=== PATIENT | male | born 1945 | race Caucasian/White ===

== ENCOUNTER 2017-03-03 12:13 | Inpatient (IN) ==
--- NOTE | 2017-03-03 10:12 | Magnetic Resonance Report ---
CLINICAL INFORMATION:Reason for Exam:Back pain COMPARISON: Abdomen CT of 02/21/17 TECHNIQUE: Sagittal T1 FLAIR, STIR, fast spin echo T2, axial T2 weighted images were acquired. FINDINGS: L5-S1 disc has a small midline posterior bulge. There is moderate arthritis in both facets. This is causing mild to moderate stenosis of the left-sided neural foramen. The central canal right-sided foramen are normal. At L4-5 disc is normal in height. There is a Schmorl's node along the inferior endplate of L4. Small posterior bulge is present. Moderate arthritis is present in the facets and there is hypertrophy of the ligamentum flavum, causing mild to moderate spinal canal stenosis. There is moderate stenosis of the right mild stenosis left side foramina. At L3-4 disc is mildly narrowed. Small midline bulge. There is severe arthritis in the facets and hypertrophy of ligamentum flavum causing moderately severe spinal canal stenosis. There is mild stenosis of both neural foramina. There is infiltration of bone marrow in the upper two thirds of the body of L3. There is no collapse of the vertebra or disruption of the overlying cortex. Slightly to left of midline, posteriorly, the superior endplate of L3 there is a Schmorl's node. Adjacent to this there is a small to intermediate sized broad-based posterior bulge. There is increased signal within the nucleus pulposus on the T2-weighted views. Mild arthritis is present in the facets. There is mild central canal stenosis at L to three. The neural foramina are normal in caliber. There is no paraspinal mass or abnormal fluid collection around the L3 vertebra. There are large anterior osteophytes at L2-3. L1-2 disc is moderately narrowed. There is a small broad-based posterior bulge and mild arthritis in the facets. This is not causing significant stenosis. There are large anterior osteophytes. T12-L1 disc space is normal. There is a Schmorl's node along the inferior endplate of T12 there medium-size anterior osteophytes. The spinal cord is normal and the conus is at the mid L1 level. IMPRESSION: Edema or inflammation in the bone marrow at L3 with altered signal in the nucleus pulposus at L2-3. The signal changes in the bone marrow could be Modic type I reactive changes secondary to disc degeneration. However, discitis and osteomyelitis is also the differential. Moderately severe spinal canal stenosis at L3-4 due to bulging discs and arthritis in the facets Mild to moderate spinal canal stenosis at L4-5 Interpreted and Authenticated by: Mitch Peraza 03/03/17
[2017-03-03] MEDS ORDERED: LIDOCAINE 1% 20 ML VIAL SQ ONE (12:14)
[2017-03-03] MEDS ORDERED: VANCOMYCIN 1,500 MG in 0.9 % SODIUM CHLORIDE 500 ML IV ONE (12:22)
--- NOTE | 2017-03-03 12:29 | Emergency Department Note ---
Back Pain HPI - General Chief Complaint: Back Pain/Injury Stated Complaint: osteomylitis Time Seen by Provider: 03/03/17 12:22 Source: patient Limitations: no limitations - History of Present Illness HPI Narrative: This patient has had localized low back pain since . He has been seen several times in the ER and primary and finally had an MRI today which showed concern for discitis and osteomyelitis at L2-3. He has had fever chills and does have a low-grade temp today. At one ER visit someone thought he might have pneumonia and to treating him with some antibiotics but have made no difference in his pain. Also hydrocodone has not helped his back pain. History of disc disease back surgery. - Related Data Home Medications Medication Instructions Recorded Confirmed Ascorbate Calcium [Vitamin C] 500 mg PO QDAY 04/23/15 03/01/17 Aspirin [Ecotrin] 81 mg PO QDAY 04/23/15 03/01/17 Fenofibrate,Micronized 134 mg PO QDAY 04/23/15 03/01/17 [Fenofibrate] Losartan/Hydrochlorothiazide 1 each PO QDAY 04/23/15 03/01/17 [Losartan-Hctz 100-25 mg Tab] Minocycline [Minocin] 100 mg PO DAILY 04/23/15 03/01/17 Potassium 99 mg PO QDAY 04/23/15 03/01/17 Rosuvastatin Calcium [Crestor] 5 mg PO HS 04/23/15 03/01/17 Vitamin E 100 unit PO QDAY 04/23/15 03/01/17 amitriptyline 10 mg tablet 20 mg PO HS tab 02/08/17 03/01/17 amlodipine 10 mg tablet 10 mg PO QDAY 02/08/17 03/03/17 ipratropium-albuterol 18 mcg-103 spray INHALATION 02/08/17 03/01/17 mcg/actuation aerosol inhaler predniSONE [Prednisone] 0 mg PO .COMPLEX 03/03/17 03/03/17 Previous Rx's Medication Instructions Recorded Aspirin [Ecotrin] 325 mg PO BID #28 tab.ec 04/27/15 Etodolac [Lodine] 400 mg PO BIDP PRN #20 tab 02/21/17 Methocarbamol [Robaxin-750] 750 mg PO TID PRN #30 tab 02/21/17 hydrocodone 10 mg-acetaminophen 1 tab PO Q6H PRN #60 tab 03/03/17 325 mg tablet Allergies Allergy/AdvReac Type Severity Reaction Status Date / Time No Known Drug Allergies Allergy Verified 03/03/17 07:20 Review of Systems Constitutional: Reports: fever, chills Musculoskeletal: Reports: back pain Past Medical History - Past Medical History COUNTS INCLUDE 234 BEDS AT THE [facility] Narrative: Medical History (Last Reviewed 03/01/17 @ 11:59 by Annabelle Lee DO) Strain of lumbar region (Acute) Thoracic back pain (Acute) Back pain (Acute) Rosacea (Chronic) COPD (chronic obstructive pulmonary disease) (Chronic) Wellness examination (Chronic) History of tobacco abuse (Chronic) Joint pain (Chronic) Hyperlipidemia (Chronic) Hypertension, essential (Chronic) Irregular heart beat (Chronic ~2006) Lung disorder (Chronic) Effusion, right knee (Acute) Rosacea (Chronic) Past Surgical History (Last Reviewed 03/01/17 @ 11:59 by Annabelle Lee DO) H/O rotator cuff surgery (Chronic) History of total left knee replacement (Chronic) Hx of appendectomy (Chronic) S/P herniorrhaphy (Chronic) Status post right partial knee replacement (Chronic) Family History (Last Reviewed 03/01/17 @ 11:59 by Annabelle Lee DO) Father Arthritis Diabetes Sister Breast cancer Medical history: Reports: COPD, hyperlipidemia, hypertension Surgical history ED: Reports: appendectomy, herniorrhaphy, knee replacement, orthopedic, other (Rotator cuff) - Social History smoking status: Former smoker Alcohol use: Reports: Occasionally Drug use: Reports: none Physical Exam Limitations: no limitations General appearance: alert Head: atraumatic Eye: Present: normal appearance ENT: normal exam Neck: Present: normal inspection Chest: Present: normal inspection Respiratory: Present: normal lung sounds bilaterally Cardiovascular: Present: regular rate, normal rhythm, normal heart sounds Abdominal: Present: soft. Absent: distention, tenderness Back: Present: normal inspection, tenderness, paraspinal tenderness, vertebral tenderness Neurological: Present: alert Psychiatric: Present: normal affect, normal mood Skin: Present: warm, dry, intact Course Vital Signs Temperature 97.9 F 03/03/17 12:14 Pulse Rate 85 03/03/17 12:14 Respiratory Rate 16 03/03/17 12:14 Blood Pressure 153/89 03/03/17 12:14 Pulse Oximetry (%) 95 03/03/17 12:14 Temperature 97.9 F 03/03/17 12:14 Pulse Rate 74 03/03/17 14:47 Respiratory Rate 16 03/03/17 12:14 Blood Pressure 158/86 03/03/17 14:47 Pulse Oximetry (%) 94 03/03/17 14:47 Back Pain/Injury - MDM Narrative Medical decision making narrative: Have discussed this case with Dr. Sol who requests an aspiration of the disc space by the radiologist. Dr. Peraza is agreeable to doing this. Patient was given vancomycin here in the emergency room. He will be admitted to the hospital by Dr. Gonzalez with Dr. Sol consulting. - Lab Data Lab results reviewed: Yes I reviewed the patient's lab results. Result diagrams: 03/03/17 12:32 03/03/17 13:27 Lab Results 03/03/17 03/03/17 03/03/17 Range/Units 12:32 12:32 13:27 WBC 18.2 H (4.5-11.0) K/mcL RBC 4.60 (4.50-5.90) M/mcL Hgb 14.5 (13.5-16.5) g/dL Hct 42.8 (41.0-55.0) % MCV 93.0 (80.0-100.0) fL MCH 31.6 (26.0-34.0) pg MCHC 34.0 (31.0-36.0) g/dL RDW 12.9 (11.5-14.5) % Plt Count 426 (140-440) K/mcL MPV 9.3 (7.4-10.4) fL Gran % 91.2 H (38.0-78.0) % Lymph % (Auto) 5.0 L (15.5-49.0) % [place] % (Auto) 2.9 (1.0-12.0) % Eos % (Auto) 0.3 (0.0-7.0) % Baso % (Auto) 0.6 (0.0-2.0) % Gran # 16.6 H (1.8-8.0) K/mcL Lymph # (Auto) 0.9 L (1.5-4.8) K/mcL [place] # (Auto) 0.5 (0.1-0.9) K/mcL Eos # (Auto) 0.1 (0.0-0.7) K/mcL Baso # (Auto) 0.1 (0.0-0.3) K/mcL ESR 57 H (0-15) mm/hr Sodium TNP 133 Potassium TNP 4.7 Chloride TNP 94 L Carbon Dioxide TNP 27 Anion Gap TNP 12.0 BUN TNP 17 Creatinine TNP 0.8 GFR Calculation Not Reportable 90 Glucose TNP 126 H Calcium TNP 9.5 Total Bilirubin TNP 0.6 AST TNP 13 ALT TNP 17 Alkaline Phosphatase TNP 79 C-React Prot High Sens TNP 38.6 H Total Protein TNP 6.9 Albumin TNP 4.0 Globulin TNP 2.9 Albumin/Globulin Ratio TNP 1.4 Disposition Pt seen by [employer]/PA only: No Clinical Impression: Discitis of lumbar region Disposition: Xfer As Inpt ([facility]) Condition: Good Referrals: Annabelle Lee DO [Primary Care Provider] - Time of Disposition: 15:23
[2017-03-03] MEDS: 0.9 % SODIUM CHLORIDE 1,000 ML IV SCH ×2 (12:45→22:38)
[2017-03-03] MEDS: HYDROmorphone 2 MG/ML SYRINGE IV PRN ×5 (12:58→23:34)
[2017-03-03 13:05] LABS: Basophils # (Auto) 0.1 K/mcL (0.0-0.3); Basophils % (Auto) 0.6 % (0.0-2.0); Eosinophils # (Auto) 0.1 K/mcL (0.0-0.7); Eosinophils % (Auto) 0.3 % (0.0-7.0); Granulocytes % (Auto) 91.2 % (38.0-78.0); Lymphocytes # (Auto) 0.9 K/mcL (1.5-4.8); Mean Corpuscular Hemoglobin 31.6 pg (26.0-34.0); Monocytes # (Auto) 0.5 K/mcL (0.1-0.9); Monocytes % (Auto) 2.9 % (1.0-12.0); Platelet Count 426 K/mcL (140-440); Red Cell Distribution Width 12.9 % (11.5-14.5)
[2017-03-03 14:24] LABS: Erythrocyte Sedimentation Rate 57 mm/hr (0-15)
[2017-03-03 14:31] LABS: ALT/SGPT 17 U/l (0-40); Albumin/Globulin Ratio 1.4 (1.0-2.3); Alkaline Phosphatase 79 U/L (39-117); Blood Urea Nitrogen 17 mg/dl (8-23)
[2017-03-03 14:42] LABS: CRP,High Sensitivity 38.6 mg/L (1.0-3.0)
--- NOTE | 2017-03-03 15:37 | Internal Med History&Physical ---
Medical - H&P: HPI Patient information: Note initiated : 03/03/17 at 3:34 pm Service Date, if different from initiated Date: [] Patient: Cesar Nassar a 71 y/o M admitted on for osteomylitis. Chief Complaint: [] History of present illness: Mr. Nassar is a 71 year old man with a history of COPD and hypertension, who has been struggling with low back pain for about 3 weeks. He has had increasing problems getting his pain control. Has been to see either his primary care provider or the emergency room 5 times now, with uncontrolled pain. He was finally sent back into the emergency room today, and underwent an MRI, which is suggestive of possible discitis. He and his report that he has had a fever as high as 101 for about 4 days now. He describes the pain in his low back is a feeling that everything is just tensing up and he just cannot get comfortable or relax. He cannot lay down in bed, so he has been sleeping in a recliner. He rates his pain currently as a 10 out of 10. During 1 of his recent ER visits he was diagnosed with possible pneumonia and treated with antibiotics. However subsequent reading of that chest film did not show pneumonia. The patient said he did have a slight cough at the time, but that is resolved. Otherwise, he denies headaches or dizziness new eye or ear symptoms sinus or teeth pain, sore throat, chest pain or palpitations. He does have chronic dyspnea on exertion due to COPD, which is unchanged. He denies abdominal pain, nausea or vomiting, diarrhea. He does note chronic constipation for which he takes a stool softener. He denies dysuria other than fairly frequent urination , which is chronic. He denies recent back trauma and he has had no known bacteremia or surgeries. I believe his last surgery was a right knee replacement in April of 2015. He was treated with a steroid taper on February 22, but he had had symptoms for quite some time at that point. Medical History Rosacea (Chronic) COPD (chronic obstructive pulmonary disease) (Chronic) History of tobacco abuse-resolved. Joint pain (Chronic) Hyperlipidemia (Chronic) Hypertension, essential (Chronic) Irregular heart beat (Chronic ~2006) Effusion, right knee (Acute) Surgical History H/O rotator cuff surgery (Chronic) 2006 x2 History of total left knee replacement (Chronic) 2011 Hx of appendectomy (Chronic) 2004 S/P herniorrhaphy (Chronic) 1970's Status post right partial knee replacement (Chronic) 2015 Medication List amitriptyline 20 mg PO HS amlodipine (Norvasc) 10 mg PO QDAY ascorbate calcium 500 mg PO QDAY aspirin 81 mg PO QDAY Not started yet: Etodolac 400 mg PO BIDP PRN fenofibrate micronized 134 mg PO QDAY hydrocodone-acetaminophen 7.5-325 mg 1 tab PO 3-4XD ipratropium-albuterol 18-103 mcg/actuation sprays 4 times daily as needed. losartan-hydrochlorothiazide 100-25 mg 1 ea PO QDAY methocarbamol 750 mg PO TID PRN minocycline 100 mg PO DAILY potassium 99 mg PO QDAY 02/22: prednisone take 4 tabs x 3 days then 3 tabs x 3 days, then 2 tabs x three days, then 1 tab x 3 days, then stop PO ; administer with food or milk rosuvastatin 5 mg PO HS vitamin E 100 units PO QDAY Allergies/Adverse Reactions No Known Drug Allergies Allergy Family History Father Arthritis Diabetes Sister Breast cancer Mother of "old age" Social History The patient is and lives with his . He does have family in town. He smoked from the age of 15 until approximately age 53, and then quit. He drinks 1-2 alcoholic drinks per day, usually bourbon. He does not use drugs. Medical - H&P: Meds Home Medications Medication Instructions Recorded Confirmed Type Ascorbate Calcium [Vitamin C] 500 mg PO QDAY 04/23/15 03/01/17 History Aspirin [Ecotrin] 81 mg PO QDAY 04/23/15 03/01/17 History Fenofibrate,Micronized 134 mg PO QDAY 04/23/15 03/01/17 History [Fenofibrate] Losartan/Hydrochlorothiazide 1 each PO QDAY 04/23/15 03/01/17 History [Losartan-Hctz 100-25 mg Tab] Minocycline [Minocin] 100 mg PO DAILY 04/23/15 03/01/17 History Potassium 99 mg PO QDAY 04/23/15 03/01/17 History Rosuvastatin Calcium [Crestor] 5 mg PO HS 04/23/15 03/01/17 History Vitamin E 100 unit PO QDAY 04/23/15 03/01/17 History Aspirin [Ecotrin] 325 mg PO BID #28 tab.ec 04/27/15 03/01/17 Rx amitriptyline 10 mg tablet 20 mg PO HS tab 02/08/17 03/01/17 History amlodipine 10 mg tablet 10 mg PO QDAY 02/08/17 03/03/17 History ipratropium-albuterol 18 mcg-103 spray INHALATION 02/08/17 03/01/17 History mcg/actuation aerosol inhaler Etodolac [Lodine] 400 mg PO BIDP PRN #20 tab 02/21/17 03/03/17 Rx Methocarbamol [Robaxin-750] 750 mg PO TID PRN #30 tab 02/21/17 03/03/17 Rx hydrocodone 10 mg-acetaminophen 1 tab PO Q6H PRN #60 tab 03/03/17 Rx 325 mg tablet predniSONE [Prednisone] 0 mg PO .COMPLEX 03/03/17 03/03/17 History Allergies Allergy/AdvReac Type Severity Reaction Status Date / Time No Known Drug Allergies Allergy Verified 03/03/17 07:20 Medical - H&P: Exam - Constitutional Vitals: Temp Pulse Resp BP Pulse Ox 97.9 F 74 16 158/86 94 03/03/17 12:14 03/03/17 14:47 03/03/17 12:14 03/03/17 14:47 03/03/17 14:47 O2 sats ranged from 89-100%. This is a well-developed well-nourished elderly man, who appears quite uncomfortable. He is constantly shifting in bed trying to relieve his back pain. Head: Normocephalic, atraumatic. Rosacea is present. Ears: TMs and canals are clear. Eyes: PERRLA, EOMI, anicteric. Pharynx: Pharynx is normal in appearance mucosa is normal in appearance. Teeth are in good condition. Neck: Is supple without obvious lymphadenopathy, JVD, thyromegaly, bruits. Cardiac exam: Shows regular rate and rhythm with normal S1 and S2 without murmurs rubs or gallops. Lungs: Have slightly decreased breath sounds, but otherwise are clear to auscultation, without rales, rhonchi, wheezes. Abdomen: Is soft and nontender, but a difficult exam, as the patient insists on sitting upright. Bowel sounds appear active. Back: There is a small Band-Aid to the right of his mid lumbar spine where he had his recent aspiration done. He does not seem to have any particular tenderness over the spine itself. Extremities: Show no cyanosis, clubbing, edema. There is a well-healed scar over the left knee. Neurologic: The patient is alert and oriented, calm but appears uncomfortable. Cranial nerves are grossly intact. Motor strength appears intact throughout, but the patient resists exam of his lower extremities because he is so uncomfortable. Any movement of his legs exacerbates his back pain, which is in the lumbar area and just to the right of the lumbar spine. Medical - H&P: Reslt - Labs CBC & Chem 7: 03/03/17 12:32 03/03/17 13:27 Labs: Short CBC 03/03/17 Range/Units 12:32 WBC 18.2 H (4.5-11.0) K/mcL Hgb 14.5 (13.5-16.5) g/dL Hct 42.8 (41.0-55.0) % Plt Count 426 (140-440) K/mcL BMP 03/03/17 03/03/17 12:32 13:27 Sodium TNP 133 Potassium TNP 4.7 Chloride TNP 94 L Carbon Dioxide TNP 27 BUN TNP 17 Creatinine TNP 0.8 Glucose TNP 126 H Calcium TNP 9.5 Liver Function 03/03/17 03/03/17 Range/Units 12:32 13:27 Total Bilirubin TNP 0.6 AST TNP 13 ALT TNP 17 Alkaline Phosphatase TNP 79 Albumin TNP 4.0 March 03: Spine MRI: IMPRESSION: Edema or inflammation in the bone marrow at L3 with altered signal in the nucleus pulposus at L2-3. The signal changes in the bone marrow could be Modic type I reactive changes secondary to disc degeneration. However, discitis and osteomyelitis is also the differential. Moderately severe spinal canal stenosis at L3-4 due to bulging discs and arthritis in the facets. Mild to moderate spinal canal stenosis at L4-5. CBC: White blood cell count is 18,000, hemoglobin 14, hematocrit 42, platelets 426,000. Differential shows 16,600 granulocytes, 900 lymphocytes Sed rate is high at 57 CRP is elevated at 38 Lactic acid: Pro-calcitonin: Chemistry panel: Show sodium 133, potassium 4.7, chloride 94, bicarb 27, BUN 17 , creatinine 0.8 February 22: CT abdomen and pelvis: IMPRESSION: 1. No evidence of obstructing stone or hydronephrosis. No cause identified for bilateral flank pain 2. 1 mm nonobstructing stone inferior calyx the left kidney 3. Mild prostate enlargement 4. Degenerative central canal, lateral recess and IV foraminal stenosis at L2-3, L3-4 and L4-5. Could the patient's pain be radicular in origin? 5. Moderate emphysema - both lung bases 6. Mild pancreatic atrophy Chest x-ray: Shows mild bibasilar atelectasis. Urinalysis: Shows 4.0 urobilinogen, otherwise normal. February 21: Lumbar spine x-ray: IMPRESSION: 1. Mild chronic wedging of the T10-L1 vertebral bodies due to minimal compression fractures or chronic Scheuermann's disease 2. Degenerative change February 08, 2017: TSH is normal at 2.48 Hepatitis C antibody: Is nonreactive Medical - H&P: A/P (1) Septic discitis of lumbar region Current visit: Yes Status: Acute (2) COPD (chronic obstructive pulmonary disease) Current visit: No Status: Chronic (3) Hypertension, essential Current visit: No Status: Chronic - Narrative A/P Narrative: #1. Infectious disease. Patient presents with severe back pain, significant leukocytosis, and spine MRI suggestive of discitis. -He will be admitted for closer observation and IV antibiotics, empiric coverage with cefepime and vancomycin.. -Frequent neuro checks. -Orthopedic consult with Dr. Sol. If patient develops any neuro deficits, he will need to be transferred out. -Dr. Sol has asked radiology to aspirate this area. Aspirate will be sent for culture.. #2. Cardiac. History of hypertension and questionable arrhythmia. -Monitor. -Continue Norvasc, losartan, HCTZ, cholesterol meds. 3. Pulmonary. History of COPD. Duo nebs plus as needed albuterol. 4. CODE STATUS: Full code. 5. DVT prophylaxis: Subcu heparin ordered, and patient also takes aspirin. I will check with radiology to see if they want us to hold either of these after his aspiration. Aminata's visit took approximately 60 minutes, to review his case with the ER MD twice, review his records and test results, interview and examine him, review plan of care with the patient and his , and write orders.
[2017-03-03] MEDS ORDERED: ACETAMINOPHEN 325 MG TABLET PO PRN (18:01)
[2017-03-03] MEDS ORDERED: NALOXONE HCL 0.4 MG/ML VIAL IV PRN (18:01)
[2017-03-03] MEDS ORDERED: VANCOMYCIN PER PHARMACY IV ONE (18:01)
[2017-03-03] MEDS ORDERED: CALCIUM CARBONATE 500 MG TAB.CHEW CHEWED PRN (18:01)
[2017-03-03] MEDS ORDERED: ALBUTEROL SULFATE 2.5 MG/3 ML NEBULIZER NEB PRN (18:01)
[2017-03-03] MEDS ORDERED: ONDANSETRON 4 MG/2 ML VIAL IV PRN (18:01)
[2017-03-03] MEDS ORDERED: IBUPROFEN 600 MG TABLET PO PRN (19:45)
[2017-03-03] MEDS ORDERED: IPRATROPIUM/ALBUTEROL 3 ML AMPUL.NEB NEB PRN (19:46)
[2017-03-03] MEDS: HYDROcodone/APAP 5/325MG TABLET PO PRN (20:16)
[2017-03-03] MEDS ORDERED: IPRATROPIUM/ALBUTEROL 3 ML AMPUL.NEB NEB SCH (21:00)
[2017-03-03] MEDS ORDERED: HEPARIN 5,000 UNIT/ML VIAL SQ SCH (21:00)
[2017-03-03] MEDS ORDERED: HYDROmorphone 2 MG/ML SYRINGE ONE (21:44)
[2017-03-03] MEDS: CEFEPIME 2 GM VIAL IV SCH (21:46)
[2017-03-03] MEDS: AMITRIPTYLINE 10 MG TABLET PO SCH (23:32)
[2017-03-03] MEDS: 0.9 % SODIUM CHLORIDE 10 ML SYRINGE IV SCH (23:32)
[2017-03-04] MEDS: HYDROmorphone 2 MG/ML SYRINGE IV PRN ×13 (04:04→23:41)
[2017-03-04] MEDS: 0.9 % SODIUM CHLORIDE 10 ML SYRINGE IV SCH ×3 (04:07→21:19)
[2017-03-04 06:33] LABS: Basophils # (Auto) 0 K/mcL (0.0-0.3); Basophils % (Auto) 0.4 % (0.0-2.0); Eosinophils # (Auto) 0.2 K/mcL (0.0-0.7); Eosinophils % (Auto) 1.9 % (0.0-7.0); Lymphocytes # (Auto) 1.6 K/mcL (1.5-4.8); Lymphocytes % (Auto) 16.3 % (15.5-49.0); Mean Cell Volume 93.3 fL (80.0-100.0); Mean Corpuscular HGB Conc 34.7 g/dL (31.0-36.0); Mean Corpuscular Hemoglobin 32.3 pg (26.0-34.0); Monocytes # (Auto) 0.7 K/mcL (0.1-0.9); Monocytes % (Auto) 7.4 % (1.0-12.0); Platelet Count 355 K/mcL (140-440); RBC 3.84 M/mcL (4.50-5.90); Red Cell Distribution Width 12.8 % (11.5-14.5)
[2017-03-04] MEDS: HYDROcodone/APAP 5/325MG TABLET PO PRN ×4 (07:12→21:49)
[2017-03-04] MEDS ORDERED: VANCOMYCIN PER PHARMACY IV SCH (07:15)
[2017-03-04 07:21] LABS: ALT/SGPT 12 U/l (0-40); Albumin 3.4 gm/dL (3.2-5.2); Albumin/Globulin Ratio 1.2 (1.0-2.3); Alkaline Phosphatase 69 U/L (39-117); Bilirubin,Direct < 0.2 mg/dL (0.0-0.3); Blood Urea Nitrogen 16 mg/dl (8-23); C-Reactive Protein 7.2 mg/dl (0.0-0.8); Gamma Glutamyl Transpeptidase 48 U/L (8-61); Uric Acid 3.2 mg/dL (2.5-8.0)
[2017-03-04] MEDS: METHOCARBAMOL 750 MG TABLET PO PRN ×2 (08:11→16:57)
[2017-03-04] MEDS ORDERED: KETOROLAC 15 MG/ML VIAL IV ONE (08:46)
[2017-03-04] MEDS ORDERED: ACETAMINOPHEN 1,000 MG/100 ML BOTTLE IV PRN (08:50)
--- NOTE | 2017-03-04 08:51 | Orthopedic History & Physical ---
History of Present Illness Patient information: Note initiated : 03/04/17 at 8:48 am Service Date, if different from initiated Date: [] Patient: Cesar Nassar a 71 y/o M admitted on 03/03/17 for osteomylitis. Chief Complaint: [Low back pain] HPI: Mr. Nassar is a 71 year old male who was admitted yesterday for intractable low back pain that came on suddenly w/o injury. He denies any lower extremity paresthesias, weakness, saddle paresthesias, or bowel/bladder incontinence. Recent labs show an elevated WBC, CRP, and ESR as well as an MRI which shows increase signal change of the L2-3 disc space and L3 vertebral elise. Review of Systems All systems PM: reviewed and no additional remarkable complaints except as stated Past History Past medical history: Non-contributory Past surgical history: Non-contributory Past family history: Non-contributory Past social history: Non-contributory Medications and Allergies Home Medications Medication Instructions Recorded Confirmed Type Ascorbate Calcium [Vitamin C] 500 mg PO QDAY 04/23/15 03/03/17 History Aspirin [Ecotrin] 81 mg PO QDAY 04/23/15 03/03/17 History Fenofibrate,Micronized 134 mg PO QDAY 04/23/15 03/03/17 History [Fenofibrate] Losartan/Hydrochlorothiazide 1 each PO QDAY 04/23/15 03/03/17 History [Losartan-Hctz 100-25 mg Tab] Minocycline [Minocin] 100 mg PO DAILY 04/23/15 03/03/17 History Potassium 99 mg PO QDAY 04/23/15 03/03/17 History Rosuvastatin Calcium [Crestor] 5 mg PO HS 04/23/15 03/03/17 History Vitamin E 100 unit PO QDAY 04/23/15 03/03/17 History Aspirin [Ecotrin] 325 mg PO BID #28 tab.ec 04/27/15 03/01/17 Rx amitriptyline 10 mg tablet 20 mg PO HS tab 02/08/17 03/03/17 History amlodipine 10 mg tablet 10 mg PO QDAY 02/08/17 03/03/17 History ipratropium-albuterol 18 mcg-103 spray INHALATION 02/08/17 03/01/17 History mcg/actuation aerosol inhaler Etodolac [Lodine] 400 mg PO BIDP PRN #20 tab 02/21/17 03/03/17 Rx Methocarbamol [Robaxin-750] 750 mg PO TID PRN #30 tab 02/21/17 03/03/17 Rx hydrocodone 10 mg-acetaminophen 1 tab PO Q6H PRN #60 tab 03/03/17 03/03/17 Rx 325 mg tablet predniSONE [Prednisone] 0 mg PO .COMPLEX 03/03/17 03/03/17 History Allergies Allergy/AdvReac Type Severity Reaction Status Date / Time No Known Drug Allergies Allergy Verified 03/03/17 07:20 Physical Examination - Lumbar Spine Back pain: sudden onset Pain modifiers: with flexion, with extension Other nerve symptoms: other (No sensorimotor deficits. Bilateral lower extremities are NVI.) Tenderness with palpation: lumbar spine Appearance: normal Results - Labs Result Diagrams: 03/04/17 04:37 03/04/17 04:37 Labs: Abnormal lab results 03/03/17 03/03/17 03/04/17 Range/Units 12:32 13:27 04:37 WBC 18.2 H (4.5-11.0) K/mcL RBC 3.84 L (4.50-5.90) M/mcL Hgb 12.4 L (13.5-16.5) g/dL Hct 35.8 L (41.0-55.0) % Gran % 91.2 H (38.0-78.0) % Lymph % (Auto) 5.0 L (15.5-49.0) % Gran # 16.6 H (1.8-8.0) K/mcL Lymph # (Auto) 0.9 L (1.5-4.8) K/mcL ESR 57 H (0-15) mm/hr Chloride 94 L (96-108) mmol/L Glucose 126 H (70-105) mg/dL C-Reactive Protein (0.0-0.8) mg/dl C-React Prot High Sens 38.6 H (1.0-3.0) mg/L 03/04/17 Range/Units 04:37 WBC (4.5-11.0) K/mcL RBC (4.50-5.90) M/mcL Hgb (13.5-16.5) g/dL Hct (41.0-55.0) % Gran % (38.0-78.0) % Lymph % (Auto) (15.5-49.0) % Gran # (1.8-8.0) K/mcL Lymph # (Auto) (1.5-4.8) K/mcL ESR (0-15) mm/hr Chloride 94 L (96-108) mmol/L Glucose (70-105) mg/dL C-Reactive Protein 7.2 H (0.0-0.8) mg/dl C-React Prot High Sens (1.0-3.0) mg/L H & H 03/03/17 03/04/17 Range/Units 12:32 04:37 Hgb 14.5 12.4 L (13.5-16.5) g/dL Hct 42.8 35.8 L (41.0-55.0) % All other labs normal. - Diagnostic results Lumbar MRI with/without contrast: report reviewed (MRI of the lumbar spine shows increased signal change in the L2-3 disc space as well as in the L3 vertebral body. There is no sign of abcess or mass affect.) Assessment and Plan (1) Discitis of lumbar region Mr. Nassar presents with sudden onset low back pain. Due to the elevated WBC, CRP, and ESR coupled with the MRI showing increased signal changes of both the L2-3 disc space and L3 vertebral body, I believe it is likely discitis causing his symptoms. On physical exam, he does not have any neurological deficits. We will continue IV antibiotics for both gram positive and gram negative coverage until culture results are back. The gram stain is essentially negative. If his symptoms worsen or he develops neurological deficits despite IV abx, he will likely need to be transferred for surgical intervention as Dr. Sol is not available to operate at this time. We will continue to manage his pain as well throughout his stay. Patient agrees with this plan and his questions were addressed. Dr. Sol also consulted the patient. Status: Acute
[2017-03-04] MEDS: FENOFIBRATE 43 MG CAPSULE PO SCH (10:02)
[2017-03-04] MEDS: ASPIRIN 81 MG TAB.CHEW PO SCH (10:02)
[2017-03-04] MEDS: amLODIPine 10 MG TABLET PO SCH (10:03)
[2017-03-04] MEDS: HEPARIN 5,000 UNIT/ML VIAL SQ SCH ×2 (10:03→21:18)
[2017-03-04] MEDS: LOSARTAN 50 MG TABLET PO SCH (10:03)
[2017-03-04] MEDS: CEFEPIME 2 GM VIAL IV SCH ×2 (10:03→21:18)
[2017-03-04] MEDS: HYDROCHLOROTHIAZIDE 25 MG TABLET PO SCH (10:04)
[2017-03-04] MEDS: VANCOMYCIN 1,500 MG in 0.9 % SODIUM CHLORIDE 500 ML IV SCH (10:04)
[2017-03-04] MEDS: ASCORBIC ACID 500 MG TABLET PO SCH (10:04)
--- NOTE | 2017-03-04 12:08 | Internal Med Progress Note ---
Medical - PN: Subj Patient information: Note initiated : 03/04/17 at 12:08 pm Service Date, if different from initiated Date: [] Patient: Cesar Nassar 71 y/o M admitted on 03/03/17 for osteomylitis. Chief Complaint: [] Interval history: March 03, 2017: History of present illness: Mr. Nassar is a 71 year old man with a history of COPD and hypertension, who has been struggling with low back pain for about 3 weeks. He has had increasing problems getting his pain control. Has been to see either his primary care provider or the emergency room 5 times now, with uncontrolled pain. He was finally sent back into the emergency room today, and underwent an MRI, which is suggestive of possible discitis. He and his report that he has had a fever as high as 101 for about 4 days now. He describes the pain in his low back is a feeling that everything is just tensing up and he just cannot get comfortable or relax. He cannot lay down in bed, so he has been sleeping in a recliner. He rates his pain currently as a 10 out of 10. During 1 of his recent ER visits he was diagnosed with possible pneumonia and treated with antibiotics. However subsequent reading of that chest film did not show pneumonia. The patient said he did have a slight cough at the time, but that is resolved. Otherwise, he denies headaches or dizziness new eye or ear symptoms sinus or teeth pain, sore throat, chest pain or palpitations. He does have chronic dyspnea on exertion due to COPD, which is unchanged. He denies abdominal pain, nausea or vomiting, diarrhea. He does note chronic constipation for which he takes a stool softener. He denies dysuria other than fairly frequent urination , which is chronic. He denies recent back trauma and he has had no known bacteremia or surgeries. I believe his last surgery was a right knee replacement in April of 2015. He was treated with a steroid taper on February 22, but he had had symptoms for quite some time at that point. March 04: Today, the patient continues to have occasional severe low back pain that is just to the right of his lower lumbar spine. In between these episodes he is quite comfortable. He says he definitely woke up feeling better this morning than he did yesterday. He otherwise denies fever or chills, headaches or dizziness, chest pain or shortness of breath, GI or symptoms. He is not really experiencing any lower extremity weakness or sensory changes. He does have occasional spasms of the right leg when his right low back is hurting. - Constitutional Vitals: Vital Signs Temp Pulse Resp BP Pulse Ox 97.9 F 73 16 134/72 92 03/04/17 11:33 03/04/17 04:00 03/04/17 11:33 03/04/17 11:33 03/04/17 11:33 Period Temp Pulse Resp BP Sys/Octe Pulse Ox Last 24 Hr 97.4 F-98.7 F 39-115 16-18 121-158/72-97 89-100 Intake and Output 03/03/17 03/04/17 03/04/17 21:59 05:59 13:59 Intake Total 2120 / 2120 600 / 600 200 / 200 Output Total 175 / 175 375 / 375 Balance 1945 / 1945 225 / 225 200 / 200 Weight 197 lb 8 oz 197 lb 8 oz Patient Weight 03/05/17 05:59 Weight 197 lb 8 oz Intake & Output: Intake & Output 03/03/17 03/04/17 03/04/17 21:59 05:59 13:59 Intake Total 2120 / 2120 600 / 600 200 / 200 Output Total 175 / 175 375 / 375 Balance 1945 / 1945 225 / 225 200 / 200 Weight 197 lb 8 oz 197 lb 8 oz Intake: IV 2000 / 2000 Sodium Chloride 0.9% 1,000 ml @ 1000 / 1000 250 mls/hr IV .Q4H LUC Rx#: [id number] Vancomycin 1,500 mg In Sodium 1000 / 1000 Chloride 0.9% 500 ml @ 333.3 mls/hr IV ONCE ONE Rx#: [id number] Oral 120 / 120 600 / 600 200 / 200 Output: Void Amount 175 / 175 375 / 375 Other: Meal Dinner Breakfast Percent of Meal Consumed 50% 100% Feeding Ability Assist with Tray Set Up # Voids 1 1 On exam, he is sitting up in a chair, and is not currently in any acute distress. Neck is supple without lymphadenopathy or JVD. Cardiac exam shows regular rate and rhythm. Lungs are clear to auscultation. Abdomen is soft and nontender. Examination of his back does not show any tenderness over his lumbar spine, but he continues to point the right lower paraspinal area as the site of tenderness and muscle spasm. Lower legs showed no cyanosis, clubbing, edema. Neurologic exam is otherwise grossly nonfocal. Medical - PN: Obj Da - Labs CBC & Chem 7: 03/04/17 04:37 03/04/17 04:37 Labs: Abnormal Lab Results 03/04/17 03/04/17 03/03/17 04:37 04:37 13:27 WBC RBC 3.84 L Hgb 12.4 L Hct 35.8 L Gran % Lymph % (Auto) Gran # Lymph # (Auto) ESR Chloride 94 L 94 L Glucose 126 H C-Reactive Protein 7.2 H C-React Prot High Sens 38.6 H 03/03/17 12:32 WBC 18.2 H RBC Hgb Hct Gran % 91.2 H Lymph % (Auto) 5.0 L Gran # 16.6 H Lymph # (Auto) 0.9 L ESR 57 H Chloride Glucose C-Reactive Protein C-React Prot High Sens March 04: CBC: White blood cell count is down to 9000, hemoglobin 12, hematocrit 35.8. CRP is 7.2 Blood cultures from March 03: Are growing gram-positive cocci. L1 aspirate: Gram stain shows rare polys, few red blood cells, no organisms. March 03: Spine MRI: IMPRESSION: Edema or inflammation in the bone marrow at L3 with altered signal in the nucleus pulposus at L2-3. The signal changes in the bone marrow could be Modic type I reactive changes secondary to disc degeneration. However, discitis and osteomyelitis is also the differential. Moderately severe spinal canal stenosis at L3-4 due to bulging discs and arthritis in the facets. Mild to moderate spinal canal stenosis at L4-5. CBC: White blood cell count is 18,000, hemoglobin 14, hematocrit 42, platelets 426,000. Differential shows 16,600 granulocytes, 900 lymphocytes Sed rate is high at 57 High-sensitivity CRP is elevated at 38 Lactic acid: Normal at 0.9 Pro-calcitonin: Normal at less than 0.05 Chemistry panel: Show sodium 133, potassium 4.7, chloride 94, bicarb 27, BUN 17 , creatinine 0.8 February 22: CT abdomen and pelvis: IMPRESSION: 1. No evidence of obstructing stone or hydronephrosis. No cause identified for bilateral flank pain 2. 1 mm nonobstructing stone inferior calyx the left kidney 3. Mild prostate enlargement 4. Degenerative central canal, lateral recess and IV foraminal stenosis at L2-3, L3-4 and L4-5. Could the patient's pain be radicular in origin? 5. Moderate emphysema - both lung bases 6. Mild pancreatic atrophy Chest x-ray: Shows mild bibasilar atelectasis. Urinalysis: Shows 4.0 urobilinogen, otherwise normal. February 21: Lumbar spine x-ray: IMPRESSION: 1. Mild chronic wedging of the T10-L1 vertebral bodies due to minimal compression fractures or chronic Scheuermann's disease 2. Degenerative change February 08, 2017: TSH is normal at 2.48 Hepatitis C antibody: Is nonreactive Meds: Medications Acetaminophen (Tylenol) 650 mg PO Q6HP PRN PRN Reason: PAIN/FEVER > 101 Last Admin: 03/03/17 21:45 Dose: 650 mg Hydrocodone Bitart/Acetaminophen ([place] 5/325mg) 1 tab PO Q4HP PRN PRN Reason: PAIN LEVEL 3-6 Last Admin: 03/04/17 07:12 Dose: 1 tab Albuterol Sulfate (Ventolin) 2.5 mg NEB Q2HP PRN PRN Reason: Shortness Of Breath Albuterol/Ipratropium (Duoneb) 3 ml NEB TID PRN PRN Reason: Shortness Of Breath Or Wheezing Amitriptyline HCl (Elavil) 20 mg PO HS [facility] Last Admin: 03/03/17 23:32 Dose: 20 mg Amlodipine Besylate (Norvasc) 10 mg PO QDAY [facility] Last Admin: 03/04/17 10:03 Dose: 10 mg Ascorbic Acid (Vitamin C) 500 mg PO DAILY [facility] Last Admin: 03/04/17 10:04 Dose: 500 mg Aspirin (Aspirin) 81 mg PO DAILY [facility] Last Admin: 03/04/17 10:02 Dose: 81 mg Atorvastatin Calcium (Lipitor) 20 mg PO HS [facility] Calcium Carbonate/Glycine (Tums) 1,000 mg CHEWED Q4HP PRN PRN Reason: Dyspepsia Cefepime HCl (Maxipime) 2 gm IV Q12H [facility] Last Admin: 03/04/17 10:03 Dose: 2 gm Docusate Sodium (Colace) 100 mg PO BID PRN PRN Reason: Constipation Fenofibrate (Antara) 129 mg PO DAILY [facility] Last Admin: 03/04/17 10:02 Dose: 129 mg Heparin Sodium (Porcine) (Heparin) 5,000 unit SQ Q12 [facility] Last Admin: 03/04/17 10:03 Dose: 5,000 unit Hydrochlorothiazide (Oretic) 25 mg PO DAILY [facility] Last Admin: 03/04/17 10:04 Dose: 25 mg Hydromorphone HCl (Dilaudid) 1 mg IV Q1HP PRN PRN Reason: PAIN LEVEL > 6 Last Admin: 03/04/17 10:20 Dose: 1 mg Vancomycin HCl 1,500 mg/ (Sodium Chloride) 500 mls @ 333.3 mls/hr IV Q24H [facility] Last Admin: 03/04/17 10:04 Dose: 333.3 mls/hr Acetaminophen (Ofirmev) 1,000 mg in 100 mls @ 200 mls/hr IV Q8H PRN PRN Reason: PAIN/FEVER > 101 Stop: 03/05/17 08:49 Last Admin: 03/04/17 11:32 Dose: 200 mls/hr Ibuprofen (Motrin) 600 mg PO TIDP PRN PRN Reason: PAIN/FEVER > 101 Last Admin: 03/03/17 21:44 Dose: 600 mg Losartan Potassium (Cozaar) 100 mg PO DAILY [facility] Last Admin: 03/04/17 10:03 Dose: 100 mg Magnesium Hydroxide (Milk Of Magnesia) 30 ml PO DAILYP PRN PRN Reason: Constipation Methocarbamol (Robaxin) 750 mg PO TIDP PRN PRN Reason: Muscle Spasm Last Admin: 03/04/17 08:11 Dose: 750 mg Morphine Sulfate (Morphine) 2 mg IV Q1HP PRN PRN Reason: PAIN LEVEL > 6 Last Admin: 03/03/17 20:16 Dose: 2 mg Naloxone HCl (Narcan) 0.1 mg IV Q2MIN PRN PRN Reason: Opiate Reversal Ondansetron HCl (Zofran) 4 mg IV Q6HP PRN PRN Reason: Nausea And Vomiting Sodium Chloride (Saline Flush) 10 ml IV Q8 [facility] Last Admin: 03/04/17 04:07 Dose: 10 ml Vancomycin HCl (Vancomycin Per Pharmacy) 1 order IV [facility] Medical - PN: A/P - Time Spent With Patient Total time spent is greater than 50% in coordination of care (as documented) at patient's floor/unit and/or counseling patient: 25 - 35 minutes (1) Septic discitis of lumbar region Status: Acute Current Visit: Yes (2) COPD (chronic obstructive pulmonary disease) Status: Chronic Current Visit: No (3) Hypertension, essential Status: Chronic Current Visit: No - Narrative A/P Narrative: #1. Infectious disease. Patient presents with severe back pain, significant leukocytosis, and spine MRI suggestive of discitis. -He was admitted for closer observation and IV antibiotics, empiric coverage with cefepime and vancomycin.. 1 bottle of blood cultures is growing gram- positive cocci, ID is pending. -Frequent neuro checks. -Orthopedic consult with Dr. Sol. If patient develops any neuro deficits, he will need to be transferred out. Cultures are pending. Leukocytosis is much improved today, and the patient appears more comfortable, so I think current treatment is effective. -Continue to follow CRP, clinical exam. -I added Robaxin today to help control his muscle spasms. Scheduled Tylenol and ibuprofen were ordered to help with pain and inflammation. He continues to use IV Dilaudid as needed. I will not add Toradol to this regimen, as he should not take 2 NSAIDs. #2. Cardiac. History of hypertension and questionable arrhythmia. -Monitor. -Continue Norvasc, losartan, HCTZ, cholesterol meds. 3. Pulmonary. History of COPD. Duo nebs plus as needed albuterol. 4. CODE STATUS: Full code. 5. DVT prophylaxis: Subcu heparin ordered, and patient also takes aspirin. Heparin was held last night, regarding his lumbar procedure, but resumed this morning. This was discussed with Dr. Peraza of radiology. Medical - PN: Qual - VTE Deep Vein Thrombosis/Pulmonary Embolism Present on Admission: No
[2017-03-04] MEDS ORDERED: METHOCARBAMOL 500 MG TABLET PO PRN (12:12)
[2017-03-04] MEDS ORDERED: ACETAMINOPHEN 325 MG TABLET PO SCH (12:15)
[2017-03-04] MEDS ORDERED: IBUPROFEN 600 MG TABLET PO SCH (12:15)
[2017-03-04] MEDS: LIDOCAINE PATCH TOPICAL SCH ×2 (12:35→21:34)
[2017-03-04] MEDS: AMITRIPTYLINE 10 MG TABLET PO SCH (21:18)
[2017-03-04] MEDS: DOCUSATE SODIUM 100 MG CAPSULE PO PRN (21:18)
[2017-03-04] MEDS: ATORVASTATIN 20 MG TABLET PO SCH (21:18)
[2017-03-05] MEDS: METHOCARBAMOL 750 MG TABLET PO PRN ×3 (00:26→20:05)
[2017-03-05] MEDS: HYDROmorphone 2 MG/ML SYRINGE IV PRN ×9 (00:37→22:53)
[2017-03-05] MEDS: HYDROcodone/APAP 5/325MG TABLET PO PRN ×3 (02:34→11:57)
[2017-03-05] MEDS: 0.9 % SODIUM CHLORIDE 10 ML SYRINGE IV SCH ×3 (04:46→21:21)
[2017-03-05 06:06] LABS: Basophils # (Auto) 0 K/mcL (0.0-0.3); Basophils % (Auto) 0.3 % (0.0-2.0); Eosinophils # (Auto) 0.3 K/mcL (0.0-0.7); Eosinophils % (Auto) 2.3 % (0.0-7.0); Granulocytes % (Auto) 77.7 % (38.0-78.0); Lymphocytes # (Auto) 1.4 K/mcL (1.5-4.8); Lymphocytes % (Auto) 10.9 % (15.5-49.0); Mean Cell Volume 92.5 fL (80.0-100.0); Mean Corpuscular HGB Conc 34.5 g/dL (31.0-36.0); Mean Corpuscular Hemoglobin 31.9 pg (26.0-34.0); Monocytes # (Auto) 1.1 K/mcL (0.1-0.9); Monocytes % (Auto) 8.8 % (1.0-12.0); Platelet Count 343 K/mcL (140-440); RBC 3.73 M/mcL (4.50-5.90); Red Cell Distribution Width 12.5 % (11.5-14.5)
[2017-03-05 06:20] LABS: ALT/SGPT 13 U/l (0-40); Albumin 3.4 gm/dL (3.2-5.2); Albumin/Globulin Ratio 1.1 (1.0-2.3); Alkaline Phosphatase 74 U/L (39-117); Bilirubin,Direct < 0.2 mg/dL (0.0-0.3); Blood Urea Nitrogen 17 mg/dl (8-23); C-Reactive Protein 17.1 mg/dl (0.0-0.8); Gamma Glutamyl Transpeptidase 55 U/L (8-61); Uric Acid 3.1 mg/dL (2.5-8.0)
--- NOTE | 2017-03-05 08:25 | Orthopedic Progress Note ---
Subjective Patient information: Note initiated : 03/05/17 at 8:23 am Service Date, if different from initiated Date: [] Patient: Cesar Nassar 71 y/o M admitted on 03/03/17 for discitis. Chief Complaint: [Low back pain] Patient's low back pain is better today compared to the last couple of days. Ice helps a fair amount in addition to the pain medications. He denies any neurologic symptoms including lower extremity paresthesias or weakness. Objective Vital signs: Vital Signs Temp Pulse Resp BP BP Pulse Ox 03/05/17 07:32 97.6 F 20 132/76 94 03/05/17 04:00 98.0 F 76 18 134/62 92 03/05/17 00:05 92 03/05/17 00:00 99.1 F H 89 18 128/76 89 L 03/04/17 20:00 99.1 F H 99 H 18 141/86 92 03/04/17 15:31 98.1 F 18 140/76 93 03/04/17 11:33 97.9 F 16 134/72 92 Intake and Output 03/04/17 03/05/17 03/05/17 21:59 05:59 13:59 Intake Total 800 / 800 500 / 500 Output Total 250 / 250 Balance 800 / 800 250 / 250 Intake: Oral 800 / 800 500 / 500 Output: Void Amount 250 / 250 Other: Meal Dinner Percent of Meal Consumed 70 Feeding Ability Assist with Tray Set Up # Voids 1 Weight 195 lb Intake & Output: Intake & Output 03/04/17 03/05/17 03/05/17 21:59 05:59 13:59 Intake Total 800 / 800 500 / 500 Output Total 250 / 250 Balance 800 / 800 250 / 250 Weight 195 lb Intake: Oral 800 / 800 500 / 500 Output: Void Amount 250 / 250 Other: Meal Dinner Percent of Meal Consumed 70 Feeding Ability Assist with Tray Set Up # Voids 1 Weight bearing status: as tolerated Range of motion: Flexion and extension is limited due to tenderness. Neurological exam IM: Yes alert, Yes oriented X3, Yes motor sensory intact, Yes neurovascular intact Extremities exam IM: Yes full ROM, Yes Foot pink and warm - Labs CBC & BMP: 03/05/17 04:12 03/05/17 04:12 Labs: 03/05/17 03/04/17 03/03/17 04:12 04:37 12:32 Hgb 11.9 L 12.4 L 14.5 Hct 34.5 L 35.8 L 42.8 Assessment and Plan (1) Discitis of lumbar region Continue broad-spectrum abx until culture results are back as they are still pending. Continue to manage pain with ice, [place], and Dilaudid. His pain is improved compared to yesterday. He will be set up for outpatient abx once he is discharged. Status: Acute
[2017-03-05] MEDS: CEFEPIME 2 GM VIAL IV SCH ×2 (08:50→21:20)
[2017-03-05] MEDS: HEPARIN 5,000 UNIT/ML VIAL SQ SCH ×2 (08:51→21:20)
[2017-03-05] MEDS: LOSARTAN 50 MG TABLET PO SCH (08:56)
[2017-03-05] MEDS: ASCORBIC ACID 500 MG TABLET PO SCH (08:56)
[2017-03-05] MEDS: FENOFIBRATE 43 MG CAPSULE PO SCH (08:56)
[2017-03-05] MEDS: HYDROCHLOROTHIAZIDE 25 MG TABLET PO SCH (08:56)
[2017-03-05] MEDS: amLODIPine 10 MG TABLET PO SCH (08:56)
[2017-03-05] MEDS: ASPIRIN 81 MG TAB.CHEW PO SCH (08:56)
[2017-03-05] MEDS: LIDOCAINE PATCH TOPICAL SCH ×2 (10:16→21:23)
[2017-03-05] MEDS: VANCOMYCIN 1,500 MG in 0.9 % SODIUM CHLORIDE 500 ML IV SCH (10:16)
[2017-03-05] MEDS: ACETAMINOPHEN 325 MG TABLET PO SCH ×2 (13:10→21:21)
--- NOTE | 2017-03-05 13:40 | Internal Med Progress Note ---
Medical - PN: Subj Patient information: Note initiated : 03/05/17 at 1:40 pm Service Date, if different from initiated Date: [] Patient: Cesar Nassar 71 y/o M admitted on 03/03/17 for osteomylitis. Chief Complaint: [] Interval history: March 03, 2017: History of present illness: Mr. Nassar is a 71 year old man with a history of COPD and hypertension, who has been struggling with low back pain for about 3 weeks. He has had increasing problems getting his pain control. Has been to see either his primary care provider or the emergency room 5 times now, with uncontrolled pain. He was finally sent back into the emergency room today, and underwent an MRI, which is suggestive of possible discitis. He and his report that he has had a fever as high as 101 for about 4 days now. He describes the pain in his low back is a feeling that everything is just tensing up and he just cannot get comfortable or relax. He cannot lay down in bed, so he has been sleeping in a recliner. He rates his pain currently as a 10 out of 10. During 1 of his recent ER visits he was diagnosed with possible pneumonia and treated with antibiotics. However subsequent reading of that chest film did not show pneumonia. The patient said he did have a slight cough at the time, but that is resolved. Otherwise, he denies headaches or dizziness new eye or ear symptoms sinus or teeth pain, sore throat, chest pain or palpitations. He does have chronic dyspnea on exertion due to COPD, which is unchanged. He denies abdominal pain, nausea or vomiting, diarrhea. He does note chronic constipation for which he takes a stool softener. He denies dysuria other than fairly frequent urination , which is chronic. He denies recent back trauma and he has had no known bacteremia or surgeries. I believe his last surgery was a right knee replacement in April of 2015. He was treated with a steroid taper on February 22, but he had had symptoms for quite some time at that point. March 04: Today, the patient continues to have occasional severe low back pain that is just to the right of his lower lumbar spine. In between these episodes he is quite comfortable. He says he definitely woke up feeling better this morning than he did yesterday. He otherwise denies fever or chills, headaches or dizziness, chest pain or shortness of breath, GI or symptoms. He is not really experiencing any lower extremity weakness or sensory changes. He does have occasional spasms of the right leg when his right low back is hurting. March 05: Today, the patient continues to have intermittent severe spasms and pain in the right lower back area. His nurse notes that he seems to not get much relief from anything. He is taking ibuprofen and Tylenol both 3 times daily, in addition to Robaxin plus oral oxycodone plus IV Dilaudid, and still asking for more meds. Today, he notes mild constipation, but says he was able to get up and walk with PT. However he had increased back spasms after doing that. Otherwise, he denies fever or chills, chest pain or shortness of breath, GI or symptoms. He denies any new leg weakness or bowel or bladder incontinence. - Constitutional Vitals: Vital Signs Temp Pulse Resp BP Pulse Ox 97.8 F 76 16 139/64 94 03/05/17 11:53 03/05/17 04:00 03/05/17 11:53 03/05/17 11:53 03/05/17 11:53 Period Temp Pulse Resp BP Sys/Cote Pulse Ox Last 24 Hr 97.6 F-99.1 F 76-99 16-20 128-141/62-86 89-94 Intake and Output 03/04/17 03/05/17 03/05/17 21:59 05:59 13:59 Intake Total 800 / 800 500 / 500 Output Total 250 / 250 Balance 800 / 800 250 / 250 Weight 195 lb Intake & Output: Intake & Output 03/04/17 03/05/17 03/05/17 21:59 05:59 13:59 Intake Total 800 / 800 500 / 500 Output Total 250 / 250 Balance 800 / 800 250 / 250 Weight 195 lb Intake: Oral 800 / 800 500 / 500 Output: Void Amount 250 / 250 Other: Meal Dinner Lunch Percent of Meal Consumed 70 100% Feeding Ability Assist with Tray Set Up Independent # Voids 1 On exam, he is sitting up in a chair, and is not currently in any acute distress. Neck is supple without lymphadenopathy or JVD. Cardiac exam shows regular rate and rhythm. Lungs have generally decreased breath sounds, but otherwise are clear to auscultation. Abdomen is soft and nontender. Examination of his back does not show any tenderness over his lumbar spine, but he continues to point the right lower paraspinal area as the site of tenderness and muscle spasm. Lower legs showed no cyanosis, clubbing, edema. Neurologic exam is otherwise grossly nonfocal. Medical - PN: Obj Da - Labs CBC & Chem 7: 03/05/17 04:12 03/05/17 04:12 Labs: Abnormal Lab Results 03/05/17 03/05/17 03/04/17 04:12 04:12 04:37 WBC 12.8 H RBC 3.73 L Hgb 11.9 L Hct 34.5 L Gran % Lymph % (Auto) 10.9 L Gran # 9.9 H Lymph # (Auto) 1.4 L [place] # (Auto) 1.1 H ESR Sodium 130 L Chloride 89 L 94 L Glucose 108 H C-Reactive Protein 17.1 H 7.2 H C-React Prot High Sens 03/04/17 03/03/17 03/03/17 04:37 13:27 12:32 WBC 18.2 H RBC 3.84 L Hgb 12.4 L Hct 35.8 L Gran % 91.2 H Lymph % (Auto) 5.0 L Gran # 16.6 H Lymph # (Auto) 0.9 L [place] # (Auto) ESR 57 H Sodium Chloride 94 L Glucose 126 H C-Reactive Protein C-React Prot High Sens 38.6 H March 05: Blood cultures and lumbar aspirate are all growing Staphylococcus aureus. Sensitivities are pending. March 04: CBC: White blood cell count is down to 9000, hemoglobin 12, hematocrit 35.8. CRP is 7.2 Blood cultures from March 03: Are growing gram-positive cocci. L1 aspirate: Gram stain shows rare polys, few red blood cells, no organisms. March 03: Spine MRI: IMPRESSION: Edema or inflammation in the bone marrow at L3 with altered signal in the nucleus pulposus at L2-3. The signal changes in the bone marrow could be Modic type I reactive changes secondary to disc degeneration. However, discitis and osteomyelitis is also the differential. Moderately severe spinal canal stenosis at L3-4 due to bulging discs and arthritis in the facets. Mild to moderate spinal canal stenosis at L4-5. CBC: White blood cell count is 18,000, hemoglobin 14, hematocrit 42, platelets 426,000. Differential shows 16,600 granulocytes, 900 lymphocytes Sed rate is high at 57 High-sensitivity CRP is elevated at 38 Lactic acid: Normal at 0.9 Pro-calcitonin: Normal at less than 0.05 Chemistry panel: Show sodium 133, potassium 4.7, chloride 94, bicarb 27, BUN 17 , creatinine 0.8 February 22: CT abdomen and pelvis: IMPRESSION: 1. No evidence of obstructing stone or hydronephrosis. No cause identified for bilateral flank pain 2. 1 mm nonobstructing stone inferior calyx the left kidney 3. Mild prostate enlargement 4. Degenerative central canal, lateral recess and IV foraminal stenosis at L2-3, L3-4 and L4-5. Could the patient's pain be radicular in origin? 5. Moderate emphysema - both lung bases 6. Mild pancreatic atrophy Chest x-ray: Shows mild bibasilar atelectasis. Urinalysis: Shows 4.0 urobilinogen, otherwise normal. February 21: Lumbar spine x-ray: IMPRESSION: 1. Mild chronic wedging of the T10-L1 vertebral bodies due to minimal compression fractures or chronic Scheuermann's disease 2. Degenerative change February 08, 2017: TSH is normal at 2.48 Hepatitis C antibody: Is nonreactive Meds: Medications Acetaminophen (Tylenol) 650 mg PO Q6HP PRN PRN Reason: PAIN/FEVER > 101 Last Admin: 03/03/17 21:45 Dose: 650 mg Acetaminophen (Tylenol) 650 mg PO Q8H LUC Last Admin: 03/05/17 13:10 Dose: 650 mg Hydrocodone Bitart/Acetaminophen (Blanco 5/325mg) 1 tab PO Q4HP PRN PRN Reason: PAIN LEVEL 3-6 Last Admin: 03/05/17 11:57 Dose: 1 tab Albuterol Sulfate (Ventolin) 2.5 mg NEB Q2HP PRN PRN Reason: Shortness Of Breath Albuterol/Ipratropium (Duoneb) 3 ml NEB TID PRN PRN Reason: Shortness Of Breath Or Wheezing Amitriptyline HCl (Elavil) 20 mg PO HS LUC Last Admin: 03/04/17 21:18 Dose: 20 mg Amlodipine Besylate (Norvasc) 10 mg PO QDAY [facility] Last Admin: 03/05/17 08:56 Dose: 10 mg Ascorbic Acid (Vitamin C) 500 mg PO DAILY [facility] Last Admin: 03/05/17 08:56 Dose: 500 mg Aspirin (Aspirin) 81 mg PO DAILY [facility] Last Admin: 03/05/17 08:56 Dose: 81 mg Atorvastatin Calcium (Lipitor) 20 mg PO HS [facility] Last Admin: 03/04/17 21:18 Dose: 20 mg Calcium Carbonate/Glycine (Tums) 1,000 mg CHEWED Q4HP PRN PRN Reason: Dyspepsia Cefepime HCl (Maxipime) 2 gm IV Q12H [facility] Last Admin: 03/05/17 08:50 Dose: 2 gm Docusate Sodium (Colace) 100 mg PO BID PRN PRN Reason: Constipation Last Admin: 03/04/17 21:18 Dose: 100 mg Fenofibrate (Antara) 129 mg PO DAILY [facility] Last Admin: 03/05/17 08:56 Dose: 129 mg Heparin Sodium (Porcine) (Heparin) 5,000 unit SQ Q12 [facility] Last Admin: 03/05/17 08:51 Dose: 5,000 unit Hydrochlorothiazide (Oretic) 25 mg PO DAILY [facility] Last Admin: 03/05/17 08:56 Dose: 25 mg Hydromorphone HCl (Dilaudid) 1 mg IV Q1HP PRN PRN Reason: PAIN LEVEL > 6 Last Admin: 03/05/17 11:57 Dose: 1 mg Vancomycin HCl 1,500 mg/ (Sodium Chloride) 500 mls @ 333.3 mls/hr IV Q24H [facility] Last Admin: 03/05/17 10:16 Dose: 333.3 mls/hr Ibuprofen (Motrin) 600 mg PO TIDP [facility] Last Admin: 03/04/17 23:41 Dose: 600 mg Lidocaine (Lidoderm) 1 patch TOPICAL DAILY@1000 [facility] Last Admin: 03/05/17 10:16 Dose: 1 patch Lidocaine (Lidoderm) 0 patch TOPICAL DAILY@2200 [facility] Last Admin: 03/04/17 21:34 Dose: 1 patch Losartan Potassium (Cozaar) 100 mg PO DAILY [facility] Last Admin: 03/05/17 08:56 Dose: 100 mg Magnesium Hydroxide (Milk Of Magnesia) 30 ml PO DAILYP PRN PRN Reason: Constipation Methocarbamol (Robaxin) 750 mg PO TIDP PRN PRN Reason: Muscle Spasm Last Admin: 03/05/17 08:56 Dose: 750 mg Morphine Sulfate (Morphine) 2 mg IV Q1HP PRN PRN Reason: PAIN LEVEL > 6 Last Admin: 03/03/17 20:16 Dose: 2 mg Naloxone HCl (Narcan) 0.1 mg IV Q2MIN PRN PRN Reason: Opiate Reversal Ondansetron HCl (Zofran) 4 mg IV Q6HP PRN PRN Reason: Nausea And Vomiting Last Admin: 03/04/17 17:45 Dose: 4 mg Sodium Chloride (Saline Flush) 10 ml IV Q8 [facility] Last Admin: 03/05/17 11:58 Dose: 10 ml Vancomycin HCl (Vancomycin Per Pharmacy) 1 order IV UD [facility] Medical - PN: A/P - Time Spent With Patient Total time spent is greater than 50% in coordination of care (as documented) at patient's floor/unit and/or counseling patient: 25 - 35 minutes (1) Septic discitis of lumbar region Status: Acute Current Visit: Yes (2) COPD (chronic obstructive pulmonary disease) Status: Chronic Current Visit: No (3) Hypertension, essential Status: Chronic Current Visit: No - Narrative A/P Narrative: #1. Infectious disease. Patient presents with severe back pain, significant leukocytosis, and spine MRI suggestive of discitis. -He was admitted for closer observation and IV antibiotics, empiric coverage with cefepime and vancomycin.. Blood and vertebral aspirates are both growing Staphylococcus aureus. He should be well covered for this with cefepime and vancomycin. -Frequent neuro checks. -Orthopedic consult with Dr. Sol. If patient develops any neuro deficits, he will need to be transferred out. -White blood cell count and CRP bumped up today, for uncertain reasons. He should be on adequate therapy, so continue current treatment. If white blood cell count is higher tomorrow, or pain continues at the same level, consider rescanning him. -Continue to follow CRP, clinical exam. -I added Robaxin to help control his muscle spasms. Scheduled Tylenol and ibuprofen were ordered to help with pain and inflammation. He continues to use IV Dilaudid as needed. #2. Cardiac. History of hypertension and questionable arrhythmia. -Monitor. -Continue Norvasc, losartan, HCTZ, cholesterol meds. 3. Pulmonary. History of COPD. Duo audras plus as needed albuterol. 4. CODE STATUS: Full code. 5. DVT prophylaxis: Subcu heparin ordered, and patient also takes aspirin. Medical - PN: Qual - VTE Deep Vein Thrombosis/Pulmonary Embolism Present on Admission: No
[2017-03-05] MEDS: oxyCODONE HCL 5 MG TABLET PO PRN ×2 (14:25→21:21)
[2017-03-05] MEDS: IBUPROFEN 600 MG TABLET PO SCH ×2 (14:25→21:20)
[2017-03-05] MEDS ORDERED: LORazepam 0.5 MG TABLET ONE (17:20)
[2017-03-05] MEDS: AMITRIPTYLINE 10 MG TABLET PO SCH (21:19)
[2017-03-05] MEDS: ATORVASTATIN 20 MG TABLET PO SCH (21:20)
[2017-03-05] MEDS: DOCUSATE SODIUM 100 MG CAPSULE PO PRN (22:53)
[2017-03-05] MEDS: LORazepam 0.5 MG TABLET PO PRN (22:53)
[2017-03-06] MEDS: ACETAMINOPHEN 325 MG TABLET PO SCH ×3 (04:35→20:47)
[2017-03-06] MEDS: HYDROmorphone 2 MG/ML SYRINGE IV PRN ×7 (04:35→21:09)
[2017-03-06] MEDS: 0.9 % SODIUM CHLORIDE 10 ML SYRINGE IV SCH ×3 (04:36→21:19)
[2017-03-06 06:05] LABS: Basophils # (Auto) 0.1 K/mcL (0.0-0.3); Basophils % (Auto) 0.6 % (0.0-2.0); Eosinophils # (Auto) 0.3 K/mcL (0.0-0.7); Eosinophils % (Auto) 3.3 % (0.0-7.0); Granulocytes % (Auto) 70.2 % (38.0-78.0); Lymphocytes # (Auto) 1.3 K/mcL (1.5-4.8); Lymphocytes % (Auto) 16.3 % (15.5-49.0); Mean Cell Volume 93.1 fL (80.0-100.0); Mean Corpuscular Hemoglobin 31.6 pg (26.0-34.0); Monocytes # (Auto) 0.8 K/mcL (0.1-0.9); Monocytes % (Auto) 9.6 % (1.0-12.0); Platelet Count 323 K/mcL (140-440); RBC 3.68 M/mcL (4.50-5.90); Red Cell Distribution Width 12.4 % (11.5-14.5)
[2017-03-06 06:22] LABS: ALT/SGPT 15 U/l (0-40); Albumin 3.4 gm/dL (3.2-5.2); Albumin/Globulin Ratio 1.2 (1.0-2.3); Alkaline Phosphatase 75 U/L (39-117); Bilirubin,Direct < 0.2 mg/dL (0.0-0.3); Blood Urea Nitrogen 13 mg/dl (8-23); Gamma Glutamyl Transpeptidase 55 U/L (8-61); Uric Acid 2.5 mg/dL (2.5-8.0)
[2017-03-06] MEDS: oxyCODONE HCL 5 MG TABLET PO PRN ×3 (07:21→18:49)
[2017-03-06] MEDS: METHOCARBAMOL 750 MG TABLET PO PRN ×2 (07:22→16:14)
[2017-03-06] MEDS: CEFEPIME 2 GM VIAL IV SCH ×2 (09:26→21:10)
[2017-03-06] MEDS: HYDROCHLOROTHIAZIDE 25 MG TABLET PO SCH (09:26)
[2017-03-06] MEDS: ASCORBIC ACID 500 MG TABLET PO SCH (09:26)
[2017-03-06] MEDS: FENOFIBRATE 43 MG CAPSULE PO SCH (09:27)
[2017-03-06] MEDS: LORazepam 0.5 MG TABLET PO PRN ×3 (09:27→21:10)
[2017-03-06] MEDS: ASPIRIN 81 MG TAB.CHEW PO SCH (09:27)
[2017-03-06] MEDS: LOSARTAN 50 MG TABLET PO SCH (09:27)
[2017-03-06] MEDS: HEPARIN 5,000 UNIT/ML VIAL SQ SCH ×2 (09:27→20:50)
[2017-03-06] MEDS: IBUPROFEN 600 MG TABLET PO SCH ×3 (09:27→20:47)
[2017-03-06] MEDS: LIDOCAINE PATCH TOPICAL SCH ×2 (09:28→22:53)
[2017-03-06] MEDS: amLODIPine 10 MG TABLET PO SCH (10:25)
[2017-03-06] MEDS: VANCOMYCIN 1,500 MG in 0.9 % SODIUM CHLORIDE 500 ML IV SCH ×2 (10:49→21:10)
--- NOTE | 2017-03-06 12:12 | Internal Med Progress Note ---
Medical - PN: Subj Patient information: Note initiated : 03/06/17 at 12:12 pm Service Date, if different from initiated Date: [] Patient: Cesar Nassar 71 y/o M admitted on 03/03/17 for Osteomylitis/Septic Discitis of Lumbar Region. Chief Complaint: [] Interval history: March 03, 2017: History of present illness: Mr. Nassar is a 71 year old man with a history of COPD and hypertension, who has been struggling with low back pain for about 3 weeks. He has had increasing problems getting his pain control. Has been to see either his primary care provider or the emergency room 5 times now, with uncontrolled pain. He was finally sent back into the emergency room today, and underwent an MRI, which is suggestive of possible discitis. He and his report that he has had a fever as high as 101 for about 4 days now. He describes the pain in his low back is a feeling that everything is just tensing up and he just cannot get comfortable or relax. He cannot lay down in bed, so he has been sleeping in a recliner. He rates his pain currently as a 10 out of 10. During 1 of his recent ER visits he was diagnosed with possible pneumonia and treated with antibiotics. However subsequent reading of that chest film did not show pneumonia. The patient said he did have a slight cough at the time, but that is resolved. Otherwise, he denies headaches or dizziness new eye or ear symptoms sinus or teeth pain, sore throat, chest pain or palpitations. He does have chronic dyspnea on exertion due to COPD, which is unchanged. He denies abdominal pain, nausea or vomiting, diarrhea. He does note chronic constipation for which he takes a stool softener. He denies dysuria other than fairly frequent urination , which is chronic. He denies recent back trauma and he has had no known bacteremia or surgeries. I believe his last surgery was a right knee replacement in April of 2015. He was treated with a steroid taper on February 22, but he had had symptoms for quite some time at that point. March 04: Today, the patient continues to have occasional severe low back pain that is just to the right of his lower lumbar spine. In between these episodes he is quite comfortable. He says he definitely woke up feeling better this morning than he did yesterday. He otherwise denies fever or chills, headaches or dizziness, chest pain or shortness of breath, GI or symptoms. He is not really experiencing any lower extremity weakness or sensory changes. He does have occasional spasms of the right leg when his right low back is hurting. March 05: Today, the patient continues to have intermittent severe spasms and pain in the right lower back area. His nurse notes that he seems to not get much relief from anything. He is taking ibuprofen and Tylenol both 3 times daily, in addition to Robaxin plus oral oxycodone plus IV Dilaudid, and still asking for more meds. Today, he notes mild constipation, but says he was able to get up and walk with PT. However he had increased back spasms after doing that. Otherwise, he denies fever or chills, chest pain or shortness of breath, GI or symptoms. He denies any new leg weakness or bowel or bladder incontinence. March 06: -The patient continues to have fairly severe spasms and pain. He continues on numerous pain medications, as noted above, but says she still is having episodes of severe pain. He is able to walk and to shower, but then will have what he describes as a feeling of something completely knotting up and being almost too much to bear. - He otherwise denies fever or chills, and is not having chest pain or trouble breathing GI or symptoms. He has not had bowel or bladder incontinence. He has not noticed increasing leg weakness or numbness. -I spoke with Dr. Herrera of orthopedics, but he did not want to comment on a patient with a spinal issue. I tried to contact Dr. Sol, but he has not returned my call, and my understanding is he is leaving town. So I touch base with Dr. Mays of radiology. He suggested an MRI, to get a better look at this area and be sure we are not missing some other cause for the pain. -Otherwise, the patient's white blood cell count is back to normal. Blood cultures and vertebral aspirate cultures are both growing staph aureus, which is sensitive to most antibiotics. - Constitutional Vitals: Vital Signs Temp Pulse Resp BP Pulse Ox 98 F 80 18 133/65 93 03/06/17 11:33 03/06/17 04:00 03/06/17 11:33 03/06/17 11:33 03/06/17 11:33 Period Temp Pulse Resp BP Sys/Cote Pulse Ox Last 24 Hr 97.6 F-98.9 F 77-92 16-18 105-134/65-79 89-96 Intake and Output 03/05/17 03/06/17 03/06/17 21:59 05:59 13:59 Intake Total 400 / 400 375 / 375 400 / 400 Output Total 250 / 250 Balance 400 / 400 125 / 125 400 / 400 Weight 196 lb 8 oz Intake & Output: Intake & Output 03/05/17 03/06/17 03/06/17 21:59 05:59 13:59 Intake Total 400 / 400 375 / 375 400 / 400 Output Total 250 / 250 Balance 400 / 400 125 / 125 400 / 400 Weight 196 lb 8 oz Intake: Oral 400 / 400 375 / 375 400 / 400 Output: Void Amount 250 / 250 Other: Meal Breakfast Percent of Meal Consumed 100% Feeding Ability Independent # Voids 1 1 On exam, he is sitting lying in bed, and is not currently in any acute distress. Neck is supple without lymphadenopathy or JVD. Cardiac exam shows regular rate and rhythm. Lungs have generally decreased breath sounds, but otherwise are clear to auscultation. Abdomen is soft and nontender. Examination of his back does not show any tenderness over his lumbar spine, but he continues to point the right lower paraspinal area as the site of tenderness and muscle spasm. Lower legs showed no cyanosis, clubbing, edema. Neurologic exam is otherwise grossly nonfocal. Medical - PN: Obj Da - Labs CBC & Chem 7: 03/06/17 04:31 03/06/17 04:31 Labs: Abnormal Lab Results 03/06/17 03/06/17 03/05/17 04:31 04:31 04:12 WBC RBC 3.68 L Hgb 11.6 L Hct 34.2 L Gran % Lymph % (Auto) Gran # Lymph # (Auto) 1.3 L [place] # (Auto) ESR Sodium 130 L Chloride 93 L 89 L Glucose 108 H C-Reactive Protein 18.0 H 17.1 H C-React Prot High Sens 03/05/17 03/04/17 03/04/17 04:12 04:37 04:37 WBC 12.8 H RBC 3.73 L 3.84 L Hgb 11.9 L 12.4 L Hct 34.5 L 35.8 L Gran % Lymph % (Auto) 10.9 L Gran # 9.9 H Lymph # (Auto) 1.4 L [place] # (Auto) 1.1 H ESR Sodium Chloride 94 L Glucose C-Reactive Protein 7.2 H C-React Prot High Sens 03/03/17 03/03/17 13:27 12:32 WBC 18.2 H RBC Hgb Hct Gran % 91.2 H Lymph % (Auto) 5.0 L Gran # 16.6 H Lymph # (Auto) 0.9 L [place] # (Auto) ESR 57 H Sodium Chloride 94 L Glucose 126 H C-Reactive Protein C-React Prot High Sens 38.6 H March 05: Blood cultures and lumbar aspirate are all growing Staphylococcus aureus. Sensitivities at both sites show resistance to clindamycin and erythromycin and tetracycline, but otherwise sensitive to amoxicillin, cefazolin, Levaquin, meropenem, oxacillin, Bactrim, Zosyn, vancomycin March 04: CBC: White blood cell count is down to 9000, hemoglobin 12, hematocrit 35.8. CRP is 7.2 Blood cultures from March 03: Are growing gram-positive cocci. L1 aspirate: Gram stain shows rare polys, few red blood cells, no organisms. March 03: Spine MRI: IMPRESSION: Edema or inflammation in the bone marrow at L3 with altered signal in the nucleus pulposus at L2-3. The signal changes in the bone marrow could be Modic type I reactive changes secondary to disc degeneration. However, discitis and osteomyelitis is also the differential. Moderately severe spinal canal stenosis at L3-4 due to bulging discs and arthritis in the facets. Mild to moderate spinal canal stenosis at L4-5. CBC: White blood cell count is 18,000, hemoglobin 14, hematocrit 42, platelets 426,000. Differential shows 16,600 granulocytes, 900 lymphocytes Sed rate is high at 57 High-sensitivity CRP is elevated at 38 Lactic acid: Normal at 0.9 Pro-calcitonin: Normal at less than 0.05 Chemistry panel: Show sodium 133, potassium 4.7, chloride 94, bicarb 27, BUN 17 , creatinine 0.8 February 22: CT abdomen and pelvis: IMPRESSION: 1. No evidence of obstructing stone or hydronephrosis. No cause identified for bilateral flank pain 2. 1 mm nonobstructing stone inferior calyx the left kidney 3. Mild prostate enlargement 4. Degenerative central canal, lateral recess and IV foraminal stenosis at L2-3, L3-4 and L4-5. Could the patient's pain be radicular in origin? 5. Moderate emphysema - both lung bases 6. Mild pancreatic atrophy Chest x-ray: Shows mild bibasilar atelectasis. Urinalysis: Shows 4.0 urobilinogen, otherwise normal. February 21: Lumbar spine x-ray: IMPRESSION: 1. Mild chronic wedging of the T10-L1 vertebral bodies due to minimal compression fractures or chronic Scheuermann's disease 2. Degenerative change February 08, 2017: TSH is normal at 2.48 Hepatitis C antibody: Is nonreactive Meds: Medications Acetaminophen (Tylenol) 650 mg PO Q6HP PRN PRN Reason: PAIN/FEVER > 101 Last Admin: 03/03/17 21:45 Dose: 650 mg Acetaminophen (Tylenol) 650 mg PO Q8H [facility] Last Admin: 03/06/17 04:35 Dose: 650 mg Albuterol Sulfate (Ventolin) 2.5 mg NEB Q2HP PRN PRN Reason: Shortness Of Breath Albuterol/Ipratropium (Duoneb) 3 ml NEB TID PRN PRN Reason: Shortness Of Breath Or Wheezing Amitriptyline HCl (Elavil) 20 mg PO HS [facility] Last Admin: 03/05/17 21:19 Dose: 20 mg Amlodipine Besylate (Norvasc) 10 mg PO QDAY [facility] Last Admin: 03/06/17 10:25 Dose: 10 mg Ascorbic Acid (Vitamin C) 500 mg PO DAILY [facility] Last Admin: 03/06/17 09:26 Dose: 500 mg Aspirin (Aspirin) 81 mg PO DAILY [facility] Last Admin: 03/06/17 09:27 Dose: 81 mg Atorvastatin Calcium (Lipitor) 20 mg PO HS [facility] Last Admin: 03/05/17 21:20 Dose: 20 mg Calcium Carbonate/Glycine (Tums) 1,000 mg CHEWED Q4HP PRN PRN Reason: Dyspepsia Cefepime HCl (Maxipime) 2 gm IV Q12H [facility] Last Admin: 03/06/17 09:26 Dose: 2 gm Docusate Sodium (Colace) 100 mg PO BID PRN PRN Reason: Constipation Last Admin: 03/05/17 22:53 Dose: 100 mg Fenofibrate (Antara) 129 mg PO DAILY [facility] Last Admin: 03/06/17 09:27 Dose: 129 mg Heparin Sodium (Porcine) (Heparin) 5,000 unit SQ Q12 [facility] Last Admin: 03/06/17 09:27 Dose: 5,000 unit Hydrochlorothiazide (Oretic) 25 mg PO DAILY [facility] Last Admin: 03/06/17 09:26 Dose: 25 mg Hydromorphone HCl (Dilaudid) 1 mg IV Q1HP PRN PRN Reason: PAIN LEVEL > 6 Last Admin: 03/06/17 09:20 Dose: 1 mg Vancomycin HCl 1,500 mg/ (Sodium Chloride) 500 mls @ 333.3 mls/hr IV Q12H [facility] Last Admin: 03/06/17 10:49 Dose: 333.3 mls/hr Ibuprofen (Motrin) 600 mg PO TID [facility] Last Admin: 03/06/17 09:27 Dose: 600 mg Lidocaine (Lidoderm) 1 patch TOPICAL DAILY@1000 [facility] Last Admin: 03/06/17 09:28 Dose: 1 patch Lidocaine (Lidoderm) 0 patch TOPICAL DAILY@2200 [facility] Last Admin: 03/05/17 21:23 Dose: 1 patch Lorazepam (Ativan) 0.5 mg PO Q4HP PRN PRN Reason: ANXIETY/SEDATION Last Admin: 03/06/17 09:27 Dose: 0.5 mg Losartan Potassium (Cozaar) 100 mg PO DAILY [facility] Last Admin: 03/06/17 09:27 Dose: 100 mg Magnesium Hydroxide (Milk Of Magnesia) 30 ml PO DAILYP PRN PRN Reason: Constipation Methocarbamol (Robaxin) 750 mg PO TIDP PRN PRN Reason: Muscle Spasm Last Admin: 03/06/17 07:22 Dose: 750 mg Naloxone HCl (Narcan) 0.1 mg IV Q2MIN PRN PRN Reason: Opiate Reversal Ondansetron HCl (Zofran) 4 mg IV Q6HP PRN PRN Reason: Nausea And Vomiting Last Admin: 03/04/17 17:45 Dose: 4 mg Oxycodone HCl (Roxicodone) 5 mg PO Q4-6HP PRN PRN Reason: PAIN LEVEL 3-6 Last Admin: 03/06/17 07:21 Dose: 5 mg Sodium Chloride (Saline Flush) 10 ml IV Q8 [facility] Last Admin: 03/06/17 04:36 Dose: 10 ml Vancomycin HCl (Vancomycin Per Pharmacy) 1 order IV UD [facility] Medical - PN: A/P - Time Spent With Patient Total time spent is greater than 50% in coordination of care (as documented) at patient's floor/unit and/or counseling patient: 25 - 35 minutes (1) Septic discitis of lumbar region Status: Acute Current Visit: Yes (2) COPD (chronic obstructive pulmonary disease) Status: Chronic Current Visit: No (3) Hypertension, essential Status: Chronic Current Visit: No - Narrative A/P Narrative: #1. Infectious disease. Patient presents with severe back pain, significant leukocytosis, and spine MRI suggestive of discitis. --He was admitted for closer observation and IV antibiotics, empiric coverage with cefepime and vancomycin.. Blood and vertebral aspirates are both growing Staphylococcus aureus. He should be well covered for this with cefepime and vancomycin. -He was initially seen by Dr. Sol of orthopedics. He is on appropriate antibiotic therapy, but continues to have severe spasms of pain, of uncertain origin. I have not been able to reach Dr. Sol or an orthopedic doctor who would be interested in reviewing his spine issues at this time. I did review his case with Dr. Mays, and he recommended follow-up MRI of the spine and flank area, to see if something else is going on there. -If this is unrevealing, we may need to track down a neurosurgeon to give us more feedback. - If patient develops any neuro deficits, he will need to be transferred out. If the patient improves, and pain can be managed with oral medications, we would like to set him up for home antibiotics. I would imagine he would need at least 6 weeks of IV antibiotics, but he may need to follow-up with infectious disease to confirm that. -Continue to follow CRP, clinical exam. -I added Robaxin to help control his muscle spasms. Scheduled Tylenol and ibuprofen were ordered to help with pain and inflammation. He continues to use oral oxycodone and IV Dilaudid as needed. Single Lidoderm patch, and ice packs alternating with hot packs. #2. Cardiac. History of hypertension and questionable arrhythmia. -Blood pressure is well controlled. -Continue Norvasc, losartan, HCTZ, cholesterol meds. 3. Pulmonary. History of COPD. Clinically stable. Duo nebs plus as needed albuterol. 4. CODE STATUS: Full code. 5. DVT prophylaxis: Subcu heparin ordered, and patient also takes aspirin. Continue physical therapy and occupational therapy, with the goal of returning to baseline. Addendum: Dr. Sol did call back. He said quite a bit of pain and spasm is expected in this situation. He suggested I ask physical therapy to obtain an LSO brace for the patient, as this may offer some additional relief. Otherwise, once the patient's pain is reasonably well controlled, he can be discharged home on IV antibiotics, which she should stay on for at least 6 weeks. Medical - PN: Qual - VTE Deep Vein Thrombosis/Pulmonary Embolism Present on Admission: No
[2017-03-06] MEDS: DOCUSATE SODIUM 100 MG CAPSULE PO PRN (16:13)
--- NOTE | 2017-03-06 18:29 | Magnetic Resonance Report ---
CLINICAL INFORMATION: Follow-up L2-3 discitis COMPARISON: Lumbar MRI from three days prior 03/03/2017. TECHNIQUE: Sagittal T1 FLAIR, STIR, fast spin echo T2, axial T2 weighted images were acquired. FINDINGS: Lumbar spine remains anatomically aligned. The signal within the L2-3 disc has increased on T2 and STIR compatible with modest progression in no discitis. There is now diffuse inflammation throughout most of the L3 vertebral body compatible with worsening associated osteomyelitis.. On today's examination, there is inflammatory extension into the paraspinous soft tissues resulting in a 19 mm abscess adjacent to the left L3 vertebral body within the psoas. There is also a 16 abscess adjacent to the anterior lateral right L3 vertebral body. Conus medullaris ends at T12 homogeneous signal. Cauda equina roots are normal. At L1-2, there is mild disc protrusion with left-sided asymmetry results in mild left IV foraminal narrowing is unchanged. At L2-3, the inflamed disc show only mild posterior protrusion which is unchanged At L3-4, mild broad disc protrusion, ligament flavum enlargement and facet arthropathy result in severe central canal and mild bilateral lateral recess IV foraminal narrowing. This is unchanged At L4-5 , moderate broad disc protrusion with right-sided asymmetry and marked facet arthropathy result in severe central canal and moderate right lateral recess and right IV foraminal narrowing. This is unchanged At L5-S1, mild broad disc protrusion with right-sided asymmetry results in mild right IV foraminal narrowing slightly impinging the exiting right L5 nerve root. IMPRESSION: 1. Moderate L2-3 discitis and L3 osteomyelitis has worsened modestly since the exam three days ago. In addition, there is now inflammatory extension into the peripheral paravertebral soft tissues with two small abscesses adjacent to the L3 vertebral body 2. Multilevel degenerative change is stable Interpreted and Authenticated by: Arnold Mays 03/06/17
[2017-03-06] MEDS: ATORVASTATIN 20 MG TABLET PO SCH (20:48)
[2017-03-06] MEDS: AMITRIPTYLINE 10 MG TABLET PO SCH (20:48)
[2017-03-07] MEDS: oxyCODONE HCL 5 MG TABLET PO PRN ×3 (04:33→12:41)
[2017-03-07] MEDS: METHOCARBAMOL 750 MG TABLET PO PRN (04:34)
[2017-03-07] MEDS: ACETAMINOPHEN 325 MG TABLET PO SCH ×2 (04:36→12:42)
[2017-03-07 05:55] LABS: Basophils # (Auto) 0 K/mcL (0.0-0.3); Basophils % (Auto) 0.4 % (0.0-2.0); Eosinophils # (Auto) 0.2 K/mcL (0.0-0.7); Eosinophils % (Auto) 2.4 % (0.0-7.0); Lymphocytes # (Auto) 1.3 K/mcL (1.5-4.8); Lymphocytes % (Auto) 15.8 % (15.5-49.0); Mean Cell Volume 93.3 fL (80.0-100.0); Mean Corpuscular HGB Conc 33.9 g/dL (31.0-36.0); Mean Corpuscular Hemoglobin 31.6 pg (26.0-34.0); Monocytes # (Auto) 0.8 K/mcL (0.1-0.9); Monocytes % (Auto) 9.4 % (1.0-12.0); Platelet Count 339 K/mcL (140-440); RBC 3.75 M/mcL (4.50-5.90); Red Cell Distribution Width 12.6 % (11.5-14.5)
[2017-03-07] MEDS: 0.9 % SODIUM CHLORIDE 10 ML SYRINGE IV SCH ×5 (06:01→23:33)
[2017-03-07] MEDS: HYDROmorphone 2 MG/ML SYRINGE IV PRN ×5 (06:01→23:32)
[2017-03-07] MEDS ORDERED: METHOCARBAMOL 1,000 MG/10 ML VIAL IV PRN (06:52)
[2017-03-07 06:58] LABS: ALT/SGPT 17 U/l (0-40); Albumin 3.6 gm/dL (3.2-5.2); Albumin/Globulin Ratio 1.1 (1.0-2.3); Alkaline Phosphatase 79 U/L (39-117); Bilirubin,Direct < 0.2 mg/dL (0.0-0.3); Blood Urea Nitrogen 11 mg/dl (8-23); C-Reactive Protein 18.1 mg/dl (0.0-0.8); Gamma Glutamyl Transpeptidase 62 U/L (8-61); Magnesium 2.1 mg/dL (1.6-2.5); Uric Acid 2.6 mg/dL (2.5-8.0)
[2017-03-07] MEDS: ceFAZolin 1 GM VIAL IV SCH ×3 (07:40→23:32)
[2017-03-07] MEDS: ASPIRIN 81 MG TAB.CHEW PO SCH (08:22)
[2017-03-07] MEDS: LOSARTAN 50 MG TABLET PO SCH (08:22)
[2017-03-07] MEDS: ASCORBIC ACID 500 MG TABLET PO SCH (08:22)
[2017-03-07] MEDS: HYDROCHLOROTHIAZIDE 25 MG TABLET PO SCH (08:22)
[2017-03-07] MEDS: IBUPROFEN 600 MG TABLET PO SCH (08:22)
[2017-03-07] MEDS: amLODIPine 10 MG TABLET PO SCH (08:22)
[2017-03-07] MEDS: HEPARIN 5,000 UNIT/ML VIAL SQ SCH ×2 (08:22→21:25)
[2017-03-07] MEDS: FENOFIBRATE 43 MG CAPSULE PO SCH (08:22)
[2017-03-07] MEDS: LIDOCAINE PATCH TOPICAL SCH ×2 (10:02→21:26)
--- NOTE | 2017-03-07 10:29 | Cat Scan Report ---
History: New onset severe back pain with infiltration of bone marrow at L3 and the L2-3 intervertebral disc, suspicious for infection Technique: The procedure and risks were explained including nerve injury. Patient since. He was given Versed 1 mg and fentanyl 100 mcg intravenously. Vital signs were monitored and remained stable. With the patient lying prone, CT images were acquired. The L2-3 disc space was localized. The skin over the right flank was prepped with ChloraPrep then anesthetized with 1% lidocaine. An 18-gauge needle was inserted into the L2-3 disc space. Very small droplet of bloody fluid was removed. I was unable to aspirate any puss. Using a coaxial 17/18 gauge biopsy needle, a core biopsy sample was obtained of the nucleus pulposus. Specimens were sent for microbiology. He tolerated the procedure well without complication. Impression: Successful core biopsy of the L2-3 disc for culture and sensitivity Interpreted and Authenticated by: Mitch Peraza 03/03/17
[2017-03-07] MEDS: KETOROLAC 15 MG/ML VIAL IV SCH ×3 (12:02→23:33)
[2017-03-07] MEDS: MAGNESIUM HYDROXIDE 30 ML ORAL.SUSP PO PRN (12:41)
[2017-03-07] MEDS: METHOCARBAMOL 1,000 MG/10 ML VIAL IV SCH ×2 (15:42→21:24)
--- NOTE | 2017-03-07 18:03 | Internal Med Progress Note ---
Medical - PN: Subj Patient information: Note initiated : 03/07/17 at 6:01 pm Service Date, if different from initiated Date: [] Patient: Cesar Nassar 71 y/o M admitted on 03/03/17 for Osteomylitis/Septic Discitis of Lumbar Region. Chief Complaint: [] Interval history: March 03, 2017: History of present illness: Mr. Nassar is a 71 year old man with a history of COPD and hypertension, who has been struggling with low back pain for about 3 weeks. He has had increasing problems getting his pain control. Has been to see either his primary care provider or the emergency room 5 times now, with uncontrolled pain. He was finally sent back into the emergency room today, and underwent an MRI, which is suggestive of possible discitis. He and his report that he has had a fever as high as 101 for about 4 days now. He describes the pain in his low back is a feeling that everything is just tensing up and he just cannot get comfortable or relax. He cannot lay down in bed, so he has been sleeping in a recliner. He rates his pain currently as a 10 out of 10. During 1 of his recent ER visits he was diagnosed with possible pneumonia and treated with antibiotics. However subsequent reading of that chest film did not show pneumonia. The patient said he did have a slight cough at the time, but that is resolved. Otherwise, he denies headaches or dizziness new eye or ear symptoms sinus or teeth pain, sore throat, chest pain or palpitations. He does have chronic dyspnea on exertion due to COPD, which is unchanged. He denies abdominal pain, nausea or vomiting, diarrhea. He does note chronic constipation for which he takes a stool softener. He denies dysuria other than fairly frequent urination , which is chronic. He denies recent back trauma and he has had no known bacteremia or surgeries. I believe his last surgery was a right knee replacement in April of 2015. He was treated with a steroid taper on February 22, but he had had symptoms for quite some time at that point. March 04: Today, the patient continues to have occasional severe low back pain that is just to the right of his lower lumbar spine. In between these episodes he is quite comfortable. He says he definitely woke up feeling better this morning than he did yesterday. He otherwise denies fever or chills, headaches or dizziness, chest pain or shortness of breath, GI or symptoms. He is not really experiencing any lower extremity weakness or sensory changes. He does have occasional spasms of the right leg when his right low back is hurting. March 05: Today, the patient continues to have intermittent severe spasms and pain in the right lower back area. His nurse notes that he seems to not get much relief from anything. He is taking ibuprofen and Tylenol both 3 times daily, in addition to Robaxin plus oral oxycodone plus IV Dilaudid, and still asking for more meds. Today, he notes mild constipation, but says he was able to get up and walk with PT. However he had increased back spasms after doing that. Otherwise, he denies fever or chills, chest pain or shortness of breath, GI or symptoms. He denies any new leg weakness or bowel or bladder incontinence. March 06: -The patient continues to have fairly severe spasms and pain. He continues on numerous pain medications, as noted above, but says she still is having episodes of severe pain. He is able to walk and to shower, but then will have what he describes as a feeling of something completely knotting up and being almost too much to bear. - He otherwise denies fever or chills, and is not having chest pain or trouble breathing GI or symptoms. He has not had bowel or bladder incontinence. He has not noticed increasing leg weakness or numbness. -I spoke with Dr. Herrera of orthopedics, but he did not want to comment on a patient with a spinal issue. I tried to contact Dr. Sol, but he has not returned my call, and my understanding is he is leaving town. So I touch base with Dr. Mays of radiology. He suggested an MRI, to get a better look at this area and be sure we are not missing some other cause for the pain. -Otherwise, the patient's white blood cell count is back to normal. Blood cultures and vertebral aspirate cultures are both growing staph aureus, which is sensitive to most antibiotics. March 07 Patient seen examined, still has severe back pain, repeat MRI reviewed, no indicatino for surgery as per Spine surgery, no neurological deficit Blood cx and aspirate is mssa, d/c vanco and cefepime, start on anceph 2gms q8, will need total of 6 weeks get echo ,repeat blood cultures, hold picc till neg blood cultures xfer to higher center if neurological symptoms. Pertinent ROS: Denies headache, dizziness Denies chest pain, palpitations Denies cough or shortness of breath Denies abdominal pain, nausea or vomiting. - Constitutional Vitals: Vital Signs Temp Pulse Resp BP Pulse Ox 97.7 F 83 12 119/84 93 03/07/17 16:00 03/07/17 07:55 03/07/17 16:00 03/07/17 16:00 03/07/17 16:00 Period Temp Pulse Resp BP Sys/Cote Pulse Ox Last 24 Hr 97.6 F-99.4 F 75-93 - 117-142/68-88 91-96 Intake and Output 03/07/17 03/07/17 03/07/17 05:59 13:59 21:59 Intake Total 375 / 375 360 / 360 1040 / 1040 Output Total 1300 / 1300 500 / 500 Balance -925 / -925 -140 / -140 1040 / 1040 Intake & Output: Intake & Output 03/07/17 03/07/17 03/07/17 05:59 13:59 21:59 Intake Total 375 / 375 360 / 360 1040 / 1040 Output Total 1300 / 1300 500 / 500 Balance -925 / -925 -140 / -140 1040 / 1040 Intake: Oral 375 / 375 360 / 360 1040 / 1040 Output: Void Amount 1300 / 1300 500 / 500 Other: Meal Lunch Dinner Percent of Meal Consumed 75% 100% Feeding Ability Independent Independent # Voids 1 Exam: Constitutional; Afebrile, cooperative, alert, not in distress. Eyes- No icterus, , No periorbital swelling Ears- Ext ear normal, hearing normal to conversation. Neck- Midline trachea, supple Respiratory system: Air Entry equal on both sides, No crackles or wheezing, no rhonchi. CVS- Rate rhythm regular, S1,S2 heard, no gallop, no rub. Abdomen- Soft nontender abdomen, no organomegaly, no tenderness, no guarding or rigidity, [employer]- AOOx3, moving all extremities, no gross focal deficit noted. spine: tenderness present on the left lower region. Medical - PN: Obj Da - Labs CBC & Chem 7: 03/07/17 04:10 03/07/17 04:10 Labs: Abnormal Lab Results 03/07/17 03/07/17 03/06/17 04:10 04:10 04:31 WBC RBC 3.75 L Hgb 11.9 L Hct 35.0 L Lymph % (Auto) Gran # Lymph # (Auto) 1.3 L Davidson # (Auto) Sodium Chloride 93 L Glucose GGT 62 H C-Reactive Protein 18.1 H 18.0 H 03/06/17 03/05/17 03/05/17 04:31 04:12 04:12 WBC 12.8 H RBC 3.68 L 3.73 L Hgb 11.6 L 11.9 L Hct 34.2 L 34.5 L Lymph % (Auto) 10.9 L Gran # 9.9 H Lymph # (Auto) 1.3 L 1.4 L Davidson # (Auto) 1.1 H Sodium 130 L Chloride 89 L Glucose 108 H GGT C-Reactive Protein 17.1 H Meds: Medications Albuterol Sulfate (Ventolin) 2.5 mg NEB Q2HP PRN PRN Reason: Shortness Of Breath Albuterol/Ipratropium (Duoneb) 3 ml NEB TID PRN PRN Reason: Shortness Of Breath Or Wheezing Amitriptyline HCl (Elavil) 20 mg PO HS [facility] Last Admin: 03/06/17 20:48 Dose: 20 mg Amlodipine Besylate (Norvasc) 10 mg PO QDAY [facility] Last Admin: 03/07/17 08:22 Dose: 10 mg Ascorbic Acid (Vitamin C) 500 mg PO DAILY [facility] Last Admin: 03/07/17 08:22 Dose: 500 mg Aspirin (Aspirin) 81 mg PO DAILY [facility] Last Admin: 03/07/17 08:22 Dose: 81 mg Atorvastatin Calcium (Lipitor) 20 mg PO HS [facility] Last Admin: 03/06/17 20:48 Dose: 20 mg Calcium Carbonate/Glycine (Tums) 1,000 mg CHEWED Q4HP PRN PRN Reason: Dyspepsia Cefazolin Sodium (Ancef) 2 gm IV Q8H [facility] Last Admin: 03/07/17 15:43 Dose: 2 gm Docusate Sodium (Colace) 100 mg PO BID PRN PRN Reason: Constipation Last Admin: 03/06/17 16:13 Dose: 100 mg Fenofibrate (Antara) 129 mg PO DAILY [facility] Last Admin: 03/07/17 08:22 Dose: 129 mg Heparin Sodium (Porcine) (Heparin) 5,000 unit SQ Q12 [facility] Last Admin: 03/07/17 08:22 Dose: 5,000 unit Hydrochlorothiazide (Oretic) 25 mg PO DAILY [facility] Last Admin: 03/07/17 08:22 Dose: 25 mg Hydromorphone HCl (Dilaudid) 2 mg IV Q2HP PRN PRN Reason: PAIN LEVEL > 6 Ketorolac Tromethamine (Toradol) 15 mg IV Q6 [facility] Stop: 03/09/17 11:59 Last Admin: 03/07/17 17:37 Dose: 15 mg Lidocaine (Lidoderm) 1 patch TOPICAL DAILY@1000 [facility] Last Admin: 03/07/17 10:02 Dose: 1 patch Lidocaine (Lidoderm) 0 patch TOPICAL DAILY@2200 [facility] Last Admin: 03/06/17 22:53 Dose: 1 patch Lorazepam (Ativan) 0.5 mg PO Q4HP PRN PRN Reason: ANXIETY/SEDATION Last Admin: 03/06/17 21:10 Dose: 0.5 mg Losartan Potassium (Cozaar) 100 mg PO DAILY [facility] Last Admin: 03/07/17 08:22 Dose: 100 mg Magnesium Hydroxide (Milk Of Magnesia) 30 ml PO DAILYP PRN PRN Reason: Constipation Last Admin: 03/07/17 12:41 Dose: 30 ml Methocarbamol (Robaxin) 750 mg IV Q6H [facility] Last Admin: 03/07/17 15:42 Dose: 750 mg Naloxone HCl (Narcan) 0.1 mg IV Q2MIN PRN PRN Reason: Opiate Reversal Ondansetron HCl (Zofran) 4 mg IV Q6HP PRN PRN Reason: Nausea And Vomiting Last Admin: 03/04/17 17:45 Dose: 4 mg Sodium Chloride (Saline Flush) 10 ml IV Q8 [facility] Last Admin: 03/07/17 12:42 Dose: 10 ml Medical - PN: A/P - Time Spent With Patient Total time spent is greater than 50% in coordination of care (as documented) at patient's floor/unit and/or counseling patient: - Narrative A/P Narrative: A/ 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 total of 6 weeks severe back pain due to above on jess tylenol, toradol, and iv robaxin 2mg dilaudid prn q2hrs if this regime does not hep, will start on manufacturing lead pump. tsa brace as per spine surgery. Hypertension , Blood pressure is well controlled. Continue Norvasc, losartan, HCTZ, cholesterol meds. h/o copd full code regular diet dvt prophylaxis sq hep. Medical - PN: Qual - VTE Deep Vein Thrombosis/Pulmonary Embolism Present on Admission: No
[2017-03-07] MEDS: AMITRIPTYLINE 10 MG TABLET PO SCH (21:26)
[2017-03-07] MEDS: ATORVASTATIN 20 MG TABLET PO SCH (21:26)
[2017-03-08] MEDS: METHOCARBAMOL 1,000 MG/10 ML VIAL IV SCH ×4 (03:49→21:10)
[2017-03-08] MEDS: 0.9 % SODIUM CHLORIDE 10 ML SYRINGE IV SCH ×6 (03:49→21:10)
[2017-03-08] MEDS: KETOROLAC 15 MG/ML VIAL IV SCH ×4 (05:25→23:56)
[2017-03-08] MEDS: HYDROmorphone 2 MG/ML SYRINGE IV PRN ×6 (05:26→22:43)
[2017-03-08 05:50] LABS: Basophils # (Auto) 0 K/mcL (0.0-0.3); Basophils % (Auto) 0.3 % (0.0-2.0); Eosinophils # (Auto) 0.2 K/mcL (0.0-0.7); Eosinophils % (Auto) 2.7 % (0.0-7.0); Granulocytes % (Auto) 73.2 % (38.0-78.0); Lymphocytes # (Auto) 1.4 K/mcL (1.5-4.8); Lymphocytes % (Auto) 14.8 % (15.5-49.0); Mean Cell Volume 92.9 fL (80.0-100.0); Mean Corpuscular HGB Conc 33.8 g/dL (31.0-36.0); Mean Corpuscular Hemoglobin 31.4 pg (26.0-34.0); Monocytes # (Auto) 0.8 K/mcL (0.1-0.9); Platelet Count 334 K/mcL (140-440); RBC 3.56 M/mcL (4.50-5.90); Red Cell Distribution Width 12.4 % (11.5-14.5)
[2017-03-08 06:33] LABS: C-Reactive Protein 15.2 mg/dl (0.0-0.8)
[2017-03-08] MEDS: ceFAZolin 1 GM VIAL IV SCH ×3 (07:00→22:43)
[2017-03-08] MEDS: HEPARIN 5,000 UNIT/ML VIAL SQ SCH ×2 (08:26→21:09)
[2017-03-08] MEDS: FENOFIBRATE 43 MG CAPSULE PO SCH (08:26)
[2017-03-08] MEDS: ASPIRIN 81 MG TAB.CHEW PO SCH (08:27)
[2017-03-08] MEDS: amLODIPine 10 MG TABLET PO SCH (08:27)
[2017-03-08] MEDS: LOSARTAN 50 MG TABLET PO SCH (08:27)
[2017-03-08] MEDS: ASCORBIC ACID 500 MG TABLET PO SCH (08:27)
[2017-03-08] MEDS: HYDROCHLOROTHIAZIDE 25 MG TABLET PO SCH (08:27)
[2017-03-08] MEDS: LIDOCAINE PATCH TOPICAL SCH ×2 (09:44→21:11)
[2017-03-08] MEDS: MAGNESIUM HYDROXIDE 30 ML ORAL.SUSP PO PRN (09:44)
[2017-03-08] MEDS ORDERED: 0.9 % SODIUM CHLORIDE 10 ML SYRINGE IV PRN (11:52)
--- NOTE | 2017-03-08 13:57 | XRay Report ---
CLINICAL INFORMATION: PICC PLACEMENT COMPARISON: 02/22/2017. FINDINGS: Left PICC line tip overlies the brachycephalic SVC junction. Cardiac mediastinal silhouette and pulmonary vessels are normal. There is minor left basilar atelectasis. IMPRESSION: Left PICC line tip overlying the SVC left greater sciatic vein junction. Minor left basilar atelectasis Interpreted and Authenticated by: Arnold Mays 03/08/17
--- NOTE | 2017-03-08 14:15 | XRay Report ---
CLINICAL INFORMATION: picc placement, new adjustment. COMPARISON: 03/08/2017 1316 hours. FINDINGS: PICC line tip now overlies the right atrium - near the tricuspid valve. Heart size, mediastinum and pulmonary vessels are normal. There is minor atelectasis at the left lateral base. IMPRESSION: PICC line tip overlies the right atrium and the tricuspid valve. Suggest withdrawing line 4 cm. Interpreted and Authenticated by: Arnold Mays 03/08/17
--- NOTE | 2017-03-08 16:16 | Orthopedic Consult Note ---
History of Present Illness - [facility] Patient information: Note initiated : 03/08/17 at 4:13 pm Service Date, if different from initiated Date: [] Patient: Cesar Nassar 71 y/o M admitted on 03/03/17 for Osteomylitis/Septic Discitis of Lumbar Region. Chief Complaint: [old left foot injury] Consult date: 03/08/17 Requesting physician: Giulia Hughes Consult reason: other (bacteremia left foot open sore plantar arch) History of present illness: Long-standing history of infection and pain with his back and left foot. He's had a traumatic injury at the age of 13. After multiple surgeries and skin grafts he was able to obtain a moderately functional limb on that side. He is worked with Dr. Campos in the past for surgical consultation for revision of the foot. This was not pursued. He has concern of infection as he is able to express puss-like discharge from this area on a regular basis. This relieves some pain to his foot. He has had custom inserts at times in the past with moderate to minimal success at relieving his problems. He is very interested in the more long-term solution. During his hospital stays had a biopsy of the spine and some other the treatments to try to rule out sources of infection as he's suffering from pneumonia upon admission. Review of Systems Constitutional: as per [facility] Medications and Allergies Home Medications Medication Instructions Recorded Confirmed Type Ascorbate Calcium [Vitamin C] 500 mg PO QDAY 04/23/15 03/03/17 History Aspirin [Ecotrin] 81 mg PO QDAY 04/23/15 03/03/17 History Fenofibrate,Micronized 134 mg PO QDAY 04/23/15 03/03/17 History [Fenofibrate] Losartan/Hydrochlorothiazide 1 each PO QDAY 04/23/15 03/03/17 History [Losartan-Hctz 100-25 mg Tab] Minocycline [Minocin] 100 mg PO DAILY 04/23/15 03/03/17 History Potassium 99 mg PO QDAY 04/23/15 03/03/17 History Rosuvastatin Calcium [Crestor] 5 mg PO HS 04/23/15 03/03/17 History Vitamin E 100 unit PO QDAY 04/23/15 03/03/17 History Aspirin [Ecotrin] 325 mg PO BID #28 tab.ec 04/27/15 03/01/17 Rx amitriptyline 10 mg tablet 20 mg PO HS tab 02/08/17 03/03/17 History amlodipine 10 mg tablet 10 mg PO QDAY 02/08/17 03/03/17 History ipratropium-albuterol 18 mcg-103 spray INHALATION 02/08/17 03/01/17 History mcg/actuation aerosol inhaler Etodolac [Lodine] 400 mg PO BIDP PRN #20 tab 02/21/17 03/03/17 Rx Methocarbamol [Robaxin-750] 750 mg PO TID PRN #30 tab 02/21/17 03/03/17 Rx hydrocodone 10 mg-acetaminophen 1 tab PO Q6H PRN #60 tab 03/03/17 03/03/17 Rx 325 mg tablet predniSONE [Prednisone] 0 mg PO .COMPLEX 03/03/17 03/03/17 History Allergies Allergy/AdvReac Type Severity Reaction Status Date / Time No Known Drug Allergies Allergy Verified 03/03/17 07:20 Physical Examination - Ankle & Foot left Ankle appearance: swelling, erythema Foot appearance: other (2 mm diameter ulceration plantar aspect left foot with the foot appearance showing a large bony mass and extensive skin graft worked on. Foot is a missing left third toe. Generally the foot has a valgus alignment.) Assessment and Plan (1) Pressure ulcer of foot, stage 2 Status: Acute Priority: Medium Comment: 03/08/2017: After extensive discussion with patient he is interested in having a long-term solution to this recurring issue with his left foot. He continues to have infection throughout the body and there is a likelihood that this is related to the open sore he's been dealing with. Three-view x-rays has been ordered to evaluate potential surgical planning to the area. Regardless, debridement of the ulceration with bone sampling will be performed during hospital stay shortly. Qualifiers: Laterality: left Qualified Code(s): L89.892 - Pressure ulcer of other site , stage 2
--- NOTE | 2017-03-08 19:59 | Internal Med Progress Note ---
Medical - PN: Subj Patient information: Note initiated : 03/08/17 at 7:57 pm Service Date, if different from initiated Date: [] Patient: Cesar Nassar 71 y/o M admitted on 03/03/17 for Osteomylitis/Septic Discitis of Lumbar Region. Chief Complaint: [] Interval history: March 03, 2017: History of present illness: Mr. Nassar is a 71 year old man with a history of COPD and hypertension, who has been struggling with low back pain for about 3 weeks. He has had increasing problems getting his pain control. Has been to see either his primary care provider or the emergency room 5 times now, with uncontrolled pain. He was finally sent back into the emergency room today, and underwent an MRI, which is suggestive of possible discitis. He and his report that he has had a fever as high as 101 for about 4 days now. He describes the pain in his low back is a feeling that everything is just tensing up and he just cannot get comfortable or relax. He cannot lay down in bed, so he has been sleeping in a recliner. He rates his pain currently as a 10 out of 10. During 1 of his recent ER visits he was diagnosed with possible pneumonia and treated with antibiotics. However subsequent reading of that chest film did not show pneumonia. The patient said he did have a slight cough at the time, but that is resolved. Otherwise, he denies headaches or dizziness new eye or ear symptoms sinus or teeth pain, sore throat, chest pain or palpitations. He does have chronic dyspnea on exertion due to COPD, which is unchanged. He denies abdominal pain, nausea or vomiting, diarrhea. He does note chronic constipation for which he takes a stool softener. He denies dysuria other than fairly frequent urination , which is chronic. He denies recent back trauma and he has had no known bacteremia or surgeries. I believe his last surgery was a right knee replacement in April of 2015. He was treated with a steroid taper on February 22, but he had had symptoms for quite some time at that point. March 04: Today, the patient continues to have occasional severe low back pain that is just to the right of his lower lumbar spine. In between these episodes he is quite comfortable. He says he definitely woke up feeling better this morning than he did yesterday. He otherwise denies fever or chills, headaches or dizziness, chest pain or shortness of breath, GI or symptoms. He is not really experiencing any lower extremity weakness or sensory changes. He does have occasional spasms of the right leg when his right low back is hurting. March 05: Today, the patient continues to have intermittent severe spasms and pain in the right lower back area. His nurse notes that he seems to not get much relief from anything. He is taking ibuprofen and Tylenol both 3 times daily, in addition to Robaxin plus oral oxycodone plus IV Dilaudid, and still asking for more meds. Today, he notes mild constipation, but says he was able to get up and walk with PT. However he had increased back spasms after doing that. Otherwise, he denies fever or chills, chest pain or shortness of breath, GI or symptoms. He denies any new leg weakness or bowel or bladder incontinence. March 06: -The patient continues to have fairly severe spasms and pain. He continues on numerous pain medications, as noted above, but says she still is having episodes of severe pain. He is able to walk and to shower, but then will have what he describes as a feeling of something completely knotting up and being almost too much to bear. - He otherwise denies fever or chills, and is not having chest pain or trouble breathing GI or symptoms. He has not had bowel or bladder incontinence. He has not noticed increasing leg weakness or numbness. -I spoke with Dr. Herrera of orthopedics, but he did not want to comment on a patient with a spinal issue. I tried to contact Dr. Sol, but he has not returned my call, and my understanding is he is leaving town. So I touch base with Dr. Mays of radiology. He suggested an MRI, to get a better look at this area and be sure we are not missing some other cause for the pain. -Otherwise, the patient's white blood cell count is back to normal. Blood cultures and vertebral aspirate cultures are both growing staph aureus, which is sensitive to most antibiotics. March 07 Patient seen examined, still has severe back pain, repeat MRI reviewed, no indicatino for surgery as per Spine surgery, no neurological deficit Blood cx and aspirate is mssa, d/c vanco and cefepime, start on anceph 2gms q8, will need total of 6 weeks get echo ,repeat blood cultures, hold picc till neg blood cultures xfer to higher center if neurological symptoms. March 08 Patient seen examined, no acute overnight events, patient back pain is better, crp is trending down, continue with present management, no new neurological symptoms. The patients repeat cx is neg at 24 hrs, picc line placed. 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 The patient had injured his leg in the past and intermittently this drains pus. He did not mention as the injury is old. This is the likely source of his bactermia which resulted in his infection of prostesis last year and this years vertebral OM The patient is wiling to ahve this looked at and treated if possible. I have consulted Dr Young podiatry to have a look at this to see if there is any intervention that is necessary to prevent further flare up. Pertinent ROS: Denies headache, dizziness Denies chest pain, palpitations Denies cough or shortness of breath Denies abdominal pain, nausea or vomiting. - Constitutional Vitals: Vital Signs Temp Pulse Resp BP Pulse Ox 98.8 F 86 16 145/74 96 03/08/17 12:00 03/08/17 03:53 03/08/17 12:00 03/08/17 12:00 03/08/17 12:00 Period Temp Pulse Resp BP Sys/Cote Pulse Ox Last 24 Hr 98.2 F-99.3 F 80-99 16-16 133-157/73-88 92-96 Intake and Output 03/08/17 03/08/17 03/08/17 05:59 13:59 21:59 Intake Total 500 / 500 600 / 600 800 / 800 Output Total 225 / 225 200 / 200 300 / 300 Balance 275 / 275 400 / 400 500 / 500 Intake & Output: Intake & Output 03/08/17 03/08/17 03/08/17 05:59 13:59 21:59 Intake Total 500 / 500 600 / 600 800 / 800 Output Total 225 / 225 200 / 200 300 / 300 Balance 275 / 275 400 / 400 500 / 500 Intake: Oral 500 / 500 600 / 600 800 / 800 Output: Void Amount 225 / 225 200 / 200 300 / 300 Other: Meal Breakfast Percent of Meal Consumed 100% # Voids 250 1 # Bowel Movements 1 Exam: Constitutional; Afebrile, cooperative, alert, not in distress. Eyes- No icterus, , No periorbital swelling Ears- Ext ear normal, hearing normal to conversation. Neck- Midline trachea, supple Respiratory system: Air Entry equal on both sides, No crackles or wheezing, no rhonchi. CVS- Rate rhythm regular, S1,S2 heard, no gallop, no rub. Abdomen- Soft nontender abdomen, no organomegaly, no tenderness, no guarding or rigidity, [employer]- AOOx3, moving all extremities, no gross focal deficit noted. Left foot: chr deformity, with sabs, hypertrophied skin. Medical - PN: Obj Da - Labs CBC & Chem 7: 03/08/17 04:25 03/07/17 04:10 Labs: Abnormal Lab Results 03/08/17 03/08/17 03/07/17 04:25 04:25 04:10 RBC 3.56 L Hgb 11.2 L Hct 33.0 L Lymph % (Auto) 14.8 L Lymph # (Auto) 1.4 L Chloride GGT 62 H C-Reactive Protein 15.2 H 18.1 H 03/07/17 03/06/17 03/06/17 04:10 04:31 04:31 RBC 3.75 L 3.68 L Hgb 11.9 L 11.6 L Hct 35.0 L 34.2 L Lymph % (Auto) Lymph # (Auto) 1.3 L 1.3 L Chloride 93 L GGT C-Reactive Protein 18.0 H Meds: Medications Albuterol Sulfate (Ventolin) 2.5 mg NEB Q2HP PRN PRN Reason: Shortness Of Breath Albuterol/Ipratropium (Duoneb) 3 ml NEB TID PRN PRN Reason: Shortness Of Breath Or Wheezing Amitriptyline HCl (Elavil) 20 mg PO HS [facility] Last Admin: 03/07/17 21:26 Dose: 20 mg Amlodipine Besylate (Norvasc) 10 mg PO QDAY [facility] Last Admin: 03/08/17 08:27 Dose: 10 mg Ascorbic Acid (Vitamin C) 500 mg PO DAILY [facility] Last Admin: 03/08/17 08:27 Dose: 500 mg Aspirin (Aspirin) 81 mg PO DAILY [facility] Last Admin: 03/08/17 08:27 Dose: 81 mg Atorvastatin Calcium (Lipitor) 20 mg PO HS [facility] Last Admin: 03/07/17 21:26 Dose: 20 mg Calcium Carbonate/Glycine (Tums) 1,000 mg CHEWED Q4HP PRN PRN Reason: Dyspepsia Cefazolin Sodium (Ancef) 2 gm IV Q8H [facility] Last Admin: 03/08/17 14:40 Dose: 2 gm Docusate Sodium (Colace) 100 mg PO BID PRN PRN Reason: Constipation Last Admin: 03/06/17 16:13 Dose: 100 mg Fenofibrate (Antara) 129 mg PO DAILY [facility] Last Admin: 03/08/17 08:26 Dose: 129 mg Heparin Sodium (Porcine) (Heparin) 5,000 unit SQ Q12 [facility] Last Admin: 03/08/17 08:26 Dose: 5,000 unit Heparin Sodium (Porcine) (Heparin Flush) 2 ml IV Q12 [facility] Heparin Sodium (Porcine) (Heparin Flush) 2 ml IV Q12 [facility] Hydrochlorothiazide (Oretic) 25 mg PO DAILY [facility] Last Admin: 03/08/17 08:27 Dose: 25 mg Hydromorphone HCl (Dilaudid) 2 mg IV Q2HP PRN PRN Reason: PAIN LEVEL > 6 Last Admin: 03/08/17 19:14 Dose: 2 mg Ketorolac Tromethamine (Toradol) 15 mg IV Q6 [facility] Stop: 03/09/17 11:59 Last Admin: 03/08/17 17:41 Dose: 15 mg Lidocaine (Lidoderm) 1 patch TOPICAL DAILY@1000 [facility] Last Admin: 03/08/17 09:44 Dose: 1 patch Lidocaine (Lidoderm) 0 patch TOPICAL DAILY@2200 [facility] Last Admin: 03/07/17 21:26 Dose: 1 patch Lorazepam (Ativan) 0.5 mg PO Q4HP PRN PRN Reason: ANXIETY/SEDATION Last Admin: 03/06/17 21:10 Dose: 0.5 mg Losartan Potassium (Cozaar) 100 mg PO DAILY [facility] Last Admin: 03/08/17 08:27 Dose: 100 mg Magnesium Hydroxide (Milk Of Magnesia) 30 ml PO DAILYP PRN PRN Reason: Constipation Last Admin: 03/08/17 09:44 Dose: 30 ml Methocarbamol (Robaxin) 750 mg IV Q6H [facility] Last Admin: 03/08/17 16:01 Dose: 750 mg Naloxone HCl (Narcan) 0.1 mg IV Q2MIN PRN PRN Reason: Opiate Reversal Ondansetron HCl (Zofran) 4 mg IV Q6HP PRN PRN Reason: Nausea And Vomiting Last Admin: 03/04/17 17:45 Dose: 4 mg Sodium Chloride (Saline Flush) 10 ml IV Q8 [facility] Last Admin: 03/08/17 14:39 Dose: 10 ml Sodium Chloride (Saline Flush) 10 ml IV Q12 [facility] Sodium Chloride (Saline Flush) 10 ml IV UD PRN PRN Reason: FLUSH Medical - PN: A/P - Time Spent With Patient Total time spent is greater than 50% in coordination of care (as documented) at patient's floor/unit and/or counseling patient: - Narrative A/P Narrative: A/ 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 d/c vanco and cefepime, started on anceph. total of 6 weeks needed, PICC placed. Case management to formulate plan discharge based on pricing of drugs Left leg chr infection podiary consult appreciated Plan for x ray and likely OR tomorrow for surgical debridement. severe back pain due to above on jess tylenol, toradol, and iv robaxin 2mg dilaudid prn q2hrs seems to be helping well, will deescalate to orals tsa brace as per spine surgery. Hypertension , Blood pressure is well controlled. Continue Norvasc, losartan, HCTZ, cholesterol meds. h/o copd prn bronchodilators. full code regular diet dvt prophylaxis sq hep. Medical - PN: Qual - VTE Deep Vein Thrombosis/Pulmonary Embolism Present on Admission: No
[2017-03-08] MEDS: ATORVASTATIN 20 MG TABLET PO SCH (21:09)
[2017-03-08] MEDS: AMITRIPTYLINE 10 MG TABLET PO SCH (21:09)
[2017-03-08] MEDS: DOCUSATE SODIUM 100 MG CAPSULE PO PRN (21:09)
[2017-03-09] MEDS: METHOCARBAMOL 1,000 MG/10 ML VIAL IV SCH ×3 (04:11→18:42)
[2017-03-09] MEDS: KETOROLAC 15 MG/ML VIAL IV SCH (05:46)
[2017-03-09] MEDS: 0.9 % SODIUM CHLORIDE 10 ML SYRINGE IV SCH ×5 (05:47→23:42)
[2017-03-09 06:19] LABS: Basophils # (Auto) 0 K/mcL (0.0-0.3); Basophils % (Auto) 0.5 % (0.0-2.0); Eosinophils # (Auto) 0.3 K/mcL (0.0-0.7); Eosinophils % (Auto) 4.5 % (0.0-7.0); Granulocytes % (Auto) 61.1 % (38.0-78.0); Lymphocytes # (Auto) 1.6 K/mcL (1.5-4.8); Lymphocytes % (Auto) 22.2 % (15.5-49.0); Mean Corpuscular HGB Conc 34.2 g/dL (31.0-36.0); Mean Corpuscular Hemoglobin 31.5 pg (26.0-34.0); Monocytes # (Auto) 0.8 K/mcL (0.1-0.9); Monocytes % (Auto) 11.7 % (1.0-12.0); Platelet Count 336 K/mcL (140-440); RBC 3.61 M/mcL (4.50-5.90); Red Cell Distribution Width 12.4 % (11.5-14.5)
[2017-03-09 07:00] LABS: ALT/SGPT 18 U/l (0-40); Albumin 3.5 gm/dL (3.2-5.2); Albumin/Globulin Ratio 1.1 (1.0-2.3); Alkaline Phosphatase 78 U/L (39-117); Bilirubin,Direct < 0.2 mg/dL (0.0-0.3); Blood Urea Nitrogen 15 mg/dl (8-23); Gamma Glutamyl Transpeptidase 60 U/L (8-61); Magnesium 2.1 mg/dL (1.6-2.5); Uric Acid 3.5 mg/dL (2.5-8.0)
[2017-03-09] MEDS: ceFAZolin 1 GM VIAL IV SCH ×3 (07:12→23:21)
[2017-03-09] MEDS: HYDROmorphone 2 MG/ML SYRINGE IV PRN ×5 (07:12→23:20)
[2017-03-09] MEDS: HYDROCHLOROTHIAZIDE 25 MG TABLET PO SCH (09:04)
[2017-03-09] MEDS: ASCORBIC ACID 500 MG TABLET PO SCH (09:04)
[2017-03-09] MEDS: HEPARIN 5,000 UNIT/ML VIAL SQ SCH ×2 (09:04→21:10)
[2017-03-09] MEDS: amLODIPine 10 MG TABLET PO SCH (09:04)
[2017-03-09] MEDS: LOSARTAN 50 MG TABLET PO SCH (09:04)
[2017-03-09] MEDS: ASPIRIN 81 MG TAB.CHEW PO SCH (09:04)
[2017-03-09] MEDS: FENOFIBRATE 43 MG CAPSULE PO SCH (09:04)
[2017-03-09] MEDS: LIDOCAINE PATCH TOPICAL SCH ×3 (10:03→23:47)
--- NOTE | 2017-03-09 11:10 | Brief Operative Note ---
Date of procedure: 03/09/17 Pre-op diagnosis: Left foot: 1. Post traumatic bone spur 2. infection left foot Post-op diagnosis: same Procedure: 1. Excision of left foot bone spur navicular bone 2. Incision and drainage left foot Grafts/Implants: No Anesthesia: local, conscious sedation Complications: none Surgeon: Ayaan Young Estimated blood loss (cc): 50 Tourniquet Time (Minutes): 30 Specimens Removed/Pathology: other (bone and soft tissue left foot) Condition: stable Disposition: floor
[2017-03-09] MEDS ORDERED: PROPOFOL 200 MG/20 ML VIAL IV ONE (11:35)
[2017-03-09] MEDS ORDERED: fentaNYL 100 MCG/2 ML VIAL IV ONE (11:35)
[2017-03-09] MEDS ORDERED: MIDAZOLAM 5 MG/5 ML VIAL IV ONE (11:35)
[2017-03-09] MEDS ORDERED: ONDANSETRON 4 MG/2 ML VIAL IV ONE (11:35)
[2017-03-09] MEDS ORDERED: LIDOCAINE 1% 20 ML, BUPIVACAINE 0.5% 20 ML SQ ONE (11:38)
--- NOTE | 2017-03-09 12:45 | Operative Note ---
DATE OF OPERATION: 03/09/2017 PREOPERATIVE DIAGNOSES: 1. Left foot posttraumatic bone spur formation. 2. Infection of the left foot. POSTOPERATIVE DIAGNOSES: 1. Left foot posttraumatic bone spur formation. 2. Infection of the left foot. PROCEDURES: 1. Excision of left foot bone navicular spur. 2. Incision and drainage, left foot. IMPLANTS: None. ANESTHESIA: Local with conscious sedation. FINDINGS: None. COMPLICATIONS: None. SURGEON: Ayaan Young DPM ESTIMATED BLOOD LOSS: 50 mL TOURNIQUET TIME: 30 minutes. SPECIMENS: Bone and soft tissue, left foot. CONDITION: Stable. DISPOSITION: Floor. PROCEDURE IN DETAIL: The patient was brought the operating room and placed on the operating table in supine position. Left lower extremity was scrubbed, prepped and draped in the usual aseptic manner. Local block with conscious sedation was performed. A total of 10 mL of 1:1 mix of 0.5% Marcaine plain and 1% lidocaine plain was infiltrated in Myobloc fashion. A 3 cm linear longitudinal incision was placed on the medial aspect of patient's left arch. This was to gain access with a deep flap to an abnormal bony prominence present on the metatarsal section proximally where the navicular bone should be located. While palpating the plantar mass, it was found that there was a 2 cm section of an abnormal bone spur formation. This was removed utilizing a sagittal saw blade and a rasp. Once the area was noted to be decreased in size, the area was irrigated with copious amounts of sterile saline. There were two samples taken, one for culture and one for pathology, bone and soft tissue, left foot. Closure was performed with 4-0 and 3-0 Vicryl to deep tissues, 3-0 nylon in a horizontal and simple interrupted suture fashion to the skin. Additional 3 mL of 1:1 mixture of lidocaine and Marcaine was infiltrated at the end of the procedure. Postop dressing was applied consisting of Xeroform, 4 x 4 gauze, Kerlix, Nitish wrap, and ABD pad. The patient tolerated the procedure and anesthesia well and was transferred back to the floor for continued evaluation during his hospital stay. [email or web address] Job ID: [id number] Doc ID: [id number] Ayaan Young DPM
[2017-03-09] MEDS ORDERED: oxyCODONE HCL 5 MG TABLET PO PRN (14:07)
[2017-03-09] MEDS ORDERED: METHOCARBAMOL 750 MG TABLET PO PRN (14:07)
--- NOTE | 2017-03-09 14:12 | Internal Med Progress Note ---
Medical - PN: Subj Patient information: Note initiated : 03/09/17 at 2:09 pm Service Date, if different from initiated Date: [] Patient: Cesar Nassar 71 y/o M admitted on 03/03/17 for Osteomylitis/Septic Discitis of Lumbar Region. Chief Complaint: [] Interval history: March 03, 2017: History of present illness: Mr. Nassar is a 71 year old man with a history of COPD and hypertension, who has been struggling with low back pain for about 3 weeks. He has had increasing problems getting his pain control. Has been to see either his primary care provider or the emergency room 5 times now, with uncontrolled pain. He was finally sent back into the emergency room today, and underwent an MRI, which is suggestive of possible discitis. He and his report that he has had a fever as high as 101 for about 4 days now. He describes the pain in his low back is a feeling that everything is just tensing up and he just cannot get comfortable or relax. He cannot lay down in bed, so he has been sleeping in a recliner. He rates his pain currently as a 10 out of 10. During 1 of his recent ER visits he was diagnosed with possible pneumonia and treated with antibiotics. However subsequent reading of that chest film did not show pneumonia. The patient said he did have a slight cough at the time, but that is resolved. Otherwise, he denies headaches or dizziness new eye or ear symptoms sinus or teeth pain, sore throat, chest pain or palpitations. He does have chronic dyspnea on exertion due to COPD, which is unchanged. He denies abdominal pain, nausea or vomiting, diarrhea. He does note chronic constipation for which he takes a stool softener. He denies dysuria other than fairly frequent urination , which is chronic. He denies recent back trauma and he has had no known bacteremia or surgeries. I believe his last surgery was a right knee replacement in April of 2015. He was treated with a steroid taper on February 22, but he had had symptoms for quite some time at that point. March 04: Today, the patient continues to have occasional severe low back pain that is just to the right of his lower lumbar spine. In between these episodes he is quite comfortable. He says he definitely woke up feeling better this morning than he did yesterday. He otherwise denies fever or chills, headaches or dizziness, chest pain or shortness of breath, GI or symptoms. He is not really experiencing any lower extremity weakness or sensory changes. He does have occasional spasms of the right leg when his right low back is hurting. March 05: Today, the patient continues to have intermittent severe spasms and pain in the right lower back area. His nurse notes that he seems to not get much relief from anything. He is taking ibuprofen and Tylenol both 3 times daily, in addition to Robaxin plus oral oxycodone plus IV Dilaudid, and still asking for more meds. Today, he notes mild constipation, but says he was able to get up and walk with PT. However he had increased back spasms after doing that. Otherwise, he denies fever or chills, chest pain or shortness of breath, GI or symptoms. He denies any new leg weakness or bowel or bladder incontinence. March 06: -The patient continues to have fairly severe spasms and pain. He continues on numerous pain medications, as noted above, but says she still is having episodes of severe pain. He is able to walk and to shower, but then will have what he describes as a feeling of something completely knotting up and being almost too much to bear. - He otherwise denies fever or chills, and is not having chest pain or trouble breathing GI or symptoms. He has not had bowel or bladder incontinence. He has not noticed increasing leg weakness or numbness. -I spoke with Dr. Herrera of orthopedics, but he did not want to comment on a patient with a spinal issue. I tried to contact Dr. Sol, but he has not returned my call, and my understanding is he is leaving town. So I touch base with Dr. Mays of radiology. He suggested an MRI, to get a better look at this area and be sure we are not missing some other cause for the pain. -Otherwise, the patient's white blood cell count is back to normal. Blood cultures and vertebral aspirate cultures are both growing staph aureus, which is sensitive to most antibiotics. March 07 Patient seen examined, still has severe back pain, repeat MRI reviewed, no indicatino for surgery as per Spine surgery, no neurological deficit Blood cx and aspirate is mssa, d/c vanco and cefepime, start on anceph 2gms q8, will need total of 6 weeks get echo ,repeat blood cultures, hold picc till neg blood cultures xfer to higher center if neurological symptoms. March 08 Patient seen examined, no acute overnight events, patient back pain is better, crp is trending down, continue with present management, no new neurological symptoms. The patients repeat cx is neg at 24 hrs, picc line placed. 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 The patient had injured his leg in the past and intermittently this drains pus. He did not mention as the injury is old. This is the likely source of his bactermia which resulted in his infection of prostesis last year and this years vertebral OM The patient is wiling to ahve this looked at and treated if possible. I have consulted Dr Young podiatry to have a look at this to see if there is any intervention that is necessary to prevent further flare up. Mar 09 patient seen examined, no acute overniight events patient doing well ,pain still there but he is willing to try orals, he does want to go home plan for OR by Podiatry today Change pain regime to oral and evaluate how he does no new extremity weakness Pertinent ROS: Denies headache, dizziness Denies chest pain, palpitations Denies cough or shortness of breath Denies abdominal pain, nausea or vomiting. - Constitutional Vitals: Vital Signs Temp Pulse Resp BP Pulse Ox 97.6 F 82 20 135/64 95 03/09/17 12:00 03/09/17 08:00 03/09/17 12:00 03/09/17 12:00 03/09/17 12:00 Period Temp Pulse Resp BP Sys/Cote Pulse Ox Last 24 Hr 97.6 F-98.9 F 74-82 20-20 114-135/64-76 90-95 Intake and Output 03/09/17 03/09/17 03/09/17 05:59 13:59 21:59 Intake Total 500 / 500 Output Total 200 / 200 400 / 400 Balance 300 / 300 -400 / -400 Weight 196 lb Patient Weight 03/10/17 05:59 Weight 196 lb Intake & Output: Intake & Output 03/09/17 03/09/17 03/09/17 05:59 13:59 21:59 Intake Total 500 / 500 Output Total 200 / 200 400 / 400 Balance 300 / 300 -400 / -400 Weight 196 lb Intake: Oral 500 / 500 Output: Void Amount 200 / 200 400 / 400 Exam: Constitutional; Afebrile, cooperative, alert, not in distress. Eyes- No icterus, , No periorbital swelling Ears- Ext ear normal, hearing normal to conversation. Neck- Midline trachea, supple Respiratory system: Air Entry equal on both sides, No crackles or wheezing, no rhonchi. CVS- Rate rhythm regular, S1,S2 heard, no gallop, no rub. Abdomen- Soft nontender abdomen, no organomegaly, no tenderness, no guarding or rigidity, [employer]- AOOx3, moving all extremities, no gross focal deficit noted. Medical - PN: Obj Da - Labs CBC & Chem 7: 03/09/17 04:00 03/09/17 04:00 Labs: Abnormal Lab Results 03/09/17 03/09/17 03/09/17 04:00 04:00 04:00 RBC 3.61 L Hgb 11.4 L Hct 33.2 L Lymph % (Auto) Lymph # (Auto) Chloride 92 L GGT C-Reactive Protein 13.1 H 03/08/17 03/08/17 03/07/17 04:25 04:25 04:10 RBC 3.56 L Hgb 11.2 L Hct 33.0 L Lymph % (Auto) 14.8 L Lymph # (Auto) 1.4 L Chloride GGT 62 H C-Reactive Protein 15.2 H 18.1 H 03/07/17 04:10 RBC 3.75 L Hgb 11.9 L Hct 35.0 L Lymph % (Auto) Lymph # (Auto) 1.3 L Chloride GGT C-Reactive Protein Meds: Medications Albuterol Sulfate (Ventolin) 2.5 mg NEB Q2HP PRN PRN Reason: Shortness Of Breath Albuterol/Ipratropium (Duoneb) 3 ml NEB TID PRN PRN Reason: Shortness Of Breath Or Wheezing Amitriptyline HCl (Elavil) 20 mg PO HS [facility] Last Admin: 03/08/17 21:09 Dose: 20 mg Amlodipine Besylate (Norvasc) 10 mg PO QDAY [facility] Last Admin: 03/09/17 09:04 Dose: 10 mg Ascorbic Acid (Vitamin C) 500 mg PO DAILY [facility] Last Admin: 03/09/17 09:04 Dose: 500 mg Aspirin (Aspirin) 81 mg PO DAILY [facility] Last Admin: 03/09/17 09:04 Dose: 81 mg Atorvastatin Calcium (Lipitor) 20 mg PO HS [facility] Last Admin: 03/08/17 21:09 Dose: 20 mg Calcium Carbonate/Glycine (Tums) 1,000 mg CHEWED Q4HP PRN PRN Reason: Dyspepsia Cefazolin Sodium (Ancef) 2 gm IV Q8H [facility] Last Admin: 03/09/17 07:12 Dose: 2 gm Docusate Sodium (Colace) 100 mg PO BID PRN PRN Reason: Constipation Last Admin: 03/08/17 21:09 Dose: 100 mg Fenofibrate (Antara) 129 mg PO DAILY [facility] Last Admin: 03/09/17 09:04 Dose: 129 mg Heparin Sodium (Porcine) (Heparin) 5,000 unit SQ Q12 [facility] Last Admin: 03/09/17 09:04 Dose: 5,000 unit Heparin Sodium (Porcine) (Heparin Flush) 2 ml IV Q12 [facility] Last Admin: 03/09/17 09:05 Dose: 2 ml Hydrochlorothiazide (Oretic) 25 mg PO DAILY [facility] Last Admin: 03/09/17 09:04 Dose: 25 mg Lidocaine (Lidoderm) 1 patch TOPICAL DAILY@1000 [facility] Last Admin: 03/09/17 10:03 Dose: 1 patch Lidocaine (Lidoderm) 0 patch TOPICAL DAILY@2200 [facility] Last Admin: 03/08/17 21:11 Dose: 1 patch Lorazepam (Ativan) 0.5 mg PO Q4HP PRN PRN Reason: ANXIETY/SEDATION Last Admin: 03/06/17 21:10 Dose: 0.5 mg Losartan Potassium (Cozaar) 100 mg PO DAILY [facility] Last Admin: 03/09/17 09:04 Dose: 100 mg Magnesium Hydroxide (Milk Of Magnesia) 30 ml PO DAILYP PRN PRN Reason: Constipation Last Admin: 03/08/17 09:44 Dose: 30 ml Naloxone HCl (Narcan) 0.1 mg IV Q2MIN PRN PRN Reason: Opiate Reversal Ondansetron HCl (Zofran) 4 mg IV Q6HP PRN PRN Reason: Nausea And Vomiting Last Admin: 03/04/17 17:45 Dose: 4 mg Sodium Chloride (Saline Flush) 10 ml IV Q8 [facility] Last Admin: 03/09/17 05:47 Dose: 10 ml Sodium Chloride (Saline Flush) 10 ml IV Q12 LUC Last Admin: 03/09/17 09:05 Dose: 10 ml Sodium Chloride (Saline Flush) 10 ml IV UD PRN PRN Reason: FLUSH Medical - PN: A/P - Time Spent With Patient Total time spent is greater than 50% in coordination of care (as documented) at patient's floor/unit and/or counseling patient: - Narrative A/P Narrative: A/ 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 on anceph 2gms q8 total of 6 weeks needed, PICC placed. Case management to formulate plan discharge based on pricing of drugs Left leg chr infection podiary consult appreciated Plan for x ray and OR today, will review with them plan prior to D/C severe back pain due to diskitis, osteomeylitis change to orals today 1gm tylenol q6hrs, Naproxen 500bid, oxycodone 10mg q4 prn , methacarbamol q8prn Hypertension , Blood pressure is well controlled. Continue Norvasc, losartan, HCTZ, cholesterol meds. h/o copd prn bronchodilators. full code regular diet dvt prophylaxis sq hep. Medical - PN: Qual - VTE Deep Vein Thrombosis/Pulmonary Embolism Present on Admission: No
[2017-03-09] MEDS: ACETAMINOPHEN 500 MG TABLET PO SCH ×2 (14:58→17:15)
[2017-03-09] MEDS: LORazepam 0.5 MG TABLET PO PRN (15:39)
[2017-03-09] MEDS: NAPROXEN 250 MG TABLET PO SCH (17:15)
[2017-03-09] MEDS: ACETAMINOPHEN 1,000 MG/100 ML BOTTLE IV SCH ×2 (18:30→23:33)
[2017-03-09] MEDS ORDERED: HYDROmorphone 2 MG/ML SYRINGE ONE (18:41)
[2017-03-09] MEDS ORDERED: METHOCARBAMOL 1,000 MG/10 ML VIAL ONE (18:44)
[2017-03-09] MEDS: AMITRIPTYLINE 10 MG TABLET PO SCH (21:10)
[2017-03-09] MEDS: ATORVASTATIN 20 MG TABLET PO SCH (21:10)
[2017-03-10] MEDS: METHOCARBAMOL 1,000 MG/10 ML VIAL IV SCH ×3 (01:06→14:36)
[2017-03-10] MEDS: 0.9 % SODIUM CHLORIDE 10 ML SYRINGE IV SCH ×3 (04:30→21:20)
[2017-03-10] MEDS: ACETAMINOPHEN 1,000 MG/100 ML BOTTLE IV SCH ×2 (05:30→11:59)
[2017-03-10 06:56] LABS: Basophils # (Auto) 0 K/mcL (0.0-0.3); Basophils % (Auto) 0.6 % (0.0-2.0); Eosinophils # (Auto) 0.3 K/mcL (0.0-0.7); Eosinophils % (Auto) 4.9 % (0.0-7.0); Granulocytes % (Auto) 63.2 % (38.0-78.0); Lymphocytes # (Auto) 1.2 K/mcL (1.5-4.8); Lymphocytes % (Auto) 18.7 % (15.5-49.0); Mean Cell Volume 92.1 fL (80.0-100.0); Mean Corpuscular HGB Conc 34.5 g/dL (31.0-36.0); Mean Corpuscular Hemoglobin 31.7 pg (26.0-34.0); Monocytes # (Auto) 0.8 K/mcL (0.1-0.9); Monocytes % (Auto) 12.6 % (1.0-12.0); Platelet Count 305 K/mcL (140-440); Red Cell Distribution Width 12.4 % (11.5-14.5)
[2017-03-10 07:27] LABS: ALT/SGPT 20 U/l (0-40); Albumin 3.1 gm/dL (3.2-5.2); Albumin/Globulin Ratio 0.9 (1.0-2.3); Alkaline Phosphatase 72 U/L (39-117); Bilirubin,Direct < 0.2 mg/dL (0.0-0.3); Blood Urea Nitrogen 12 mg/dl (8-23); Gamma Glutamyl Transpeptidase 54 U/L (8-61); Uric Acid 3.1 mg/dL (2.5-8.0)
[2017-03-10] MEDS: ceFAZolin 1 GM VIAL IV SCH ×3 (08:05→23:49)
[2017-03-10] MEDS: NAPROXEN 250 MG TABLET PO SCH ×2 (08:19→17:27)
[2017-03-10] MEDS: ASPIRIN 81 MG TAB.CHEW PO SCH (08:19)
[2017-03-10] MEDS: amLODIPine 10 MG TABLET PO SCH (08:19)
[2017-03-10] MEDS: FENOFIBRATE 43 MG CAPSULE PO SCH (08:20)
[2017-03-10] MEDS: LOSARTAN 50 MG TABLET PO SCH (08:20)
[2017-03-10] MEDS: ASCORBIC ACID 500 MG TABLET PO SCH (08:20)
[2017-03-10] MEDS: HYDROCHLOROTHIAZIDE 25 MG TABLET PO SCH (09:10)
[2017-03-10] MEDS: HEPARIN 5,000 UNIT/ML VIAL SQ SCH ×2 (11:13→21:17)
[2017-03-10] MEDS: LIDOCAINE PATCH TOPICAL SCH ×2 (11:20→23:00)
--- NOTE | 2017-03-10 11:24 | Orthopedic Progress Note ---
Subjective Patient information: Note initiated : 03/10/17 at 11:22 am Service Date, if different from initiated Date: [] Patient: Cesar Nassar 71 y/o M admitted on 03/03/17 for Osteomylitis/Septic Discitis of Lumbar Region. Chief Complaint: [left foot sore] Principal diagnosis: cellulitis Interval history: felt some throbbing to the foot on the left side. This has since stopped being an issue this morning. Pertinent ROS: no fever chills nausea or vomiting no coughing or wheezing problems. No other issues at this time. Objective Vital signs: Vital Signs Temp Pulse Resp BP BP Pulse Ox 03/10/17 06:54 97.7 F 16 113/67 97 03/10/17 04:00 97.7 F 71 14 136/69 98 03/10/17 00:00 97.2 F 64 16 117/66 93 03/09/17 20:00 99.0 F H 81 16 121/64 90 03/09/17 16:00 97.8 F 20 145/69 95 03/09/17 12:00 97.6 F 20 135/64 95 Intake and Output 03/09/17 03/10/17 03/10/17 21:59 05:59 13:59 Intake Total 1820 / 1820 700 / 700 Output Total 676 / 676 400 / 400 Balance 1820 / 1820 24 24 -400 / -400 Intake: IV 100 / 100 Oral 1820 / 1820 600 / 600 Output: Void Amount 675 / 675 400 / 400 # of times incontinent of urine 1 Other: Meal Dinner Percent of Meal Consumed 75% # Voids 1 Weight 190 lb 8 oz Intake & Output: Intake & Output 03/09/17 03/10/17 03/10/17 21:59 05:59 13:59 Intake Total 1820 / 1820 700 / 700 Output Total 676 / 676 400 / 400 Balance 1820 / 1820 24 / 24 -400 / -400 Weight 190 lb 8 oz Intake: IV 100 / 100 Oral 1820 / 1820 600 / 600 Output: Void Amount 675 / 675 400 / 400 # of times incontinent of urine 1 / Other: Meal Dinner Percent of Meal Consumed 75% # Voids 1 Incision: Yes clean and dry Incision clean and dry: Yes Dressing: Yes clean, Yes dry, Yes intact Weight bearing status: partial (to heel) - Labs CBC & BMP: 03/10/17 04:00 03/10/17 04:00 Labs: 03/10/17 03/09/17 03/08/17 04:00 04:00 04:25 Hgb 10.5 L 11.4 L 11.2 L Hct 30.4 L 33.2 L 33.0 L 03/07/17 03/06/17 03/05/17 04:10 04:31 04:12 Hgb 11.9 L 11.6 L 11.9 L Hct 35.0 L 34.2 L 34.5 L 03/04/17 03/03/17 04:37 12:32 Hgb 12.4 L 14.5 Hct 35.8 L 42.8 Assessment and Plan (1) Pressure ulcer of foot, stage 2 Status: Acute Priority: Medium Comment: status post day 1 for exostectomy with incision and drainage left foot Agent tolerating oral pain medications and oral antibiotics. Recommended discharge to home with follow-up Monday or Monday in podiatry outpatient clinic Qualifiers: Laterality: left Qualified Code(s): L89.892 - Pressure ulcer of other site , stage 2
[2017-03-10] MEDS: DOCUSATE SODIUM 100 MG CAPSULE PO PRN (11:25)
--- NOTE | 2017-03-10 13:23 | Surgical Pathology Report ---
HISTOLOGY SPECIMEN MICROSCOPIC DIAGNOSIS BONE AND SOFT TISSUE, LEFT FOOT, BIOPSY: -- PREDOMINATELY FIBROTIC SOFT TISSUE WITH MINIMAL CHRONIC INFLAMMATION. -- SCANT FRAGMENTS OF DISRUPTED BONE WITH ASSOCIATED HEMORRHAGE. -- NO SIGNIFICANT NEUTROPHILIC INFLAMMATION IDENTIFIED. (DMT:sln) PROCEDURAL IMPRESSION Left foot ulcer. GROSS DESCRIPTION Received in formalin labeled with the patient information, are two fragments of irregularly shaped red-elizondo tissue which together measure 1.2 x 1.4 x 0.6 cm. There is no skin on the specimen; however, there is some soft tissue which grossly appears to be the periphery surrounding a possible ulcer on the larger of these two fragments. Bone is not identified. What appears to be a margin is inked black. The inked fragment is serially sectioned along the long axis. All material is submitted - one cassette. (RAD:djf) Electronically Signed by: Fermín Mata M.D.
[2017-03-10] MEDS: METHOCARBAMOL 750 MG TABLET PO SCH ×2 (14:53→21:17)
--- NOTE | 2017-03-10 17:11 | Internal Med Progress Note ---
Medical - PN: Subj Patient information: Note initiated : 03/10/17 at 5:00 pm Service Date, if different from initiated Date: [] Patient: Cesar Nassar 71 y/o M admitted on 03/03/17 for Osteomylitis/Septic Discitis of Lumbar Region. Chief Complaint: [] Interval history: March 03, 2017: History of present illness: Mr. Nassar is a 71 year old man with a history of COPD and hypertension, who has been struggling with low back pain for about 3 weeks. He has had increasing problems getting his pain control. Has been to see either his primary care provider or the emergency room 5 times now, with uncontrolled pain. He was finally sent back into the emergency room today, and underwent an MRI, which is suggestive of possible discitis. He and his report that he has had a fever as high as 101 for about 4 days now. He describes the pain in his low back is a feeling that everything is just tensing up and he just cannot get comfortable or relax. He cannot lay down in bed, so he has been sleeping in a recliner. He rates his pain currently as a 10 out of 10. During 1 of his recent ER visits he was diagnosed with possible pneumonia and treated with antibiotics. However subsequent reading of that chest film did not show pneumonia. The patient said he did have a slight cough at the time, but that is resolved. Otherwise, he denies headaches or dizziness new eye or ear symptoms sinus or teeth pain, sore throat, chest pain or palpitations. He does have chronic dyspnea on exertion due to COPD, which is unchanged. He denies abdominal pain, nausea or vomiting, diarrhea. He does note chronic constipation for which he takes a stool softener. He denies dysuria other than fairly frequent urination , which is chronic. He denies recent back trauma and he has had no known bacteremia or surgeries. I believe his last surgery was a right knee replacement in April of 2015. He was treated with a steroid taper on February 22, but he had had symptoms for quite some time at that point. March 04: Today, the patient continues to have occasional severe low back pain that is just to the right of his lower lumbar spine. In between these episodes he is quite comfortable. He says he definitely woke up feeling better this morning than he did yesterday. He otherwise denies fever or chills, headaches or dizziness, chest pain or shortness of breath, GI or symptoms. He is not really experiencing any lower extremity weakness or sensory changes. He does have occasional spasms of the right leg when his right low back is hurting. March 05: Today, the patient continues to have intermittent severe spasms and pain in the right lower back area. His nurse notes that he seems to not get much relief from anything. He is taking ibuprofen and Tylenol both 3 times daily, in addition to Robaxin plus oral oxycodone plus IV Dilaudid, and still asking for more meds. Today, he notes mild constipation, but says he was able to get up and walk with PT. However he had increased back spasms after doing that. Otherwise, he denies fever or chills, chest pain or shortness of breath, GI or symptoms. He denies any new leg weakness or bowel or bladder incontinence. March 06: -The patient continues to have fairly severe spasms and pain. He continues on numerous pain medications, as noted above, but says she still is having episodes of severe pain. He is able to walk and to shower, but then will have what he describes as a feeling of something completely knotting up and being almost too much to bear. - He otherwise denies fever or chills, and is not having chest pain or trouble breathing GI or symptoms. He has not had bowel or bladder incontinence. He has not noticed increasing leg weakness or numbness. -I spoke with Dr. Herrera of orthopedics, but he did not want to comment on a patient with a spinal issue. I tried to contact Dr. Sol, but he has not returned my call, and my understanding is he is leaving town. So I touch base with Dr. Mays of radiology. He suggested an MRI, to get a better look at this area and be sure we are not missing some other cause for the pain. -Otherwise, the patient's white blood cell count is back to normal. Blood cultures and vertebral aspirate cultures are both growing staph aureus, which is sensitive to most antibiotics. March 07 Patient seen examined, still has severe back pain, repeat MRI reviewed, no indicatino for surgery as per Spine surgery, no neurological deficit Blood cx and aspirate is mssa, d/c vanco and cefepime, start on anceph 2gms q8, will need total of 6 weeks get echo ,repeat blood cultures, hold picc till neg blood cultures xfer to higher center if neurological symptoms. March 08 Patient seen examined, no acute overnight events, patient back pain is better, crp is trending down, continue with present management, no new neurological symptoms. The patients repeat cx is neg at 24 hrs, picc line placed. 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 The patient had injured his leg in the past and intermittently this drains pus. He did not mention as the injury is old. This is the likely source of his bactermia which resulted in his infection of prostesis last year and this years vertebral OM The patient is wiling to ahve this looked at and treated if possible. I have consulted Dr Young podiatry to have a look at this to see if there is any intervention that is necessary to prevent further flare up. Mar 09 patient seen examined, no acute overniight events patient doing well ,pain still there but he is willing to try orals, he does want to go home plan for OR by Podiatry today Change pain regime to oral and evaluate how he does no new extremity weakness Mar 10 patient seen examined, was swithced to orals but did not toleate it well went back to IV withing a few hours. Plan to swithc to a different oral regime now, he does not seep to respond to oxycodone, try oral dilaudid and see if this helps jess naproxen and tylehol along with methacarbamol to continue Pt can be d/c in AM if able to get pain under control, and able to set up home IV ABX via CAD Pump Pertinent ROS: Denies headache, dizziness Denies chest pain, palpitations Denies cough or shortness of breath Denies abdominal pain, nausea or vomiting. - Constitutional Vitals: Vital Signs Temp Pulse Resp BP Pulse Ox 97.5 F 71 16 100/67 93 03/10/17 15:04 03/10/17 04:00 03/10/17 15:04 03/10/17 15:04 03/10/17 15:04 Period Temp Pulse Resp BP Sys/Cote Pulse Ox Last 24 Hr 97.2 F-99.0 F 64-81 14-18 100-136/64-69 90-98 Intake and Output 03/10/17 03/10/17 03/10/17 05:59 13:59 21:59 Intake Total 700 / 700 100 / 100 1000 / 1000 Output Total 676 / 676 1050 / 1050 Balance -950 / -950 1000 / 1000 Intake & Output: Intake & Output 03/10/17 03/10/17 03/10/17 05:59 13:59 21:59 Intake Total 700 / 700 100 / 100 1000 / 1000 Output Total 676 / 676 1050 / 1050 Balance -950 / -950 1000 / 1000 Intake: IV 100 / 100 100 / 100 100 / 100 Oral 600 / 600 900 / 900 Output: Void Amount 675 / 675 1050 / 1050 # of times incontinent of urine Other: Meal Lunch Percent of Meal Consumed 100% Feeding Ability Independent # Voids 1 Exam: Constitutional; Afebrile, cooperative, alert, not in distress. Eyes- No icterus, , No periorbital swelling Ears- Ext ear normal, hearing normal to conversation. Neck- Midline trachea, supple Respiratory system: Air Entry equal on both sides, No crackles or wheezing, no rhonchi. CVS- Rate rhythm regular, S1,S2 heard, no gallop, no rub. Abdomen- Soft nontender abdomen, no organomegaly, no tenderness, no guarding or rigidity, [employer]- AOOx3, moving all extremities, no gross focal deficit noted. Medical - PN: Obj Da - Labs CBC & Chem 7: 03/10/17 04:00 03/10/17 04:00 Labs: Abnormal Lab Results 03/10/17 03/10/17 03/10/17 04:00 04:00 04:00 RBC 3.30 L Hgb 10.5 L Hct 30.4 L Lymph % (Auto) [place] % (Auto) 12.6 H Lymph # (Auto) 1.2 L Sodium 132 L Chloride 93 L C-Reactive Protein 10.5 H Albumin 3.1 L Albumin/Globulin Ratio 0.9 L 03/09/17 03/09/17 03/09/17 04:00 04:00 04:00 RBC 3.61 L Hgb 11.4 L Hct 33.2 L Lymph % (Auto) [place] % (Auto) Lymph # (Auto) Sodium Chloride 92 L C-Reactive Protein 13.1 H Albumin Albumin/Globulin Ratio 03/08/17 03/08/17 04:25 04:25 RBC 3.56 L Hgb 11.2 L Hct 33.0 L Lymph % (Auto) 14.8 L [place] % (Auto) Lymph # (Auto) 1.4 L Sodium Chloride C-Reactive Protein 15.2 H Albumin Albumin/Globulin Ratio Meds: Medications Acetaminophen (Tylenol) 1,000 mg PO Q6 [facility] Albuterol Sulfate (Ventolin) 2.5 mg NEB Q2HP PRN PRN Reason: Shortness Of Breath Albuterol/Ipratropium (Duoneb) 3 ml NEB TID PRN PRN Reason: Shortness Of Breath Or Wheezing Amitriptyline HCl (Elavil) 20 mg PO HS [facility] Last Admin: 03/09/17 21:10 Dose: 20 mg Amlodipine Besylate (Norvasc) 10 mg PO QDAY [facility] Last Admin: 03/10/17 08:19 Dose: 10 mg Ascorbic Acid (Vitamin C) 500 mg PO DAILY [facility] Last Admin: 03/10/17 08:20 Dose: 500 mg Aspirin (Aspirin) 81 mg PO DAILY [facility] Last Admin: 03/10/17 08:19 Dose: 81 mg Atorvastatin Calcium (Lipitor) 20 mg PO HS [facility] Last Admin: 03/09/17 21:10 Dose: 20 mg Calcium Carbonate/Glycine (Tums) 1,000 mg CHEWED Q4HP PRN PRN Reason: Dyspepsia Cefazolin Sodium (Ancef) 2 gm IV Q8H [facility] Last Admin: 03/10/17 14:59 Dose: 2 gm Docusate Sodium (Colace) 100 mg PO BID PRN PRN Reason: Constipation Last Admin: 03/10/17 11:25 Dose: 100 mg Fenofibrate (Antara) 129 mg PO DAILY [facility] Last Admin: 03/10/17 08:20 Dose: 129 mg Heparin Sodium (Porcine) (Heparin) 5,000 unit SQ Q12 [facility] Last Admin: 03/10/17 11:13 Dose: 5,000 unit Heparin Sodium (Porcine) (Heparin Flush) 2 ml IV Q12 [facility] Last Admin: 03/10/17 09:10 Dose: 2 ml Hydrochlorothiazide (Oretic) 25 mg PO DAILY [facility] Last Admin: 03/10/17 09:10 Dose: 25 mg Hydromorphone HCl (Dilaudid) 2 - 4 mg PO Q4HP PRN PRN Reason: Pain Lidocaine (Lidoderm) 1 patch TOPICAL DAILY@1000 [facility] Last Admin: 03/10/17 11:20 Dose: 1 patch Lidocaine (Lidoderm) 0 patch TOPICAL DAILY@2200 [facility] Last Admin: 03/09/17 23:47 Dose: Not Given Lorazepam (Ativan) 0.5 mg PO Q4HP PRN PRN Reason: ANXIETY/SEDATION Last Admin: 03/09/17 15:39 Dose: 0.5 mg Losartan Potassium (Cozaar) 100 mg PO DAILY [facility] Last Admin: 03/10/17 08:20 Dose: 100 mg Magnesium Hydroxide (Milk Of Magnesia) 30 ml PO DAILYP PRN PRN Reason: Constipation Last Admin: 03/08/17 09:44 Dose: 30 ml Methocarbamol (Robaxin) 750 mg PO TID [facility] Last Admin: 03/10/17 14:53 Dose: Not Given Naloxone HCl (Narcan) 0.1 mg IV Q2MIN PRN PRN Reason: Opiate Reversal Naproxen (Naprosyn) 500 mg PO BIDCC [facility] Last Admin: 03/10/17 08:19 Dose: 500 mg Ondansetron HCl (Zofran) 4 mg IV Q6HP PRN PRN Reason: Nausea And Vomiting Last Admin: 03/04/17 17:45 Dose: 4 mg Sodium Chloride (Saline Flush) 10 ml IV Q8 [facility] Last Admin: 03/10/17 14:36 Dose: 10 ml Sodium Chloride (Saline Flush) 10 ml IV UD PRN PRN Reason: FLUSH Last Admin: 03/09/17 23:21 Dose: 10 ml Medical - PN: A/P - Time Spent With Patient Total time spent is greater than 50% in coordination of care (as documented) at patient's floor/unit and/or counseling patient: - Narrative A/P Narrative: A/ 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 repeat cx, neg, echo neg for vegetations. on anceph 2gms q8 total of 6 weeks needed, PICC placed. pt plans to come here daily for medications, Iv anceph for 6 weeks via cad pump. Left leg chr infection podiatry consult appreciated s/p debridement, appreciated podiatry consult. severe back pain due to diskitis, osteomyelitis change to orals today 1gm tylenol q6hrs, Naproxen 500bid, dilaudid po prn , methocarbamol q8 see how he does, if he is able to tolerate po he can be discharged in AM Hypertension , Blood pressure is well controlled. Continue Norvasc, losartan, HCTZ, cholesterol meds. h/o copd prn bronchodilators. full code regular diet dvt prophylaxis sq hep. Medical - PN: Qual - VTE Deep Vein Thrombosis/Pulmonary Embolism Present on Admission: No
[2017-03-10] MEDS: ACETAMINOPHEN 500 MG TABLET PO SCH (17:26)
--- NOTE | 2017-03-10 18:16 | XRay Report ---
CLINICAL INFORMATION: Severe foot deformity - plantar ulceration arch COMPARISON: None. FINDINGS: Complete solid fusion of all hindfoot and midfoot joints is appreciated. The talus, calcaneus , cuboid and cuneiform have the appearance of a solid monolithic osseous structure. There is also solid fusion across the first and second MTTjoints and first MTP. Severe degenerative changes noted in the third fourth and fifth MTT joints . The second proximal phalanx is markedly elongated. 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 There is severe degenerative change in the second third fourth and fifth MTP joints. Mild diffuse soft tissue swelling noted IMPRESSION: Extensive chronic findings. No acute disease Interpreted and Authenticated by: Arnold Mays 03/10/17
[2017-03-10] MEDS: HYDROmorphone 2 MG TABLET PO PRN (19:21)
[2017-03-10] MEDS: AMITRIPTYLINE 10 MG TABLET PO SCH (21:17)
[2017-03-10] MEDS: ATORVASTATIN 20 MG TABLET PO SCH (21:17)
[2017-03-11] MEDS: ACETAMINOPHEN 500 MG TABLET PO SCH ×3 (00:02→12:41)
[2017-03-11] MEDS: HYDROmorphone 2 MG TABLET PO PRN ×3 (04:33→12:44)
[2017-03-11] MEDS: 0.9 % SODIUM CHLORIDE 10 ML SYRINGE IV SCH (06:04)
[2017-03-11 06:59] LABS: ALT/SGPT 19 U/l (0-40); Albumin 3.5 gm/dL (3.2-5.2); Albumin/Globulin Ratio 1.1 (1.0-2.3); Alkaline Phosphatase 74 U/L (39-117); Bilirubin,Direct < 0.2 mg/dL (0.0-0.3); Blood Urea Nitrogen 11 mg/dl (8-23); Gamma Glutamyl Transpeptidase 61 U/L (8-61); Magnesium 2.1 mg/dL (1.6-2.5); Uric Acid 2.9 mg/dL (2.5-8.0)
[2017-03-11] MEDS: ceFAZolin 1 GM VIAL IV SCH (07:34)
[2017-03-11] MEDS: NAPROXEN 250 MG TABLET PO SCH (07:52)
[2017-03-11] MEDS: METHOCARBAMOL 750 MG TABLET PO SCH (08:52)
[2017-03-11] MEDS: amLODIPine 10 MG TABLET PO SCH (08:52)
[2017-03-11] MEDS: HYDROCHLOROTHIAZIDE 25 MG TABLET PO SCH (08:52)
[2017-03-11] MEDS: ASPIRIN 81 MG TAB.CHEW PO SCH (08:52)
[2017-03-11] MEDS: ASCORBIC ACID 500 MG TABLET PO SCH (08:52)
[2017-03-11] MEDS: HEPARIN 5,000 UNIT/ML VIAL SQ SCH (08:53)
[2017-03-11] MEDS: FENOFIBRATE 43 MG CAPSULE PO SCH (08:53)
[2017-03-11] MEDS: LOSARTAN 50 MG TABLET PO SCH (08:53)
[2017-03-11] MEDS: LIDOCAINE PATCH TOPICAL SCH (11:01)
--- NOTE | 2017-03-11 12:22 | Discharge Summary ---
Medical - DS: Prov Patient information: Note initiated : 03/11/17 at 12:11 pm Service Date, if different from initiated Date: [] Patient: Cesar Nassar 71 y/o M admitted on 03/03/17 for Osteomylitis/Septic Discitis of Lumbar Region. Chief Complaint: [] Date of admission: 03/03/17 17:30 Discharge date: 03/11/17 Primary care physician: Annabelle Lee DO Attending physician on admission: Alba Lewis Consults: 03/03/17 14:05 Consult to Physician [CONS] Stat Comment: Consulting Provider: Alba Lewis Reason For Exam: Physician to Consult 03/03/17 18:01 Consult to Physician [CONS] Routine Comment: Consulting Provider: Av Garcia Reason For Exam: Physician to Consult 03/08/17 15:45 Consult to Physician [CONS] Routine Comment: Consulting Provider: Ayaan Young Reason For Exam: Physician to Consult Attending physician on discharge: Lilia Babb Medical - DS: Meds - Discharge Medications Prescriptions: Acetaminophen [Tylenol] 1,000 mg PO Q6 #240 tab ceFAZolin [Ancef] 2 gm IV Q8H #114 vial HYDROmorphone HCL [Dilaudid] 4 mg PO Q4HP PRN #60 tab PRN Reason: Pain Lidocaine [Lidoderm] 1 patch TOPICAL DAILY@1000 #30 patch Methocarbamol [Robaxin-750] 750 mg PO TID PRN #30 tab PRN Reason: Muscle Spasm Active and Home Medications: Home Medications Ascorbate Calcium [Vitamin C] 500 mg PO QDAY 04/23/15 [History Confirmed Last Taken 03/03/17 09:00] Aspirin [Ecotrin] 81 mg PO QDAY 04/23/15 [History Confirmed 03/03/17 Last Taken 03/03/17 09:00] Fenofibrate,Micronized [Fenofibrate] 134 mg PO QDAY 04/23/15 [History Confirmed 03/03/17 Last Taken 03/03/17 09:00] Losartan/Hydrochlorothiazide [Losartan-Hctz 100-25 mg Tab] 1 each PO QDAY [History Confirmed 03/03/17 Last Taken 03/03/17 09:00] Minocycline [Minocin] 100 mg PO DAILY 04/23/15 [History Confirmed 03/03/17 Last Taken 03/03/17 09:00] Potassium 99 mg PO QDAY 04/23/15 [History Confirmed 03/03/17 Last Taken 09:00] Rosuvastatin Calcium [Crestor] 5 mg PO HS 04/23/15 [History Confirmed 03/03/17 Last Taken 03/02/17 21:00] Vitamin E 100 unit PO QDAY 04/23/15 [History Confirmed 03/03/17 Last Taken 03/03 09:00] Aspirin [Ecotrin] 325 mg PO BID #28 tab.ec 04/27/15 [Rx Confirmed 03/01/17 Last Taken Unknown] amitriptyline 10 mg tablet 20 mg PO HS tab 02/08/17 [History Confirmed Last Taken 03/02/17] amlodipine 10 mg tablet 10 mg PO QDAY 02/08/17 [History Confirmed 03/03/17 Last Taken 03/03/17 09:00] ipratropium-albuterol 18 mcg-103 mcg/actuation aerosol inhaler spray INHALATION 02/08/17 [History Confirmed 03/01/17 Last Taken Unknown] Etodolac [Lodine] 400 mg PO BIDP PRN #20 tab 02/21/17 [Rx Confirmed 03/03/17 Last Taken Unknown] Methocarbamol [Robaxin-750] 750 mg PO TID PRN #30 tab 02/21/17 [Rx Confirmed 11/10 Last Taken Unknown] hydrocodone 10 mg-acetaminophen 325 mg tablet 1 tab PO Q6H PRN #60 tab 03/03/17 [Rx Confirmed 03/03/17 Last Taken 03/03/17 09:00] predniSONE [Prednisone] 0 mg PO .COMPLEX 03/03/17 [History Confirmed 03/03/17 Last Taken 03/03/17 09:00] Medical - DS: Hosp Hospital course: Follow up issues: 1. Weekly CBC, BMP, CRP while on cefazolin. Cefazolin to end on 04/17/17 to complete 6-week course. 2. Wean off opiates as able. 3. Recommend repeat imaging the week of 04/10- to evaluate MRI progression. If MRI not improved, consider prolonging IV antibiotic course and infectious disease consultation +/-neurosurgical or ortho consultation. Mr. Nassar is a 71 year old M wiht a history of COPD and HTN who presented with a 3-week history of back pain found to have fever who underwent outpatient MRI and was ultimately found to have MSSA discitis of L2-3. He underwent CT guided bone biopsy on 03/03 that grew out MSSA. His antibiotics were changed from vancomycin to cefazolin on 03/06. His pain has been difficult to control despite multiple regimens but is finally controlled on po Dilaudid, Robaxin, Tylenol, Naproxen and lidocaine patch. He is not sure whether the Naproxen is helping that much so it has been discontinued due to risk of renal failure and GI bleed. Due to such severe pain, MRI was repeated which radiographically looked worse, including two small abscesses adjacent to L3 body. His CRP was trending down and his fever resolved. He had ortho consultation and Dr. Sol 's team felt he did not need surgical intervention unless he had neurologic deficits, which he has not. It is unclear what the source of the osteomyelitis is. His transthoracic echo was negative for vegetation and his bacteremia cleared, making complicated endocarditis seem unlikely. 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 Dr. Ayaan Young with podiatry did I & D of the foot with excision of L foot bone spur. Intra-op culture did not grow any organisms. He can be partial weightbearing on his heel. He will complete a 6 week course of IV cefazolin on 04/17/16 via CADD pump through [facility]. Weekly CBC, BMP, CRP to be drawn and copied to PCP. He has been counseled to return to care sooner if he has fever, worsening pain, neurologic deficit or diarrhea. He is instructed that the Dilaudid may be constipating and the antibiotics put him at risk of C diff. He will eat yogurt or probiotics while on antibiotics. Discharge diagnosis: L2-L3 MSSA osteomyelitis Secondary discharge diagnosis: L foot wound, chronic infection s/p debridement by Dr. Ayaan Young Severe lower back pain, controlled on oral Dilaudid. Hydrocodone, oxycodone ineffective. Essential HTN H/o COPD - Time Spent with Patient Total time spent providing and/or coordinating discharge services: Greater than 30 minutes Medical - DS: Exam - Constitutional Vitals: Vital Signs Temp Pulse Resp BP Pulse Ox 03/11/17 06:56 98.6 F 16 118/69 94 03/11/17 04:30 98.0 F 77 16 112/72 93 03/10/17 23:54 98.2 F 74 16 123/72 91 03/10/17 20:00 98.0 F 75 20 129/78 92 03/10/17 15:04 97.5 F 16 100/67 93 Intake and Output 03/10/17 03/11/17 03/11/17 21:59 05:59 13:59 Intake Total 1240 / 1240 350 / 350 480 / 480 Output Total 475 / 475 1200 / 1200 600 / 600 Balance 765 / 765 -850 / -850 -120 / -120 Intake: IV 100 / 100 Oral 1140 / 1140 350 / 350 480 / 480 Output: Void Amount 475 / 475 1200 / 1200 600 / 600 Other: Meal Dinner Breakfast Percent of Meal Consumed 100% 100% Feeding Ability Independent Independent # Voids 1 Weight 190 lb Gen: NAD HEENT: NCAT, EOMI, PERRLA CV: RRR. No murmur Pulm: CTAB Abd: Soft, nd, nt. +BT Ext: L foot is wrapped in jose bandage NRO: A/O x 3. no gross motor deficit Medical - DS: Data Procedures and tests throughout hospitalization: 03/03/17 Bone biopsy 03/08/17 PICC line placement 03/09/17 I&D of L foot, bone spur removal Labs on day of discharge: Labs from last 24 hours 03/11/17 04:00 Sodium 134 Potassium 4.0 Chloride 94 L Carbon Dioxide 27 Anion Gap 13.0 BUN 11 Creatinine 0.8 GFR Calculation 90 Glucose 93 Uric Acid 2.9 Calcium 9.6 Phosphorus 3.0 Magnesium 2.1 Total Bilirubin 0.2 Direct Bilirubin < 0.2 GGT 61 AST 26 ALT 19 Alkaline Phosphatase 74 Lactate Dehydrogenase 153 Total Protein 6.7 Albumin 3.5 Globulin 3.2 Albumin/Globulin Ratio 1.1 Triglycerides 97 Preliminary micro results at discharge 03/09/17 11:54 Anaerobic Culture - Preliminary Foot - Left 03/07/17 07:15 Blood Culture - Preliminary Blood 03/07/17 07:10 Blood Culture - Preliminary Blood - Impressions MRI 03/06/17 IMPRESSION: 1. Moderate L2-3 discitis and L3 osteomyelitis has worsened modestly since the exam three days ago. In addition, there is now inflammatory extension into the peripheral paravertebral soft tissues with two small abscesses adjacent to the L3 vertebral body 2. Multilevel degenerative change is stable Medical - DS: A/P - Patient/Caregiver Discharge Instructions Activity: increase activity as tolerated, other (partial weight bearing on L foot, heel weight bearing only) Diet: Regular Diet Additional Instructions: 1. You can use Tylenol 1000mg 4 times daily for your pain. Do not exceed 4000mg in a 24 hour period or it can cause liver injury. Use Dilaudid as needed for pain. This can be constipating. Use Miralax or Senna (available over the counter ) to make sure your bowels stay regular. You can use over the counter lidocaine patches as your insurance does not cover the prescription-strength patches. 2. You will be on IV Cefazolin via the CADD pump through 04/17/17. You should be getting weekly lab draws (CBC, BMP, CRP) to monitor your infection and watch for any side effects of the antibiotics. Ask your PCP about getting repeat MRI before the course of antibiotics is done to make sure your infection is resolving. You are at risk of getting C diff diarrhea while on antibiotics. Take probiotics twice daily or eat yogurt twice daily to prevent this. If you have diarrhea, it will need to be tested for C diff. 3. If you have recurrent fever, leg weakness, foot drop, diarrhea, or worsening pain, return to the ER for further workup. - Follow up Plan Follow up with: Annabelle Lee DO [Primary Care Provider] - Disposition: Home, Self-Care Prognosis: Fair Rehab Potential: Good I certify that the patient requires SNF services: No Overall status at discharge: patient is progressing back to baseline Medical - DS: Qual - VTE Deep Vein Thrombosis/Pulmonary Embolism Present on Admission: No
--- NOTE | 2017-03-12 10:53 | Internal Med Progress Note ---
Medical - Auxillary Note - Subjective Patient Information: Note initiated : 03/12/17 at 10:51 am Service Date, if different from initiated Date: [] Patient: Cesar Nassar 71 y/o M admitted on 03/03/17 for Osteomylitis/Septic Discitis of Lumbar Region. Chief Complaint: [] Vital Signs Temp Pulse Resp BP Pulse Ox 97.7 F 70 16 102/65 98 03/11/17 15:09 03/11/17 15:09 03/11/17 15:09 03/11/17 15:09 03/11/17 15:09 Period Temp Pulse Resp BP Sys/Cote Pulse Ox Last 24 Hr 97.7 F-97.9 F 70 16-20 102-130/65-80 98-98 Result Diagarams 03/10/17 04:00 03/11/17 04:00 Abnormal Labs 03/11/17 03/10/17 03/10/17 04:00 04:00 04:00 RBC Hgb Hct [place] % (Auto) Lymph # (Auto) Sodium 132 L Chloride 94 L 93 L C-Reactive Protein 10.5 H Albumin 3.1 L Albumin/Globulin Ratio 0.9 L 03/10/17 04:00 RBC 3.30 L Hgb 10.5 L Hct 30.4 L [place] % (Auto) 12.6 H Lymph # (Auto) 1.2 L Sodium Chloride C-Reactive Protein Albumin Albumin/Globulin Ratio Pt having uncontrolled back spasms. Has been taking 1300mg Tylenol at a time. I again instructed him not to take more than 4000mg in a 24 hour period and not use the hydrocodone he has at home. Resume Naproxen 500mg po BID. Can increase methocarbamol to 1500mg 4 times daily. PRN Valium if that doesn't work. Scripts sent to [facility].
== END 2017-03-11 14:15 | disposition home or self-care (01) | DRG 478 ==
LOC: ED 12:13 → MEDSUR 17:30
PROVIDERS: ADMIT Internal Medicine; ATTEND Internal Medicine

== ENCOUNTER 2017-03-21 11:13 | Inpatient (IN) ==
[2017-03-21] MEDS ORDERED: 0.9 % SODIUM CHLORIDE 1,000 ML IV ONE (12:04)
--- NOTE | 2017-03-21 12:07 | Emergency Department Note ---
General Adult HPI - General Chief complaint: Weakness Stated complaint: Weakness Time Seen by Provider: 03/21/17 11:15 Source: patient, family Mode of arrival: wheelchair Limitations: no limitations - History of Present Illness HPI Narrative: This patient has lumbar discitis osteomyelitis and has been getting IV antibiotics since mid February. He has another month ago on it. His pain is not worse but it is bothering him more. Sounds like they have cut back on some of his pain medication the only gets adequate relief for about an hour. Also in general feels weaker. However does not seem to describe new focal weakness as if he has new neurologic symptoms. - Related Data Home Medications Medication Instructions Recorded Confirmed Ascorbate Calcium [Vitamin C] 500 mg PO QDAY 04/23/15 03/15/17 Aspirin [Ecotrin] 81 mg PO QDAY 04/23/15 03/15/17 Fenofibrate,Micronized 134 mg PO QDAY 04/23/15 03/15/17 [Fenofibrate] Losartan/Hydrochlorothiazide 1 each PO QDAY 04/23/15 03/15/17 [Losartan-Hctz 100-25 mg Tab] Rosuvastatin Calcium [Crestor] 5 mg PO HS 04/23/15 03/15/17 amitriptyline 10 mg tablet 20 mg PO HS tab 02/08/17 03/15/17 amlodipine 10 mg tablet 10 mg PO QDAY 02/08/17 03/15/17 ipratropium-albuterol 18 mcg-103 spray INHALATION 02/08/17 03/15/17 mcg/actuation aerosol inhaler Previous Rx's Medication Instructions Recorded Acetaminophen [Tylenol] 1,000 mg PO Q6 #240 tab 03/11/17 HYDROmorphone HCL [Dilaudid] 4 mg PO Q4HP PRN #60 tab 03/11/17 Lidocaine [Lidoderm] 1 patch TOPICAL DAILY@1000 #30 03/11/17 patch ceFAZolin [Ancef] 2 gm IV Q8H #114 vial 03/11/17 Naproxen 500 mg PO BID #30 tab 03/12/17 diazepam 5 mg tablet 5 mg PO TIDP PRN #60 tab 03/15/17 methocarbamol 750 mg tablet 750 mg PO TID PRN #60 tab 03/15/17 fentanyl 50 mcg/hr transdermal 1 patch TRANSDERMA Q72H #10 each 03/16/17 patch Allergies Allergy/AdvReac Type Severity Reaction Status Date / Time No Known Drug Allergies Allergy Verified 03/21/17 11:17 Review of Systems All systems ED: reviewed and negative except as stated. Past Medical History - Past Medical History [facility] Narrative: Medical History (Last Reviewed 03/20/17 @ 18:56 by Annabelle Lee DO) Strain of lumbar region (Acute) Thoracic back pain (Acute) Septic discitis of lumbar region (Acute) Pressure ulcer of foot, stage 2 (Acute) Hospital discharge follow-up (Acute) Discitis, unspecified, lumbar region (Acute) Osteomyelitis due to Staphylococcus aureus (Acute) Back pain (Acute) Rosacea (Chronic) COPD (chronic obstructive pulmonary disease) (Chronic) Wellness examination (Chronic) History of tobacco abuse (Chronic) Joint pain (Chronic) Hyperlipidemia (Chronic) Hypertension, essential (Chronic) Irregular heart beat (Chronic ~2006) Lung disorder (Chronic) Effusion, right knee (Acute) Rosacea (Chronic) Past Surgical History (Last Reviewed 03/20/17 @ 18:56 by Annabelle Lee DO) H/O rotator cuff surgery (Chronic) History of total left knee replacement (Chronic) Hx of appendectomy (Chronic) S/P herniorrhaphy (Chronic) Status post right partial knee replacement (Chronic) Family History (Last Reviewed 03/20/17 @ 18:56 by Annabelle Lee DO) Father Arthritis Diabetes Sister Breast cancer Medical history: Reports: COPD, hyperlipidemia, hypertension Surgical history ED: Reports: appendectomy, herniorrhaphy, knee replacement, orthopedic, other (Rotator cuff) - Social History smoking status: Former smoker Alcohol use: Reports: Occasionally Drug use: Reports: none Physical Exam Limitations: no limitations General appearance: alert Head: atraumatic Eye: Present: normal appearance ENT: normal exam Neck: Present: normal inspection Chest: Present: normal inspection Respiratory: Present: normal lung sounds bilaterally Cardiovascular: Present: regular rate, normal rhythm, normal heart sounds Abdominal: Present: soft. Absent: distention, tenderness Neurological: Present: alert Motor strength - LLE: 5/5 Motor strength - RLE: 5/5 Psychiatric: Present: normal affect, normal mood Skin: Present: warm, dry, intact Course Vital Signs Temperature 98.6 F 03/21/17 11:14 Pulse Rate 89 03/21/17 11:14 Respiratory Rate 16 03/21/17 11:14 Blood Pressure 148/86 03/21/17 11:14 Pulse Oximetry (%) 95 03/21/17 11:14 Temperature 98.6 F 03/21/17 11:14 Pulse Rate 93 H 03/21/17 16:00 Respiratory Rate 16 03/21/17 11:14 Blood Pressure 134/88 03/21/17 16:00 Pulse Oximetry (%) 93 03/21/17 16:00 Medical Decision Making - MDM Narrative Medical decision making narrative: Patient's MRI is showing increasing inflammation and phlegmon formation without any drainable abscess. Hospitalist will plan to admit the patient to the hospital and change his antibiotic. - Lab Data Lab results reviewed: Yes I reviewed the patient's lab results. Result diagrams: 03/21/17 11:40 03/21/17 11:40 Lab Results 03/21/17 03/21/17 03/21/17 Range/Units 11:40 11:40 13:00 WBC 8.8 (4.5-11.0) K/mcL RBC 3.56 L (4.50-5.90) M/mcL Hgb 10.8 L (13.5-16.5) g/dL Hct 31.9 L (41.0-55.0) % MCV 89.6 (80.0-100.0) fL MCH 30.4 (26.0-34.0) pg MCHC 33.9 (31.0-36.0) g/dL RDW 12.8 (11.5-14.5) % Plt Count 377 (140-440) K/mcL MPV 8.8 (7.4-10.4) fL Gran % 79.9 H (38.0-78.0) % Lymph % (Auto) 8.0 L (15.5-49.0) % [place] % (Auto) 10.2 (1.0-12.0) % Eos % (Auto) 1.6 (0.0-7.0) % Baso % (Auto) 0.3 (0.0-2.0) % Gran # 7.0 (1.8-8.0) K/mcL Lymph # (Auto) 0.7 L (1.5-4.8) K/mcL [place] # (Auto) 0.9 (0.1-0.9) K/mcL Eos # (Auto) 0.1 (0.0-0.7) K/mcL Baso # (Auto) 0 (0.0-0.3) K/mcL Sodium 135 (133-145) mmol/L Potassium 3.9 (3.3-5.1) mmol/L Chloride 95 L (96-108) mmol/L Carbon Dioxide 25 (22-30) mmol/L Anion Gap 15.0 (8-16) BUN 9 (8-23) mg/dl Creatinine 0.6 L (0.7-1.2) mg/dl GFR Calculation 101 Glucose 112 H (70-105) mg/dL Calcium 9.8 (8.6-10.4) mg/dl Total Bilirubin 0.3 (0.0-1.0) mg/dL AST 26 (0-37) U/l ALT 14 (0-40) U/l Alkaline Phosphatase 119 H (39-117) U/L C-React Prot High Sens 221.1 H (1.0-3.0) mg/L Total Protein 7.3 (5.9-8.4) gm/dL Albumin 3.5 (3.2-5.2) gm/dL Globulin 3.8 H (2.2-3.7) gm/dL Albumin/Globulin Ratio 0.9 L (1.0-2.3) Urine Color Yellow Urine Appearance Hazy Urine pH 7.0 (5.0-9.0) Ur Specific [place] 1.010 (1.000-1.035) Urine Protein Neg (NEG) mg/dL Urine Glucose (UA) Negative (NEG) mg/dL Urine Ketones Neg (NEG) mg/dL Urine Occult Blood Neg (<0.03) mg/dL Urine Nitrate Neg (NEG) Urine Bilirubin Neg (NEG) mg/dL Urine Urobilinogen Neg (NEG) mg/dL Ur Leukocyte Esterase Neg (NEG) /uL Ur Culture Indicated? No - Radiology Data Radiology results reviewed: Yes I reviewed the patient's radiology results. Disposition Pt seen by AURICULOTHERAPIST/PA only: No Clinical Impression: Discitis, unspecified, lumbar region, Septic discitis of lumbar region, Osteomyelitis due to Staphylococcus aureus Disposition: Xfer As Inpt ([facility]) Condition: Fair Referrals: Annabelle Lee, DO [Primary Care Provider] - Time of Disposition: 16:23
[2017-03-21 12:21] LABS: Basophils # (Auto) 0 K/mcL (0.0-0.3); Basophils % (Auto) 0.3 % (0.0-2.0); Eosinophils # (Auto) 0.1 K/mcL (0.0-0.7); Eosinophils % (Auto) 1.6 % (0.0-7.0); Granulocytes % (Auto) 79.9 % (38.0-78.0); Lymphocytes # (Auto) 0.7 K/mcL (1.5-4.8); Mean Cell Volume 89.6 fL (80.0-100.0); Mean Corpuscular HGB Conc 33.9 g/dL (31.0-36.0); Mean Corpuscular Hemoglobin 30.4 pg (26.0-34.0); Monocytes # (Auto) 0.9 K/mcL (0.1-0.9); Monocytes % (Auto) 10.2 % (1.0-12.0); Platelet Count 377 K/mcL (140-440); RBC 3.56 M/mcL (4.50-5.90); Red Cell Distribution Width 12.8 % (11.5-14.5)
[2017-03-21 12:32] LABS: ALT/SGPT 14 U/l (0-40); Albumin 3.5 gm/dL (3.2-5.2); Albumin/Globulin Ratio 0.9 (1.0-2.3); Alkaline Phosphatase 119 U/L (39-117); Blood Urea Nitrogen 9 mg/dl (8-23)
[2017-03-21 12:44] LABS: CRP,High Sensitivity 221.1 mg/L (1.0-3.0)
[2017-03-21] MEDS: HYDROmorphone 2 MG/ML SYRINGE IV PRN ×2 (13:00→16:21)
[2017-03-21 13:28] LABS: Appearance,Urine HAZY; Bilirubin,Urine NEG (NEG); Color,Urine YELLOW; Glucose,Urine (UA) NEGATIVE (NEG); Leukocyte Esterase,Urine NEG /uL (NEG); Nitrate,Urine NEG (NEG); Protein,Urine NEG (NEG); Urine Blood NEG mg/dL (<0.03); Urobilinogen,Urine NEG (NEG)
--- NOTE | 2017-03-21 16:24 | Magnetic Resonance Report ---
History: Follow-up discitis and osteomyelitis after antibiotic therapy Technique: Multiplanar imaging was performed using multiple pulse sequences. Gadolinium contrast was injected and postcontrast sagittal and axial T1-weighted views were obtained. Findings: There is generalized inflammation throughout the body of L3. There is also mild involvement beneath the inferior endplate of the L2 vertebra. There is residual discitis at the L2-3 level with a band of increased signal in the nucleus pulposus. These regions of inflammation enhance with contrast. There is also a phlegmon anterior and lateral to the L2 and L3 vertebra. The inflammation extends into the psoas muscles bilaterally. There is also a band of inflamed soft tissues in the ventral epidural space posterior to the L2-3 disc extending to the mid body of L3. This is causing mild central canal stenosis. The inflammation in the psoas muscles has become worse since 03/06/17. At the time of the prior exam there appeared to be two small abscess collections located at the interface of the psoas muscles and the vertebral body. These now blend in with the surrounding severe cellulitis. No drainable abscess pocket is identified. There is stable moderately severe spinal canal stenosis at L3-4 due to bulging disc and arthritis in the facets and hypertrophy of ligamentum flavum. There are Schmorl's nodes involving the superior and inferior endplates of L4. There are seen on today's study since there is less motion artifact. There is some enhancement along the periphery of the Schmorl's nodes, which suggests active inflammatory response. Impression: Worsening discitis and osteomyelitis at L2 and L3 and worsening phlegmon surrounding the spine at this level, extending into the adjacent psoas muscles. Stable moderately severe spinal canal stenosis at L3-4 due to degenerative changes Dr. Robles was called with the results Interpreted and Authenticated by: Mitch Peraza 03/21/17
[2017-03-21 16:57] LABS: C-Reactive Protein 19.4 mg/dl (0.0-0.8)
--- NOTE | 2017-03-21 17:17 | Internal Med History&Physical ---
Medical - H&P: HPI Patient information: Note initiated : 03/21/17 at 5:10 pm Service Date, if different from initiated Date: [] Patient: Cesar Nassar 71 y/o M admitted on for Weakness. Chief Complaint: [] History of present illness: Mr. Nassar is a 71 year old Male with h/o vertebral osteomyelitis/ discitis, possible abscess, presents to the Er for worsening b ack pain x 1 day The patient was recently discharged from this facility after being diagnosed with vertebral osteomyelitis, diskitis, the patient had MSSA bactermia as well as MSSA aspirate from verterbral bx, the patient was placed on Anceph 2gms q8hrs via cad pump. As he did not have any neurological complications surgery was not contemplated but Dr Sol did follow the patient on a regular basis. The patient pain control had always been an issue, and the patient was needing IV pain medications during the hospital stay, he was eventually discharged on po dilaudid, methacarbamol. He was seen outpatient by his PCP and spine surgery ,and thep atient was feeling he was stable. His pain regime was chnaged by his PCP, he is also on valium now for muscle relaxation, and anxiety. He was placed on fentanyl patch and dilaudid po cut to 2mg q4hrs prn. Yesterday the patient noted an increase in his pain, overnight he notes he was not feeling well, has some chills and feels cold. He is more tired and fatigued and therefore presented to the hospital for further management. In the ER his lab work up initially was well, his MRI shows worsening of osteomyelitis/ phelgom since admission. It seems his CRP is also trending up, the patient ESR is pending. I reviewed his Case with Dr Sol who continues to believe that he is a non operative candidate and needs medical management. He will be admitted to the hospital for ongoing vertebral osteomeylitis as well as inadequate pain control. The patient denies any other complaints, he has some constipation and belly fullness, he admits to juliette lower extermity weakness, no sensory loss. All systems: reviewed and no additional remarkable complaints except as stated ( as per HPI) Medical - H&P: PMH Medical history: Medical History (Last Reviewed 03/20/17 @ 18:56 by Annabelle Lee DO) Strain of lumbar region (Acute) Thoracic back pain (Acute) Septic discitis of lumbar region (Acute) Pressure ulcer of foot, stage 2 (Acute) Hospital discharge follow-up (Acute) Discitis, unspecified, lumbar region (Acute) Osteomyelitis due to Staphylococcus aureus (Acute) Back pain (Acute) Rosacea (Chronic) COPD (chronic obstructive pulmonary disease) (Chronic) Wellness examination (Chronic) History of tobacco abuse (Chronic) Joint pain (Chronic) Hyperlipidemia (Chronic) Hypertension, essential (Chronic) Irregular heart beat (Chronic ~2006) Lung disorder (Chronic) Effusion, right knee (Acute) Rosacea (Chronic) Surgical history: Past Surgical History (Last Reviewed 03/20/17 @ 18:56 by Annabelle Lee DO) H/O rotator cuff surgery (Chronic) History of total left knee replacement (Chronic) Hx of appendectomy (Chronic) S/P herniorrhaphy (Chronic) Status post right partial knee replacement (Chronic) Pertinent family history: Family History (Last Reviewed 03/20/17 @ 18:56 by Annabelle Lee DO) Father Arthritis Diabetes Sister Breast cancer Medical - H&P: Meds Home Medications Medication Instructions Recorded Confirmed Type Ascorbate Calcium [Vitamin C] 500 mg PO QDAY 04/23/15 03/15/17 History Aspirin [Ecotrin] 81 mg PO QDAY 04/23/15 03/15/17 History Fenofibrate,Micronized 134 mg PO QDAY 04/23/15 03/15/17 History [Fenofibrate] Losartan/Hydrochlorothiazide 1 each PO QDAY 04/23/15 03/15/17 History [Losartan-Hctz 100-25 mg Tab] Rosuvastatin Calcium [Crestor] 5 mg PO HS 04/23/15 03/15/17 History amitriptyline 10 mg tablet 20 mg PO HS tab 02/08/17 03/15/17 History amlodipine 10 mg tablet 10 mg PO QDAY 02/08/17 03/15/17 History ipratropium-albuterol 18 mcg-103 spray INHALATION 02/08/17 03/15/17 History mcg/actuation aerosol inhaler Acetaminophen [Tylenol] 1,000 mg PO Q6 #240 tab 03/11/17 03/15/17 Rx HYDROmorphone HCL [Dilaudid] 4 mg PO Q4HP PRN #60 tab 03/11/17 03/15/17 Rx Lidocaine [Lidoderm] 1 patch TOPICAL DAILY@1000 #30 03/11/17 03/15/17 Rx patch ceFAZolin [Ancef] 2 gm IV Q8H #114 vial 03/11/17 03/15/17 Rx Naproxen 500 mg PO BID #30 tab 03/12/17 03/15/17 Rx diazepam 5 mg tablet 5 mg PO TIDP PRN #60 tab 03/15/17 03/15/17 Rx methocarbamol 750 mg tablet 750 mg PO TID PRN #60 tab 03/15/17 03/15/17 Rx fentanyl 50 mcg/hr transdermal 1 patch TRANSDERMA Q72H #10 each 03/16/17 Rx patch Allergies Allergy/AdvReac Type Severity Reaction Status Date / Time No Known Drug Allergies Allergy Verified 03/21/17 11:17 Medical - H&P: Exam - Constitutional Vitals: Temp Pulse Resp BP Pulse Ox 98.6 F 92 H 16 147/88 94 03/21/17 11:14 03/21/17 16:30 03/21/17 11:14 03/21/17 16:30 03/21/17 16:30 Exam: GENERAL: The patient is a well-developed, well-nourished in no apparent distress. Is alert and oriented x3. VITAL SIGNS: Reviewed and as noted elsewhere. HEENT: Head is normocephalic and atraumatic. Extraocular muscles are intact. Pupils are equal, round, and reactive to light. Nares appeared normal. Mouth appears any without lesions. Mucous membranes are moist. NECK: Normal to inspection, Supple, No lymphadenopathy or thyromegaly. LUNGS: Air entry equal on both sides, no wheezing, crackles or rhonchi noted. No accessory muscles of respiration HEART: Regular rate and rhythm normal, S1 and S2 heard, no Gallop, S3 or Rub Noted, No Gross murmur heard. ABDOMEN: Soft, nontender, mild distention, Positive bowel sounds. No hepatosplenomegaly was noted. EXTREMITIES: No cyanosis, clubbing, rash, lesions or edema. NEUROLOGIC: Cranial nerves II through XII are grossly intact. Motor and Sensory System Grossly Intact, lower extemity juliette 4/5, no sensory loss, no bowel bladder incontinence reported. lower spinal tenderness present. PSYCHIATRIC: Normal affect, Normal Mood. Appropriate Behavior. SKIN: No ulceration or wounds noted, No jaundice, No rash noted. Medical - H&P: Reslt - Labs CBC & Chem 7: 03/21/17 11:40 03/21/17 11:40 Labs: Short CBC 03/21/17 Range/Units 11:40 WBC 8.8 (4.5-11.0) K/mcL Hgb 10.8 L (13.5-16.5) g/dL Hct 31.9 L (41.0-55.0) % Plt Count 377 (140-440) K/mcL BMP 03/21/17 11:40 Sodium 135 Potassium 3.9 Chloride 95 L Carbon Dioxide 25 BUN 9 Creatinine 0.6 L Glucose 112 H Calcium 9.8 Liver Function 03/21/17 Range/Units 11:40 Total Bilirubin 0.3 (0.0-1.0) mg/dL AST 26 (0-37) U/l ALT 14 (0-40) U/l Alkaline Phosphatase 119 H (39-117) U/L Albumin 3.5 (3.2-5.2) gm/dL Urine 03/21/17 Range/Units 13:00 Urine Color Yellow Urine Appearance Hazy Urine pH 7.0 (5.0-9.0) Ur Specific [place] 1.010 (1.000-1.035) Urine Protein Neg (NEG) mg/dL Urine Glucose (UA) Negative (NEG) mg/dL Medical - H&P: A/P - Narrative A/P Narrative: A/P Discitis/ Vertebral osteomyelitic: patient still has pain, MRI shows worsening phlegmon, Dr Sol reviewed the films and did not feel need for surgery. Plan to repeat blood cultures, check esr, procalcitonin. CRP is trending upwards. Patient has been compliant with anceph. Will switch to naficillin 2gms q4hrs for now. He has a picc line. Once I have the results, will discuss case with Infectious disease in [place] to see if he needs to be transferred up there for further evaluation. Back pain: Due to above, on fentanyl 50 patch, increase po dilaudid to 4mg q4hrs , resume valium, IV methacarbamaol and jess tylenol for now. monitor and adjust medications as needed. Constipation: Miralax for now. COPD: DUonebs q6 for now, HTN : BP stable, resume norvasc once home meds verified. dvt hep sq regular diet Full code. Social History - Social History marital status: - Tobacco smoking status: Former smoker - Alcohol alcohol intake frequency: 0-2 drinks per day - Substance use substance use type: does not use
[2017-03-21] MEDS ORDERED: NALOXONE HCL 0.4 MG/ML VIAL IV PRN (17:29)
[2017-03-21] MEDS: LACTATED RINGERS 1,000 ML IV SCH (18:09)
[2017-03-21] MEDS: NAFCILLIN 2 GM in 0.9 % SODIUM CHLORIDE 50 ML IV SCH ×2 (18:09→20:42)
[2017-03-21] MEDS: METHOCARBAMOL 1,000 MG/10 ML VIAL IV SCH (18:09)
[2017-03-21] MEDS: ACETAMINOPHEN 325 MG TABLET PO SCH (18:09)
[2017-03-21] MEDS: IPRATROPIUM/ALBUTEROL 3 ML AMPUL.NEB NEB SCH (19:08)
[2017-03-21] MEDS: fentaNYL 50 MCG PATCH TOPICAL SCH (19:30)
[2017-03-21] MEDS: HYDROmorphone 2 MG TABLET PO PRN (20:08)
[2017-03-21] MEDS: RIFAMPIN 300 MG CAPSULE PO SCH (20:08)
[2017-03-21] MEDS: POLYETHYLENE GLYCOL 3350 17 GM PACKET PO SCH (20:42)
[2017-03-21] MEDS: DOCUSATE SODIUM 100 MG CAPSULE PO SCH (20:44)
[2017-03-21] MEDS: HEPARIN 5,000 UNIT/ML VIAL SQ SCH (20:45)
[2017-03-21] MEDS: 0.9 % SODIUM CHLORIDE 10 ML SYRINGE IV SCH (20:46)
[2017-03-22] MEDS: METHOCARBAMOL 1,000 MG/10 ML VIAL IV SCH ×5 (00:39→23:47)
[2017-03-22] MEDS: ACETAMINOPHEN 325 MG TABLET PO SCH ×5 (00:40→23:47)
[2017-03-22] MEDS: NAFCILLIN 2 GM in 0.9 % SODIUM CHLORIDE 50 ML IV SCH ×6 (00:42→20:40)
[2017-03-22] MEDS: IPRATROPIUM/ALBUTEROL 3 ML AMPUL.NEB NEB SCH ×4 (00:42→19:19)
[2017-03-22] MEDS: HYDROmorphone 2 MG TABLET PO PRN ×5 (04:32→20:40)
[2017-03-22 05:24] LABS: Basophils # (Auto) 0 K/mcL (0.0-0.3); Basophils % (Auto) 0.4 % (0.0-2.0); Eosinophils # (Auto) 0.1 K/mcL (0.0-0.7); Eosinophils % (Auto) 1.4 % (0.0-7.0); Granulocytes % (Auto) 74.8 % (38.0-78.0); Lymphocytes % (Auto) 11.6 % (15.5-49.0); Mean Cell Volume 89.1 fL (80.0-100.0); Mean Corpuscular HGB Conc 33.8 g/dL (31.0-36.0); Mean Corpuscular Hemoglobin 30.1 pg (26.0-34.0); Monocytes % (Auto) 11.8 % (1.0-12.0); Platelet Count 346 K/mcL (140-440); RBC 3.24 M/mcL (4.50-5.90); Red Cell Distribution Width 12.7 % (11.5-14.5)
[2017-03-22 06:03] LABS: ALT/SGPT 14 U/l (0-40); Albumin/Globulin Ratio 0.8 (1.0-2.3); Alkaline Phosphatase 129 U/L (39-117); Bilirubin,Direct < 0.2 mg/dL (0.0-0.3); Blood Urea Nitrogen 10 mg/dl (8-23); Gamma Glutamyl Transpeptidase 110 U/L (8-61); Magnesium 1.8 mg/dL (1.6-2.5); Uric Acid 3.1 mg/dL (2.5-8.0)
[2017-03-22] MEDS: 0.9 % SODIUM CHLORIDE 10 ML SYRINGE IV SCH ×3 (06:06→20:41)
[2017-03-22] MEDS: LACTATED RINGERS 1,000 ML IV SCH (07:46)
[2017-03-22] MEDS: RIFAMPIN 300 MG CAPSULE PO SCH ×2 (07:46→20:08)
[2017-03-22] MEDS: DOCUSATE SODIUM 100 MG CAPSULE PO SCH ×2 (08:28→20:40)
[2017-03-22] MEDS: HEPARIN 5,000 UNIT/ML VIAL SQ SCH ×2 (08:28→20:41)
--- NOTE | 2017-03-22 08:37 | XRay Report ---
HISTORY: Reason for Exam:weakness FINDINGS: There is a stable thin linear band of scar or discoid atelectasis at the left costophrenic sulcus. The lungs are otherwise clear and normally expanded. The heart size and pulmonary vasculature are normal. No abnormality seen within the mediastinum or pura. The PICC line remains well positioned in the superior vena cava. There has been no significant change since 03/08/17. IMPRESSION: No acute abnormality Interpreted and Authenticated by: Mitch Peraza 03/22/17
--- NOTE | 2017-03-22 09:22 | Internal Med Progress Note ---
Medical - PN: Subj Patient information: Note initiated : 03/22/17 at 9:20 am Service Date, if different from initiated Date: [] Patient: Cesar Nassar 71 y/o M admitted on 03/21/17 for Weakness. Chief Complaint: [] Interval history: Mr. Nassar is a 71 year old Male with h/o vertebral osteomyelitis/ discitis, possible abscess, presents to the Er for worsening b ack pain x 1 day The patient was recently discharged from this facility after being diagnosed with vertebral osteomyelitis, diskitis, the patient had MSSA bactermia as well as MSSA aspirate from verterbral bx, the patient was placed on Anceph 2gms q8hrs via cad pump. As he did not have any neurological complications surgery was not contemplated but Dr Sol did follow the patient on a regular basis. The patient pain control had always been an issue, and the patient was needing IV pain medications during the hospital stay, he was eventually discharged on po dilaudid, methacarbamol. He was seen outpatient by his PCP and spine surgery ,and thep atient was feeling he was stable. His pain regime was chnaged by his PCP, he is also on valium now for muscle relaxation, and anxiety. He was placed on fentanyl patch and dilaudid po cut to 2mg q4hrs prn. Yesterday the patient noted an increase in his pain, overnight he notes he was not feeling well, has some chills and feels cold. He is more tired and fatigued and therefore presented to the hospital for further management. In the ER his lab work up initially was well, his MRI shows worsening of osteomyelitis/ phelgom since admission. It seems his CRP is also trending up, the patient ESR is pending. I reviewed his Case with Dr Sol who continues to believe that he is a non operative candidate and needs medical management. He will be admitted to the hospital for ongoing vertebral osteomeylitis as well as inadequate pain control. The patient denies any other complaints, he has some constipation and belly fullness, he admits to juliette lower extermity weakness, no sensory loss. mar 22 patient seen examined no acute overnight events pain better esr, crp still high today compared to yesterday on iv naficillin, continue same reviewed case with ID, consider adding rifampin Reviewed with patient risk of using rifampin, he is ok with using same. Pertinent ROS: Denies headache, dizziness Denies chest pain, palpitations Denies cough or shortness of breath Denies abdominal pain, nausea or vomiting. - Constitutional Vitals: Vital Signs Temp Pulse Resp BP Pulse Ox 98.8 F 89 16 128/76 92 03/22/17 07:28 03/22/17 07:15 03/22/17 07:28 03/22/17 07:28 03/22/17 07:28 Period Temp Pulse Resp BP Sys/Cote Pulse Ox Last 24 Hr 97.7 F-98.8 F 38-100 14-18 117-167/67-116 80-97 Intake and Output 03/21/17 03/22/17 03/22/17 21:59 05:59 13:59 Intake Total 1100 / 1100 500 / 500 1000 / 1000 Output Total 50 / 50 900 / 900 425 / 425 Balance 1050 / 1050 -400 / -400 575 / 575 Weight 190 lb Intake & Output: Intake & Output 03/21/17 03/22/17 03/22/17 21:59 05:59 13:59 Intake Total 1100 / 1100 500 / 500 1000 / 1000 Output Total 50 / 50 900 / 900 425 / 425 Balance 1050 / 1050 -400 / -400 575 / 575 Weight 190 lb Intake: IV 1100 / 1100 50 / 50 1000 / 1000 Sodium Chloride 0.9% 1,000 ml @ 1000 / 1000 Wide Open IV BOLUS ONE Rx#: [id number] Lactated Ringers 1,000 ml @ 75 1000 / 1000 mls/hr IV .[id number] [facility] Rx#: [id number] Nafcillin 2 gm In Sodium 100 / 100 50 / 50 Chloride 0.9% 50 ml @ 100 mls/ hr IV Q4H [facility] Rx#:[id number] Oral 450 / 450 Output: Void Amount 50 / 50 900 / 900 425 / 425 Other: # Voids 1 Exam: Constitutional; Afebrile, cooperative, alert, not in distress. Eyes- No icterus, , No periorbital swelling Ears- Ext ear normal, hearing normal to conversation. Neck- Midline trachea, supple Respiratory system: Air Entry equal on both sides, No crackles or wheezing, no rhonchi. CVS- Rate rhythm regular, S1,S2 heard, no gallop, no rub. 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 Medical - PN: Obj Da - Labs CBC & Chem 7: 03/22/17 04:00 03/22/17 04:00 Labs: Abnormal Lab Results 03/22/17 03/22/17 03/22/17 04:00 04:00 04:00 RBC Hgb Hct Gran % Lymph % (Auto) Lymph # (Auto) [place] # (Auto) ESR > 120 H Chloride Creatinine Glucose 109 H GGT 110 H Alkaline Phosphatase 129 H C-Reactive Protein 21.6 H C-React Prot High Sens Albumin 3.0 L Globulin Albumin/Globulin Ratio 0.8 L 03/22/17 03/21/17 03/21/17 04:00 11:40 11:40 RBC 3.24 L Hgb 9.7 L Hct 28.8 L Gran % Lymph % (Auto) 11.6 L Lymph # (Auto) 1.0 L [place] # (Auto) 1.0 H ESR 93 H Chloride Creatinine Glucose GGT Alkaline Phosphatase C-Reactive Protein 19.4 H C-React Prot High Sens Albumin Globulin Albumin/Globulin Ratio 03/21/17 03/21/17 11:40 11:40 RBC 3.56 L Hgb 10.8 L Hct 31.9 L Gran % 79.9 H Lymph % (Auto) 8.0 L Lymph # (Auto) 0.7 L [place] # (Auto) ESR Chloride 95 L Creatinine 0.6 L Glucose 112 H GGT Alkaline Phosphatase 119 H C-Reactive Protein C-React Prot High Sens 221.1 H Albumin Globulin 3.8 H Albumin/Globulin Ratio 0.9 L Meds: Medications Acetaminophen (Tylenol) 650 mg PO Q6 [facility] Last Admin: 03/22/17 06:05 Dose: 650 mg Albuterol/Ipratropium (Duoneb) 3 ml NEB Q6HRT [facility] Last Admin: 03/22/17 07:10 Dose: 3 ml Docusate Sodium (Colace) 100 mg PO BID [facility] Last Admin: 03/22/17 08:28 Dose: 100 mg Fentanyl (Duragesic) 50 mcg TOPICAL Q72H [facility] Last Admin: 03/21/17 19:30 Dose: Not Given Heparin Sodium (Porcine) (Heparin) 5,000 unit SQ Q12 [facility] Last Admin: 03/22/17 08:28 Dose: 5,000 unit Hydromorphone HCl (Dilaudid) 4 mg PO Q4HP PRN PRN Reason: PAIN LEVEL 3-6 Last Admin: 03/22/17 08:28 Dose: 4 mg Lactated Ringer's (Lactated Ringers) 1,000 mls @ 75 mls/hr IV .[id number] [facility] Stop: 03/23/17 09:28 Last Admin: 03/22/17 07:46 Dose: 75 mls/hr Nafcillin Sodium 2 gm/ Sodium (Chloride) 50 mls @ 100 mls/hr IV Q4H [facility] Last Admin: 03/22/17 04:33 Dose: 100 mls/hr Methocarbamol (Robaxin) 750 mg IV Q6H [facility] Last Admin: 03/22/17 06:05 Dose: 750 mg Naloxone HCl (Narcan) 0.1 mg IV Q2MIN PRN PRN Reason: Opiate Reversal Ondansetron HCl (Zofran) 4 mg IV Q6HP PRN PRN Reason: Nausea And Vomiting Polyethylene Glycol (Miralax) 17 gm PO HS [facility] Last Admin: 03/21/17 20:42 Dose: 17 gm Rifampin (Rifampin) 300 mg PO BID@0700,2000 [facility] Last Admin: 03/22/17 07:46 Dose: 300 mg Sodium Chloride (Saline Flush) 10 ml IV Q8 [facility] Last Admin: 03/22/17 06:06 Dose: Not Given Medical - PN: A/P - Time Spent With Patient Total time spent is greater than 50% in coordination of care (as documented) at patient's floor/unit and/or counseling patient: - Narrative A/P Narrative: A/P Discitis/ Vertebral osteomyelitic: MRI shows worsening inflammation, reviwed results with Dr Sol, not surgical candidate yet, ID in [place] advised continuing IV antibiotics, to consider adding rifampin, which is done. wait and see if patient responds to same. Back pain: Due to above, on fentanyl 50 patch, increase po dilaudid to 4mg q4hrs , hold valium for now, IV methacarbamaol and jess tylenol for now. monitor and adjust medications as needed. Constipation: Miralax for now. COPD: DUonebs q6 for now, HTN : BP stable, resume norvasc once home meds verified. dvt hep sq regular diet Full code.
[2017-03-22] MEDS: FENOFIBRATE 43 MG CAPSULE PO SCH (09:43)
[2017-03-22] MEDS: HYDROCHLOROTHIAZIDE 25 MG TABLET PO SCH (09:44)
[2017-03-22] MEDS: ASPIRIN 81 MG TAB.CHEW PO SCH (09:44)
[2017-03-22] MEDS: amLODIPine 10 MG TABLET PO SCH (09:44)
[2017-03-22] MEDS: LOSARTAN 50 MG TABLET PO SCH (09:44)
[2017-03-22] MEDS: AMITRIPTYLINE 10 MG TABLET PO SCH (20:40)
[2017-03-22] MEDS: ATORVASTATIN 20 MG TABLET PO SCH (20:40)
[2017-03-22] MEDS: POLYETHYLENE GLYCOL 3350 17 GM PACKET PO SCH (20:40)
[2017-03-22] MEDS ORDERED: ROSUVASTATIN CALCIUM 5 MG PO SCH (21:00)
[2017-03-23] MEDS: IPRATROPIUM/ALBUTEROL 3 ML AMPUL.NEB NEB SCH ×4 (00:57→18:55)
[2017-03-23] MEDS: LACTATED RINGERS 1,000 ML IV SCH (00:57)
[2017-03-23] MEDS: NAFCILLIN 2 GM in 0.9 % SODIUM CHLORIDE 50 ML IV SCH ×6 (00:57→21:48)
[2017-03-23] MEDS: HYDROmorphone 2 MG TABLET PO PRN ×4 (02:45→20:31)
[2017-03-23] MEDS: 0.9 % SODIUM CHLORIDE 10 ML SYRINGE IV SCH ×3 (04:29→21:49)
[2017-03-23 05:58] LABS: Basophils # (Auto) 0 K/mcL (0.0-0.3); Basophils % (Auto) 0.5 % (0.0-2.0); Eosinophils # (Auto) 0.2 K/mcL (0.0-0.7); Eosinophils % (Auto) 2.4 % (0.0-7.0); Granulocytes % (Auto) 73.2 % (38.0-78.0); Lymphocytes # (Auto) 0.9 K/mcL (1.5-4.8); Lymphocytes % (Auto) 12.7 % (15.5-49.0); Mean Cell Volume 89.3 fL (80.0-100.0); Mean Corpuscular HGB Conc 33.6 g/dL (31.0-36.0); Monocytes # (Auto) 0.8 K/mcL (0.1-0.9); Monocytes % (Auto) 11.2 % (1.0-12.0); Platelet Count 351 K/mcL (140-440); RBC 3.13 M/mcL (4.50-5.90); Red Cell Distribution Width 13.3 % (11.5-14.5)
[2017-03-23] MEDS: METHOCARBAMOL 1,000 MG/10 ML VIAL IV SCH ×4 (06:02→23:55)
[2017-03-23] MEDS: ACETAMINOPHEN 325 MG TABLET PO SCH ×4 (06:02→23:50)
[2017-03-23 06:07] LABS: ALT/SGPT 12 U/l (0-40); Albumin 2.9 gm/dL (3.2-5.2); Albumin/Globulin Ratio 0.8 (1.0-2.3); Alkaline Phosphatase 122 U/L (39-117); Bilirubin,Direct < 0.2 mg/dL (0.0-0.3); Blood Urea Nitrogen 9 mg/dl (8-23); Gamma Glutamyl Transpeptidase 102 U/L (8-61); Magnesium 1.7 mg/dL (1.6-2.5); Uric Acid 2.4 mg/dL (2.5-8.0)
[2017-03-23] MEDS: RIFAMPIN 300 MG CAPSULE PO SCH ×2 (07:43→19:43)
[2017-03-23] MEDS ORDERED: LOSARTAN/HCTZ 100/25 TABLET PO SCH (09:00)
[2017-03-23] MEDS: DOCUSATE SODIUM 100 MG CAPSULE PO SCH ×2 (10:11→20:37)
[2017-03-23] MEDS: amLODIPine 10 MG TABLET PO SCH (10:11)
[2017-03-23] MEDS: HEPARIN 5,000 UNIT/ML VIAL SQ SCH ×2 (10:12→20:31)
[2017-03-23] MEDS: FENOFIBRATE 43 MG CAPSULE PO SCH (10:12)
[2017-03-23] MEDS: LOSARTAN 50 MG TABLET PO SCH (10:12)
[2017-03-23] MEDS: HYDROCHLOROTHIAZIDE 25 MG TABLET PO SCH (10:12)
[2017-03-23] MEDS: ASPIRIN 81 MG TAB.CHEW PO SCH (10:12)
--- NOTE | 2017-03-23 10:55 | Internal Med Progress Note ---
Medical - PN: Subj Patient information: Note initiated : 03/23/17 at 10:53 am Service Date, if different from initiated Date: [] Patient: Cesar Nassar 71 y/o M admitted on 03/21/17 for Weakness. Chief Complaint: [] Interval history: Mr. Nassar is a 71 year old Male with h/o vertebral osteomyelitis/ discitis, possible abscess, presents to the Er for worsening b ack pain x 1 day The patient was recently discharged from this facility after being diagnosed with vertebral osteomyelitis, diskitis, the patient had MSSA bactermia as well as MSSA aspirate from verterbral bx, the patient was placed on Anceph 2gms q8hrs via cad pump. As he did not have any neurological complications surgery was not contemplated but Dr Sol did follow the patient on a regular basis. The patient pain control had always been an issue, and the patient was needing IV pain medications during the hospital stay, he was eventually discharged on po dilaudid, methacarbamol. He was seen outpatient by his PCP and spine surgery ,and thep atient was feeling he was stable. His pain regime was chnaged by his PCP, he is also on valium now for muscle relaxation, and anxiety. He was placed on fentanyl patch and dilaudid po cut to 2mg q4hrs prn. Yesterday the patient noted an increase in his pain, overnight he notes he was not feeling well, has some chills and feels cold. He is more tired and fatigued and therefore presented to the hospital for further management. In the ER his lab work up initially was well, his MRI shows worsening of osteomyelitis/ phelgom since admission. It seems his CRP is also trending up, the patient ESR is pending. I reviewed his Case with Dr Sol who continues to believe that he is a non operative candidate and needs medical management. He will be admitted to the hospital for ongoing vertebral osteomeylitis as well as inadequate pain control. The patient denies any other complaints, he has some constipation and belly fullness, he admits to juliette lower extermity weakness, no sensory loss. mar 22 patient seen examined no acute overnight events pain better esr, crp still high today compared to yesterday on iv naficillin, continue same reviewed case with ID, consider adding rifampin Reviewed with patient risk of using rifampin, he is ok with using same. Mar 23 patient seen examined no acute overnight issues patient pain worse this AM, but on oral meds and prn IV muscle relaxant CRP down slightly today, esr remains elevated > 120 continue IV abx for now, if trend is not downward , then will have to revisit the idea of decreasing the infectious burden. Pertinent ROS: Denies headache, dizziness Denies chest pain, palpitations Denies cough or shortness of breath Denies abdominal pain, nausea or vomiting. - Constitutional Vitals: Vital Signs Temp Pulse Resp BP Pulse Ox 97.7 F 82 16 121/68 93 03/23/17 07:53 03/23/17 07:53 03/23/17 07:53 03/23/17 07:53 03/23/17 07:53 Period Temp Pulse Resp BP Sys/Cote Pulse Ox Last 24 Hr 97.7 F-99.3 F 82-91 16-20 117-134/67-80 91-98 Intake and Output 03/22/17 03/23/17 03/23/17 21:59 05:59 13:59 Intake Total 1750 / 1750 750 / 750 Output Total 475 / 475 575 / 575 100 / 100 Balance 1275 / 1275 175 / 175 -100 / -100 Weight 190 lb Intake & Output: Intake & Output 03/22/17 03/23/17 03/23/17 21:59 05:59 13:59 Intake Total 1750 / 1750 750 / 750 Output Total 475 / 475 575 / 575 100 / 100 Balance 1275 / 1275 175 / 175 -100 / -100 Weight 190 lb Intake: IV 1150 / 1150 100 / 100 Lactated Ringers 1,000 ml @ 75 1000 / 1000 mls/hr IV .[id number] [facility] Rx#: [id number] Nafcillin 2 gm In Sodium 150 / 150 100 / 100 Chloride 0.9% 50 ml @ 100 mls/ hr IV Q4H [facility] Rx#:[id number] Oral 600 / 600 650 / 650 Output: Void Amount 475 / 475 575 / 575 100 / 100 Other: Meal Breakfast Percent of Meal Consumed 100% Exam: Constitutional; Afebrile, cooperative, alert, not in distress. Eyes- No icterus, , No periorbital swelling Ears- Ext ear normal, hearing normal to conversation. Neck- Midline trachea, supple Respiratory system: Air Entry equal on both sides, No crackles or wheezing, no rhonchi. CVS- Rate rhythm regular, S1,S2 heard, no gallop, no rub. Abdomen- Soft nontender abdomen, no organomegaly, no tenderness, no guarding or rigidity, MUCK MINER- AOOx3, moving all extremities, no gross focal deficit noted. Medical - PN: Obj Da - Labs CBC & Chem 7: 03/23/17 04:00 03/23/17 04:00 Labs: Abnormal Lab Results 03/23/17 03/23/17 03/23/17 04:00 04:00 04:00 RBC Hgb Hct Gran % Lymph % (Auto) Lymph # (Auto) [place] # (Auto) ESR > 120 H Chloride 95 L Creatinine Glucose 143 H Uric Acid 2.4 L GGT 102 H Alkaline Phosphatase 122 H C-Reactive Protein 19.7 H C-React Prot High Sens Albumin 2.9 L Globulin Albumin/Globulin Ratio 0.8 L 03/23/17 03/22/17 03/22/17 04:00 04:00 04:00 RBC 3.13 L Hgb 9.4 L Hct 28.0 L Gran % Lymph % (Auto) 12.7 L Lymph # (Auto) 0.9 L [place] # (Auto) ESR > 120 H Chloride Creatinine Glucose Uric Acid GGT Alkaline Phosphatase C-Reactive Protein 21.6 H C-React Prot High Sens Albumin Globulin Albumin/Globulin Ratio 03/22/17 03/22/17 03/21/17 04:00 04:00 11:40 RBC 3.24 L Hgb 9.7 L Hct 28.8 L Gran % Lymph % (Auto) 11.6 L Lymph # (Auto) 1.0 L [place] # (Auto) 1.0 H ESR Chloride Creatinine Glucose 109 H Uric Acid GGT 110 H Alkaline Phosphatase 129 H C-Reactive Protein 19.4 H C-React Prot High Sens Albumin 3.0 L Globulin Albumin/Globulin Ratio 0.8 L 03/21/17 03/21/17 03/21/17 11:40 11:40 11:40 RBC 3.56 L Hgb 10.8 L Hct 31.9 L Gran % 79.9 H Lymph % (Auto) 8.0 L Lymph # (Auto) 0.7 L [place] # (Auto) ESR 93 H Chloride 95 L Creatinine 0.6 L Glucose 112 H Uric Acid GGT Alkaline Phosphatase 119 H C-Reactive Protein C-React Prot High Sens 221.1 H Albumin Globulin 3.8 H Albumin/Globulin Ratio 0.9 L Meds: Medications Acetaminophen (Tylenol) 650 mg PO Q6 [facility] Last Admin: 03/23/17 06:02 Dose: 650 mg Albuterol/Ipratropium (Duoneb) 3 ml NEB Q6HRT [facility] Last Admin: 03/23/17 07:10 Dose: 3 ml Amitriptyline HCl (Elavil) 20 mg PO HS [facility] Last Admin: 03/22/17 20:40 Dose: 20 mg Amlodipine Besylate (Norvasc) 10 mg PO QDAY [facility] Last Admin: 03/23/17 10:11 Dose: 10 mg Aspirin (Aspirin) 81 mg PO DAILY [facility] Last Admin: 03/23/17 10:12 Dose: 81 mg Atorvastatin Calcium (Lipitor) 10 mg PO HS [facility] Last Admin: 03/22/17 20:40 Dose: 10 mg Docusate Sodium (Colace) 100 mg PO BID [facility] Last Admin: 03/23/17 10:11 Dose: 100 mg Fenofibrate (Antara) 129 mg PO DAILY [facility] Last Admin: 03/23/17 10:12 Dose: 129 mg Fentanyl (Duragesic) 50 mcg TOPICAL Q72H [facility] Last Admin: 03/21/17 19:30 Dose: Not Given Heparin Sodium (Porcine) (Heparin) 5,000 unit SQ Q12 [facility] Last Admin: 03/23/17 10:12 Dose: 5,000 unit Heparin Sodium (Porcine) (Heparin Flush) 2 ml IV Q12 [facility] Last Admin: 03/23/17 10:13 Dose: 2 ml Hydrochlorothiazide (Oretic) 25 mg PO DAILY [facility] Last Admin: 03/23/17 10:12 Dose: 25 mg Hydromorphone HCl (Dilaudid) 4 mg PO Q4HP PRN PRN Reason: PAIN LEVEL 3-6 Last Admin: 03/23/17 09:13 Dose: 4 mg Nafcillin Sodium 2 gm/ Sodium (Chloride) 50 mls @ 100 mls/hr IV Q4H [facility] Last Admin: 03/23/17 10:14 Dose: 100 mls/hr Losartan Potassium (Cozaar) 100 mg PO DAILY [facility] Last Admin: 12/28/17 10:12 Dose: 100 mg Methocarbamol (Robaxin) 750 mg IV Q6H [facility] Last Admin: 03/23/17 06:02 Dose: 750 mg Naloxone HCl (Narcan) 0.1 mg IV Q2MIN PRN PRN Reason: Opiate Reversal Ondansetron HCl (Zofran) 4 mg IV Q6HP PRN PRN Reason: Nausea And Vomiting Polyethylene Glycol (Miralax) 17 gm PO HS [facility] Last Admin: 03/22/17 20:40 Dose: 17 gm Rifampin (Rifampin) 300 mg PO BID@0700,2000 [facility] Last Admin: 03/23/17 07:43 Dose: 300 mg Sodium Chloride (Saline Flush) 10 ml IV Q8 [facility] Last Admin: 03/23/17 04:29 Dose: 10 ml Medical - PN: A/P - Time Spent With Patient Total time spent is greater than 50% in coordination of care (as documented) at patient's floor/unit and/or counseling patient: - Narrative A/P Narrative: A/P Discitis/ Vertebral osteomyelitic: MRI shows worsening inflammation, reviewed results with Dr Sol, not surgical candidate yet, ID in [place] advised continuing IV antibiotics, to consider adding rifampin, which is done. ESR still high, CRP elevated but slight downward trend today, will monitor. Back pain: Due to above, on fentanyl 50 patch, po dilaudid to 4mg q4hrs, hold valium for now, IV methacarbamaol and [facility] tylenol for now, amitryptiline qhs. monitor and adjust medications as needed. Constipation: Miralax for now. COPD: DUonebs q6 for now, HTN : BP stable, HLD on statin , continue same. dvt hep sq regular diet Full code.
[2017-03-23] MEDS: fentaNYL 50 MCG PATCH TOPICAL SCH (12:43)
[2017-03-23] MEDS: ONDANSETRON 4 MG/2 ML VIAL IV PRN (16:01)
[2017-03-23] MEDS: ATORVASTATIN 20 MG TABLET PO SCH (20:30)
[2017-03-23] MEDS: AMITRIPTYLINE 10 MG TABLET PO SCH (20:31)
[2017-03-23] MEDS: POLYETHYLENE GLYCOL 3350 17 GM PACKET PO SCH (20:37)
[2017-03-24] MEDS: NAFCILLIN 2 GM in 0.9 % SODIUM CHLORIDE 50 ML IV SCH ×2 (01:57→05:31)
[2017-03-24] MEDS: IPRATROPIUM/ALBUTEROL 3 ML AMPUL.NEB NEB SCH ×4 (01:58→18:42)
[2017-03-24] MEDS: HYDROmorphone 2 MG TABLET PO PRN ×5 (04:20→22:02)
[2017-03-24 05:51] LABS: Basophils # (Auto) 0 K/mcL (0.0-0.3); Basophils % (Auto) 0.6 % (0.0-2.0); Eosinophils # (Auto) 0.4 K/mcL (0.0-0.7); Eosinophils % (Auto) 7.2 % (0.0-7.0); Granulocytes % (Auto) 58.6 % (38.0-78.0); Lymphocytes # (Auto) 1.2 K/mcL (1.5-4.8); Mean Cell Volume 89.4 fL (80.0-100.0); Mean Corpuscular Hemoglobin 30.4 pg (26.0-34.0); Monocytes # (Auto) 0.6 K/mcL (0.1-0.9); Monocytes % (Auto) 10.6 % (1.0-12.0); Platelet Count 364 K/mcL (140-440); RBC 3.18 M/mcL (4.50-5.90); Red Cell Distribution Width 13.2 % (11.5-14.5)
[2017-03-24] MEDS: ACETAMINOPHEN 325 MG TABLET PO SCH ×4 (06:02→23:42)
[2017-03-24] MEDS: METHOCARBAMOL 1,000 MG/10 ML VIAL IV SCH ×5 (06:02→23:41)
[2017-03-24 06:07] LABS: ALT/SGPT 9 U/l (0-40); Albumin 2.9 gm/dL (3.2-5.2); Albumin/Globulin Ratio 0.9 (1.0-2.3); Alkaline Phosphatase 118 U/L (39-117); Bilirubin,Direct < 0.2 mg/dL (0.0-0.3); Blood Urea Nitrogen 5 mg/dl (8-23); Gamma Glutamyl Transpeptidase 92 U/L (8-61); Magnesium 1.6 mg/dL (1.6-2.5); Uric Acid 2.4 mg/dL (2.5-8.0)
[2017-03-24] MEDS: 0.9 % SODIUM CHLORIDE 10 ML SYRINGE IV SCH ×3 (07:48→21:30)
[2017-03-24] MEDS: RIFAMPIN 300 MG CAPSULE PO SCH ×2 (07:48→19:43)
[2017-03-24] MEDS: HEPARIN 5,000 UNIT/ML VIAL SQ SCH ×2 (09:04→21:28)
[2017-03-24] MEDS: LOSARTAN 50 MG TABLET PO SCH (09:05)
[2017-03-24] MEDS: amLODIPine 10 MG TABLET PO SCH (09:05)
[2017-03-24] MEDS: ASPIRIN 81 MG TAB.CHEW PO SCH (09:05)
[2017-03-24] MEDS: HYDROCHLOROTHIAZIDE 25 MG TABLET PO SCH (09:05)
[2017-03-24] MEDS: FENOFIBRATE 43 MG CAPSULE PO SCH (09:05)
[2017-03-24] MEDS: DOCUSATE SODIUM 100 MG CAPSULE PO SCH ×2 (09:06→21:29)
--- NOTE | 2017-03-24 10:42 | Orthopedic Consult Note ---
History of Present Illness - [facility] Patient information: Note initiated : 03/24/17 at 10:40 am Service Date, if different from initiated Date: [] Patient: Cesar Nassar 71 y/o M admitted on 03/21/17 for Weakness. Chief Complaint: [left foot wound] Consult date: 03/13/17 Consult reason: other (left foot wound) History of present illness: during previous hospital admission the patient had purulent discharge from the left foot at a graft site. Incision and drainage with resection of bone spurs performed left foot. He is returned to the hospital since and still has stitches and slight wound remaining to his left foot. Stitches were removed at today's visit. He also has dressing changes be done every other day. Review of Systems Constitutional: as per [facility] Medications and Allergies Home Medications Medication Instructions Recorded Confirmed Type Ascorbate Calcium [Vitamin C] 500 mg PO QDAY 04/23/15 03/21/17 History Aspirin [Ecotrin] 81 mg PO QDAY 04/23/15 03/21/17 History Fenofibrate,Micronized 134 mg PO QDAY 04/23/15 03/21/17 History [Fenofibrate] Losartan/Hydrochlorothiazide 1 each PO QDAY 04/23/15 03/21/17 History [Losartan-Hctz 100-25 mg Tab] Rosuvastatin Calcium [Crestor] 5 mg PO HS 04/23/15 03/21/17 History amitriptyline 10 mg tablet 20 mg PO HS tab 02/08/17 03/21/17 History amlodipine 10 mg tablet 10 mg PO QDAY 02/08/17 03/21/17 History ipratropium-albuterol 18 mcg-103 1 spray INHALATION PRN PRN 02/08/17 03/21/17 History mcg/actuation aerosol inhaler Acetaminophen [Tylenol] 1,000 mg PO Q6 #240 tab 03/11/17 03/21/17 Rx Lidocaine [Lidoderm] 1 patch TOPICAL DAILY@1000 #30 03/11/17 03/21/17 Rx patch ceFAZolin [Ancef] 2 gm IV Q8H #114 vial 03/11/17 03/22/17 Rx Naproxen 500 mg PO BID #30 tab 03/12/17 03/21/17 Rx diazepam 5 mg tablet 5 mg PO TIDP PRN #60 tab 03/15/17 03/21/17 Rx methocarbamol 750 mg tablet 750 mg PO TID PRN #60 tab 03/15/17 03/21/17 Rx HYDROmorphone HCL [Hydromorphone 4 mg PO Q4H PRN 03/21/17 03/21/17 History HCl] fentaNYL [Fentanyl] 1 patch TRANSDERMA Q72H 03/21/17 03/21/17 History Allergies Allergy/AdvReac Type Severity Reaction Status Date / Time lorazepam AdvReac Severe Severe Verified 03/22/17 09:26 agression Physical Examination - Ankle & Foot left Ankle appearance: swelling Foot appearance: normal, other (slight wound dehiscence and incision points at the medial aspect of the side.) Tenderness with palpation: none Ankle pain worse with weight bearing: No Ankle pain relieved by non-weight bearing: No Foot pain worse with weight bearing: No Foot pain relieved by non-weight bearing: No Assessment and Plan (1) Pressure ulcer of foot, stage 2 Status: Acute Priority: Medium Comment: status post day 1 for exostectomy with incision and drainage left foot stitches removed. Continue monitoring wound during stay every other day Change dressings every 48 hours Local wound care management at that point. Qualifiers: Laterality: left Qualified Code(s): L89.892 - Pressure ulcer of other site , stage 2
[2017-03-24] MEDS ORDERED: ALTEPLASE 2 MG VIAL IV ONE ×2 (11:24→11:25)
[2017-03-24] MEDS ORDERED: CELECOXIB 200 MG CAPSULE PO ONE (13:56)
[2017-03-24] MEDS ORDERED: HYDROmorphone 2 MG TABLET PO PRN (14:03)
[2017-03-24] MEDS: NAFCILLIN 2 GM in DEXTROSE 5% IN WATER 50 ML IV SCH ×3 (14:10→21:23)
[2017-03-24] MEDS: HYDROmorphone 2 MG/ML SYRINGE IV PRN ×2 (15:04→20:08)
[2017-03-24] MEDS: ONDANSETRON 4 MG/2 ML VIAL IV PRN (15:56)
[2017-03-24] MEDS: fentaNYL 50 MCG PATCH TOPICAL SCH (17:01)
--- NOTE | 2017-03-24 20:33 | Internal Med Progress Note ---
Medical - PN: Subj Patient information: Note initiated : 03/24/17 at 8:30 pm Service Date, if different from initiated Date: [] Patient: Cesar Nassar 71 y/o M admitted on 03/21/17 for Weakness. Chief Complaint: follow up discitis and osteomyelitis Interval history: Mr. Nassar is a 71 year old Male with h/o vertebral osteomyelitis/ discitis, possible abscess, presents to the Er for worsening b ack pain x 1 day The patient was recently discharged from this facility after being diagnosed with vertebral osteomyelitis, diskitis, the patient had MSSA bactermia as well as MSSA aspirate from verterbral bx, the patient was placed on Anceph 2gms q8hrs via cad pump. As he did not have any neurological complications surgery was not contemplated but Dr Sol did follow the patient on a regular basis. The patient pain control had always been an issue, and the patient was needing IV pain medications during the hospital stay, he was eventually discharged on po dilaudid, methacarbamol. He was seen outpatient by his PCP and spine surgery ,and thep atient was feeling he was stable. His pain regime was chnaged by his PCP, he is also on valium now for muscle relaxation, and anxiety. He was placed on fentanyl patch and dilaudid po cut to 2mg q4hrs prn. Yesterday the patient noted an increase in his pain, overnight he notes he was not feeling well, has some chills and feels cold. He is more tired and fatigued and therefore presented to the hospital for further management. In the ER his lab work up initially was well, his MRI shows worsening of osteomyelitis/ phelgom since admission. It seems his CRP is also trending up, the patient ESR is pending. I reviewed his Case with Dr Sol who continues to believe that he is a non operative candidate and needs medical management. He will be admitted to the hospital for ongoing vertebral osteomeylitis as well as inadequate pain control. The patient denies any other complaints, he has some constipation and belly fullness, he admits to juliette lower extermity weakness, no sensory loss. mar 22 patient seen examined no acute overnight events pain better esr, crp still high today compared to yesterday on iv naficillin, continue same reviewed case with ID, consider adding rifampin Reviewed with patient risk of using rifampin, he is ok with using same. Mar 23 patient seen examined no acute overnight issues patient pain worse this AM, but on oral meds and prn IV muscle relaxant CRP down slightly today, esr remains elevated > 120 continue IV abx for now, if trend is not downward , then will have to revisit the idea of decreasing the infectious burden. Mar 24 Patient complaining of fairly severe back pain. Worst pain occurs after physical therapy, then takes quite some time to get it back under control. 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 No fever or chills. Inflammatory markers improving. Tolerating rifampin. - Constitutional Vitals: Vital Signs Temp Pulse Resp BP Pulse Ox 97.5 F 88 18 120/76 94 03/24/17 19:43 03/24/17 19:43 03/24/17 19:43 03/24/17 19:43 03/24/17 19:43 Period Temp Pulse Resp BP Sys/Cote Pulse Ox Last 24 Hr 97.5 F-98.7 F 77-89 14-18 120-134/75-84 91-96 Intake and Output 03/24/17 03/24/17 03/24/17 05:59 13:59 21:59 Intake Total 950 / 950 650 / 650 350 / 350 Output Total 1375 / 1375 250 / 250 610 / 610 Balance -425 / -425 400 / 400 -260 / -260 Intake & Output: Intake & Output 03/24/17 03/24/17 03/24/17 05:59 13:59 21:59 Intake Total 950 / 950 650 / 650 350 / 350 Output Total 1375 / 1375 250 / 250 610 / 610 Balance -425 / -425 400 / 400 -260 / -260 Intake: IV 100 / 100 50 / 50 50 / 50 Nafcillin 2 gm In Sodium 100 / 100 50 / 50 Chloride 0.9% 50 ml @ 100 mls/ hr IV Q4H [facility] Rx#:[id number] Nafcillin 2 gm In Dextrose 5% 50 / 50 in Water 50 ml @ 100 mls/hr IV Q4H [facility] Rx#:[id number] Oral 850 / 850 600 / 600 300 / 300 Output: Void Amount 1375 / 1375 250 / 250 610 / 610 Other: Meal Breakfast Percent of Meal Consumed 100% Feeding Ability Independent Exam: General: Laying in bed in no acute distress Chest: Clear, no rales Cardiac vascular: Regular, no edema Abdomen: Soft, active bowel sounds, nontender Back: Lower back midline tenderness. No overlying lesion or erythema. Extremities: Left foot wound is dressed. Neuro: Alert, oriented, 5/5 strength in lower extremities Medical - PN: Obj Da - Labs CBC & Chem 7: 03/24/17 04:00 03/24/17 04:00 Labs: Abnormal Lab Results 03/24/17 03/24/17 03/24/17 04:00 04:00 04:00 RBC Hgb Hct Lymph % (Auto) Eos % (Auto) Lymph # (Auto) [place] # (Auto) ESR > 120 H Chloride BUN 5 L Glucose Uric Acid 2.4 L GGT 92 H Alkaline Phosphatase 118 H C-Reactive Protein 13.6 H Albumin 2.9 L Albumin/Globulin Ratio 0.9 L 03/24/17 03/23/17 03/23/17 04:00 04:00 04:00 RBC 3.18 L Hgb 9.7 L Hct 28.4 L Lymph % (Auto) Eos % (Auto) 7.2 H Lymph # (Auto) 1.2 L [place]ward # (Auto) ESR > 120 H Chloride BUN Glucose Uric Acid GGT Alkaline Phosphatase C-Reactive Protein 13.6 19.7 H Albumin Albumin/Globulin Ratio 03/23/17 03/23/17 03/22/17 04:00 04:00 04:00 RBC 3.13 L Hgb 9.4 L Hct 28.0 L Lymph % (Auto) 12.7 L Eos % (Auto) Lymph # (Auto) 0.9 L [place] # (Auto) ESR Chloride 95 L BUN Glucose 143 H Uric Acid 2.4 L GGT 102 H Alkaline Phosphatase 122 H C-Reactive Protein 21.6 H Albumin 2.9 L Albumin/Globulin Ratio 0.8 L 03/22/17 03/22/17 03/22/17 04:00 04:00 04:00 RBC 3.24 L Hgb 9.7 L Hct 28.8 L Lymph % (Auto) 11.6 L Eos % (Auto) Lymph # (Auto) 1.0 L [place] # (Auto) 1.0 H ESR > 120 H Chloride BUN Glucose 109 H Uric Acid GGT 110 H Alkaline Phosphatase 129 H C-Reactive Protein Albumin 3.0 L Albumin/Globulin Ratio 0.8 L Meds: Medications Acetaminophen (Tylenol) 650 mg PO Q6 [facility] Last Admin: 03/24/17 17:58 Dose: 650 mg Albuterol/Ipratropium (Duoneb) 3 ml NEB Q6HRT [facility] Last Admin: 03/24/17 18:42 Dose: 3 ml Amitriptyline HCl (Elavil) 20 mg PO HS [facility] Last Admin: 03/23/17 20:31 Dose: 20 mg Amlodipine Besylate (Norvasc) 10 mg PO QDAY [facility] Last Admin: 03/24/17 09:05 Dose: 10 mg Aspirin (Aspirin) 81 mg PO DAILY [facility] Last Admin: 03/24/17 09:05 Dose: 81 mg Atorvastatin Calcium (Lipitor) 10 mg PO HS [facility] Last Admin: 03/23/17 20:30 Dose: 10 mg Celecoxib (Celebrex) 200 mg PO DAILY [facility] Docusate Sodium (Colace) 100 mg PO BID [facility] Last Admin: 03/24/17 09:06 Dose: Not Given Fenofibrate (Antara) 129 mg PO DAILY [facility] Last Admin: 03/24/17 09:05 Dose: 129 mg Fentanyl (Duragesic) 50 mcg TOPICAL Q72H [facility] Last Admin: 03/24/17 17:01 Dose: Not Given Heparin Sodium (Porcine) (Heparin) 5,000 unit SQ Q12 [facility] Last Admin: 03/24/17 09:04 Dose: 5,000 unit Heparin Sodium (Porcine) (Heparin Flush) 2 ml IV Q12 [facility] Last Admin: 03/24/17 14:18 Dose: 2 ml Hydrochlorothiazide (Oretic) 25 mg PO DAILY [facility] Last Admin: 03/24/17 09:05 Dose: 25 mg Hydromorphone HCl (Dilaudid) 2 mg IV Q4HP PRN PRN Reason: PAIN LEVEL > 6 Last Admin: 03/24/17 20:08 Dose: 2 mg Hydromorphone HCl (Dilaudid) 6 mg PO Q24HP PRN PRN Reason: Pain Hydromorphone HCl (Dilaudid) 4 mg PO DAILY@0200 [facility] Hydromorphone HCl (Dilaudid) 4 mg PO Q4HP PRN PRN Reason: PAIN LEVEL 3-6 Last Admin: 12/29/17 17:28 Dose: 4 mg Nafcillin Sodium 2 gm/ (Dextrose) 50 mls @ 100 mls/hr IV Q4H [facility] Last Admin: 03/24/17 17:28 Dose: 100 mls/hr Losartan Potassium (Cozaar) 100 mg PO DAILY [facility] Last Admin: 03/24/17 09:05 Dose: 100 mg Methocarbamol (Robaxin) 750 mg IV Q6H [facility] Last Admin: 03/24/17 17:57 Dose: 750 mg Naloxone HCl (Narcan) 0.1 mg IV Q2MIN PRN PRN Reason: Opiate Reversal Ondansetron HCl (Zofran) 4 mg IV Q6HP PRN PRN Reason: Nausea And Vomiting Last Admin: 03/24/17 15:56 Dose: 4 mg Polyethylene Glycol (Miralax) 17 gm PO HS [facility] Last Admin: 03/23/17 20:37 Dose: Not Given Rifampin (Rifampin) 300 mg PO BID@0700,2000 [facility] Last Admin: 03/24/17 19:43 Dose: 300 mg Sodium Chloride (Saline Flush) 10 ml IV Q8 [facility] Last Admin: 03/24/17 14:10 Dose: 10 ml Medical - PN: A/P - Time Spent With Patient Total time spent is greater than 50% in coordination of care (as documented) at patient's floor/unit and/or counseling patient: Greater than 35 minutes - Narrative A/P Narrative: 71-year-old male, readmitted after her worsening back pain with worsening inflammatory markers in setting of known MSSA discitis and osteomyelitis. Discitis/ Vertebral osteomyelitic: MRI shows worsening inflammation, reviewed results with Dr Sol, not surgical candidate yet, ID in [place] advised continuing IV antibiotics, (now changed from cefazolin to nafcillin) and to consider adding rifampin, which is done. ESR still high, CRP continues downward trend Monday, will monitor. Back pain: Due to above, on fentanyl 50 patch, po Dilaudid to 4mg q4hrs, holding Valium for now, IV methocarbamol and jess Tylenol for now, amitriptyline qhs. Still with significant breakthrough pain, particularly with PT and in middle of night. Will add scheduled to a.m. dose of 4 mg oral Dilaudid, add 6 mg by mouth daily as needed prior to physical therapy. We'll also add IV Dilaudid for pain not controlled with orals. Continue to monitor and adjust medications as needed. Constipation: Miralax for now. COPD: Duonebs q6 for now, HTN : BP stable HLD on statin , continue same. Prophylaxis: DVT-hep sq regular diet Full code.
[2017-03-24] MEDS: ATORVASTATIN 20 MG TABLET PO SCH (21:28)
[2017-03-24] MEDS: AMITRIPTYLINE 10 MG TABLET PO SCH (21:29)
[2017-03-24] MEDS: POLYETHYLENE GLYCOL 3350 17 GM PACKET PO SCH (21:30)
[2017-03-25] MEDS: NAFCILLIN 2 GM in DEXTROSE 5% IN WATER 50 ML IV SCH ×6 (01:14→21:00)
[2017-03-25] MEDS: ONDANSETRON 4 MG/2 ML VIAL IV PRN ×3 (01:16→22:39)
[2017-03-25] MEDS: IPRATROPIUM/ALBUTEROL 3 ML AMPUL.NEB NEB SCH ×4 (01:20→19:13)
[2017-03-25] MEDS: HYDROmorphone 2 MG TABLET PO SCH (02:25)
[2017-03-25] MEDS: HYDROmorphone 2 MG/ML SYRINGE IV PRN ×2 (04:52→08:56)
[2017-03-25] MEDS: METHOCARBAMOL 1,000 MG/10 ML VIAL IV SCH (05:28)
[2017-03-25] MEDS: ACETAMINOPHEN 325 MG TABLET PO SCH ×3 (05:28→17:34)
[2017-03-25 05:34] LABS: Basophils # (Auto) 0 K/mcL (0.0-0.3); Basophils % (Auto) 0.4 % (0.0-2.0); Eosinophils # (Auto) 0.4 K/mcL (0.0-0.7); Granulocytes % (Auto) 72.6 % (38.0-78.0); Lymphocytes # (Auto) 1.1 K/mcL (1.5-4.8); Lymphocytes % (Auto) 13.4 % (15.5-49.0); Mean Cell Volume 88.8 fL (80.0-100.0); Mean Corpuscular HGB Conc 33.9 g/dL (31.0-36.0); Mean Corpuscular Hemoglobin 30.1 pg (26.0-34.0); Monocytes # (Auto) 0.7 K/mcL (0.1-0.9); Monocytes % (Auto) 8.6 % (1.0-12.0); Platelet Count 405 K/mcL (140-440); RBC 3.19 M/mcL (4.50-5.90); Red Cell Distribution Width 12.8 % (11.5-14.5)
[2017-03-25] MEDS: 0.9 % SODIUM CHLORIDE 10 ML SYRINGE IV SCH ×3 (05:34→21:01)
[2017-03-25 05:46] LABS: ALT/SGPT 14 U/l (0-40); Albumin 3.2 gm/dL (3.2-5.2); Alkaline Phosphatase 109 U/L (39-117); Bilirubin,Direct < 0.2 mg/dL (0.0-0.3); Blood Urea Nitrogen 5 mg/dl (8-23); Gamma Glutamyl Transpeptidase 86 U/L (8-61); Magnesium 1.6 mg/dL (1.6-2.5); Uric Acid 2.4 mg/dL (2.5-8.0)
[2017-03-25] MEDS: RIFAMPIN 300 MG CAPSULE PO SCH ×2 (06:44→20:04)
[2017-03-25] MEDS: HYDROmorphone 2 MG TABLET PO PRN ×4 (06:55→20:04)
[2017-03-25] MEDS: HEPARIN 5,000 UNIT/ML VIAL SQ SCH ×2 (08:51→21:00)
[2017-03-25] MEDS: HYDROCHLOROTHIAZIDE 25 MG TABLET PO SCH (08:52)
[2017-03-25] MEDS: ASPIRIN 81 MG TAB.CHEW PO SCH (08:52)
[2017-03-25] MEDS: FENOFIBRATE 43 MG CAPSULE PO SCH (08:52)
[2017-03-25] MEDS: amLODIPine 10 MG TABLET PO SCH (08:52)
[2017-03-25] MEDS: CELECOXIB 200 MG CAPSULE PO SCH (08:52)
[2017-03-25] MEDS: DOCUSATE SODIUM 100 MG CAPSULE PO SCH ×2 (08:53→21:00)
[2017-03-25] MEDS: LOSARTAN 50 MG TABLET PO SCH (08:53)
--- NOTE | 2017-03-25 16:14 | Internal Med Progress Note ---
Medical - PN: Subj Patient information: Note initiated : 03/25/17 at 4:10 pm Service Date, if different from initiated Date: [] Patient: Cesar Nassar a 71 y/o M admitted on 03/21/17 for Weakness. Chief Complaint: f/u discitis/osteomyelitis Interval history: Mr. Nassar is a 71 year old Male with h/o vertebral osteomyelitis/ discitis, possible abscess, presents to the Er for worsening b ack pain x 1 day The patient was recently discharged from this facility after being diagnosed with vertebral osteomyelitis, diskitis, the patient had MSSA bactermia as well as MSSA aspirate from verterbral bx, the patient was placed on Anceph 2gms q8hrs via cad pump. As he did not have any neurological complications surgery was not contemplated but Dr Sol did follow the patient on a regular basis. The patient pain control had always been an issue, and the patient was needing IV pain medications during the hospital stay, he was eventually discharged on po dilaudid, methacarbamol. He was seen outpatient by his PCP and spine surgery ,and thep atient was feeling he was stable. His pain regime was chnaged by his PCP, he is also on valium now for muscle relaxation, and anxiety. He was placed on fentanyl patch and dilaudid po cut to 2mg q4hrs prn. Yesterday the patient noted an increase in his pain, overnight he notes he was not feeling well, has some chills and feels cold. He is more tired and fatigued and therefore presented to the hospital for further management. In the ER his lab work up initially was well, his MRI shows worsening of osteomyelitis/ phelgom since admission. It seems his CRP is also trending up, the patient ESR is pending. I reviewed his Case with Dr Sol who continues to believe that he is a non operative candidate and needs medical management. He will be admitted to the hospital for ongoing vertebral osteomeylitis as well as inadequate pain control. The patient denies any other complaints, he has some constipation and belly fullness, he admits to juliette lower extermity weakness, no sensory loss. mar 22 patient seen examined no acute overnight events pain better esr, crp still high today compared to yesterday on iv naficillin, continue same reviewed case with ID, consider adding rifampin Reviewed with patient risk of using rifampin, he is ok with using same. Mar 23 patient seen examined no acute overnight issues patient pain worse this AM, but on oral meds and prn IV muscle relaxant CRP down slightly today, esr remains elevated > 120 continue IV abx for now, if trend is not downward , then will have to revisit the idea of decreasing the infectious burden. Mar 24 Patient complaining of fairly severe back pain. Worst pain occurs after physical therapy, then takes quite some time to get it back under control. 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 No fever or chills. Inflammatory markers improving. Tolerating rifampin. March 25 More comfortable today. Was requesting frequent IV as well as by mouth breakthrough doses, however would be somnolent. Discussed with patient the difference in goals of pain in elimination and pain control. Overall he does appear more comfortable today, had been sitting up in the chair for a while, walked with physical therapy in the halls. Discussed discharge planning with the patient and his , we'll change person to an entirely oral pain regimen, keep his early a.m. scheduled dose, otherwise rely on when necessary's for breakthrough. Celebrex a been added yesterday, that may be helping. CRP continues to trend down. - Constitutional Vitals: Vital Signs Temp Pulse Resp BP Pulse Ox 97.7 F 70 18 130/78 92 03/25/17 12:00 03/25/17 12:00 03/25/17 12:00 03/25/17 12:00 03/25/17 12:00 Period Temp Pulse Resp BP Sys/Cote Pulse Ox Last 24 Hr 97.5 F-98.0 F 70-91 15-18 103-130/61-85 90-94 Intake and Output 03/25/17 03/25/17 03/25/17 05:59 13:59 21:59 Intake Total 500 / 500 100 / 100 Balance 500 / 500 100 / 100 Intake & Output: Intake & Output 03/25/17 03/25/17 03/25/17 05:59 13:59 21:59 Intake Total 500 / 500 100 / 100 Balance 500 / 500 100 / 100 Intake: IV 100 / 100 100 / 100 Nafcillin 2 gm In Dextrose 5% 100 / 100 100 / 100 in Water 50 ml @ 100 mls/hr IV Q4H [facility] Rx#:[id number] Oral 400 / 400 Other: # Voids 2 Exam: General: In no acute distress, laying in bed Chest: Clear to auscultation Cardiovascular: Regular, no edema Abdomen: Soft, nontender, nondistended, active bowel sounds Back: Tenderness in lumbar region, no erythema Neuro: Alert, oriented, lower extremities neurologically intact. Medical - PN: Obj Da - Labs CBC & Chem 7: 03/25/17 04:30 03/25/17 04:30 Labs: Abnormal Lab Results 03/25/17 03/25/17 03/25/17 04:30 04:30 04:30 RBC Hgb Hct Lymph % (Auto) Eos % (Auto) Lymph # (Auto) ESR > 120 H Sodium 131 L Chloride 91 L BUN 5 L Glucose 121 H Uric Acid 2.4 L GGT 86 H Alkaline Phosphatase C-Reactive Protein 10.1 H Albumin Albumin/Globulin Ratio 03/25/17 03/24/17 03/24/17 04:30 04:00 04:00 RBC 3.19 L Hgb 9.6 L Hct 28.3 L Lymph % (Auto) 13.4 L Eos % (Auto) Lymph # (Auto) 1.1 L ESR > 120 H Sodium Chloride BUN Glucose Uric Acid GGT Alkaline Phosphatase C-Reactive Protein 13.6 H Albumin Albumin/Globulin Ratio 03/24/17 03/24/17 03/23/17 04:00 04:00 04:00 RBC 3.18 L Hgb 9.7 L Hct 28.4 L Lymph % (Auto) Eos % (Auto) 7.2 H Lymph # (Auto) 1.2 L ESR Sodium Chloride BUN 5 L Glucose Uric Acid 2.4 L GGT 92 H Alkaline Phosphatase 118 H C-Reactive Protein 19.7 H Albumin 2.9 L Albumin/Globulin Ratio 0.9 L 03/23/17 03/23/17 03/23/17 04:00 04:00 04:00 RBC 3.13 L Hgb 9.4 L Hct 28.0 L Lymph % (Auto) 12.7 L Eos % (Auto) Lymph # (Auto) 0.9 L ESR > 120 H Sodium Chloride 95 L BUN Glucose 143 H Uric Acid 2.4 L GGT 102 H Alkaline Phosphatase 122 H C-Reactive Protein Albumin 2.9 L Albumin/Globulin Ratio 0.8 L Meds: Medications Acetaminophen (Tylenol) 650 mg PO Q6 [facility] Last Admin: 03/25/17 11:30 Dose: 650 mg Albuterol/Ipratropium (Duoneb) 3 ml NEB Q6HRT [facility] Last Admin: 03/25/17 13:45 Dose: Not Given Amitriptyline HCl (Elavil) 20 mg PO HS [facility] Last Admin: 03/24/17 21:29 Dose: 20 mg Amlodipine Besylate (Norvasc) 10 mg PO QDAY [facility] Last Admin: 03/25/17 08:52 Dose: 10 mg Aspirin (Aspirin) 81 mg PO DAILY [facility] Last Admin: 03/25/17 08:52 Dose: 81 mg Atorvastatin Calcium (Lipitor) 10 mg PO HS [facility] Last Admin: 03/24/17 21:28 Dose: 10 mg Celecoxib (Celebrex) 200 mg PO DAILY [facility] Last Admin: 03/25/17 08:52 Dose: 200 mg Docusate Sodium (Colace) 100 mg PO BID [facility] Last Admin: 03/25/17 08:53 Dose: 100 mg Fenofibrate (Antara) 129 mg PO DAILY [facility] Last Admin: 03/25/17 08:52 Dose: 129 mg Fentanyl (Duragesic) 50 mcg TOPICAL Q72H [facility] Last Admin: 03/24/17 17:01 Dose: Not Given Heparin Sodium (Porcine) (Heparin) 5,000 unit SQ Q12 [facility] Last Admin: 03/25/17 08:51 Dose: 5,000 unit Heparin Sodium (Porcine) (Heparin Flush) 2 ml IV Q12 [facility] Last Admin: 03/25/17 09:42 Dose: 2 ml Hydrochlorothiazide (Oretic) 25 mg PO DAILY [facility] Last Admin: 03/25/17 08:52 Dose: 25 mg Hydromorphone HCl (Dilaudid) 4 mg PO DAILY@0200 [facility] Last Admin: 03/25/17 02:25 Dose: 4 mg Hydromorphone HCl (Dilaudid) 4 mg PO Q4HP PRN PRN Reason: PAIN LEVEL 3-6 Last Admin: 03/25/17 15:40 Dose: 4 mg Nafcillin Sodium 2 gm/ (Dextrose) 50 mls @ 100 mls/hr IV Q4H [facility] Last Infusion: 03/25/17 13:15 Dose: Infused Losartan Potassium (Cozaar) 100 mg PO DAILY [facility] Last Admin: 03/25/17 08:53 Dose: 100 mg Methocarbamol (Robaxin) 750 mg PO QIDP PRN PRN Reason: Muscle Spasm Naloxone HCl (Narcan) 0.1 mg IV Q2MIN PRN PRN Reason: Opiate Reversal Ondansetron HCl (Zofran) 4 mg IV Q6HP PRN PRN Reason: Nausea And Vomiting Last Admin: 03/25/17 09:02 Dose: 4 mg Polyethylene Glycol (Miralax) 17 gm PO HS [facility] Last Admin: 03/24/17 21:30 Dose: Not Given Rifampin (Rifampin) 300 mg PO BID@0700,2000 [facility] Last Admin: 03/25/17 06:44 Dose: 300 mg Sodium Chloride (Saline Flush) 10 ml IV Q8 [facility] Last Admin: 03/25/17 14:37 Dose: 10 ml Medical - PN: A/P - Time Spent With Patient Total time spent is greater than 50% in coordination of care (as documented) at patient's floor/unit and/or counseling patient: Greater than 35 minutes - Narrative A/P Narrative: 71-year-old male, readmitted after her worsening back pain with worsening inflammatory markers in setting of known MSSA discitis and osteomyelitis. Discitis/ Vertebral osteomyelitic: MRI shows worsening inflammation, reviewed results with Dr Sol, not surgical candidate yet, ID in [place] advised continuing IV antibiotics, (now changed from cefazolin to nafcillin) and to consider adding rifampin, which is done. ESR still high, CRP continues downward trend Monday and Monday, will monitor. Back pain: Due to above. Improved Monday; on fentanyl 50 patch, po Dilaudid to 4mg q4hrs, holding Valium for now, IV methocarbamol and [facility] Tylenol for now, amitriptyline qhs. Still with significant breakthrough pain, particularly with PT and in middle of night. Improved with 0200 dose of Dilaudid, but requesting frequent IV doses and becoming somnolent. Discussion with patient and on goals of pain control, not pain elimination. Plan: Continue scheduled 2:00 a.m. dose of 4 mg oral Dilaudid, and 4 mg q4h prn ; stop other PO or IV doses. Continue celebrex (added Monday). Change to PO Robaxin. Continue to monitor and adjust medications as needed. Constipation: Miralax for now. COPD: Duonebs q6 for now, HTN : BP stable HLD on statin , continue same. Prophylaxis: DVT-hep sq Regular diet Full code.
[2017-03-25] MEDS: METHOCARBAMOL 750 MG TABLET PO PRN (20:04)
[2017-03-25] MEDS: AMITRIPTYLINE 10 MG TABLET PO SCH (21:01)
[2017-03-25] MEDS: POLYETHYLENE GLYCOL 3350 17 GM PACKET PO SCH (21:01)
[2017-03-25] MEDS: ATORVASTATIN 20 MG TABLET PO SCH (21:01)
[2017-03-25] MEDS ORDERED: HYDROmorphone 2 MG TABLET PO SCH (23:00)
[2017-03-26] MEDS: HYDROmorphone 2 MG TABLET PO PRN ×3 (00:36→09:43)
[2017-03-26] MEDS: ACETAMINOPHEN 325 MG TABLET PO SCH ×3 (00:36→12:12)
[2017-03-26] MEDS: NAFCILLIN 2 GM in DEXTROSE 5% IN WATER 50 ML IV SCH ×3 (00:37→09:44)
[2017-03-26] MEDS: 0.9 % SODIUM CHLORIDE 10 ML SYRINGE IV SCH ×2 (00:37→05:38)
[2017-03-26] MEDS: IPRATROPIUM/ALBUTEROL 3 ML AMPUL.NEB NEB SCH ×2 (01:08→07:43)
[2017-03-26] MEDS: METHOCARBAMOL 750 MG TABLET PO PRN ×2 (02:34→08:45)
[2017-03-26] MEDS: HYDROmorphone 2 MG TABLET PO SCH (02:34)
[2017-03-26 05:53] LABS: Basophils # (Auto) 0 K/mcL (0.0-0.3); Basophils % (Auto) 0.4 % (0.0-2.0); Eosinophils # (Auto) 0.3 K/mcL (0.0-0.7); Eosinophils % (Auto) 3.9 % (0.0-7.0); Granulocytes % (Auto) 77.4 % (38.0-78.0); Lymphocytes # (Auto) 0.9 K/mcL (1.5-4.8); Lymphocytes % (Auto) 10.5 % (15.5-49.0); Mean Cell Volume 88.4 fL (80.0-100.0); Mean Corpuscular HGB Conc 34.1 g/dL (31.0-36.0); Mean Corpuscular Hemoglobin 30.2 pg (26.0-34.0); Monocytes # (Auto) 0.7 K/mcL (0.1-0.9); Monocytes % (Auto) 7.8 % (1.0-12.0); Platelet Count 424 K/mcL (140-440); RBC 3.37 M/mcL (4.50-5.90); Red Cell Distribution Width 13.3 % (11.5-14.5)
[2017-03-26 06:22] LABS: ALT/SGPT 20 U/l (0-40); Albumin/Globulin Ratio 0.8 (1.0-2.3); Alkaline Phosphatase 111 U/L (39-117); Bilirubin,Direct < 0.2 mg/dL (0.0-0.3); Blood Urea Nitrogen 6 mg/dl (8-23); Gamma Glutamyl Transpeptidase 89 U/L (8-61); Magnesium 1.6 mg/dL (1.6-2.5); Uric Acid 2.4 mg/dL (2.5-8.0)
[2017-03-26] MEDS: RIFAMPIN 300 MG CAPSULE PO SCH (07:02)
[2017-03-26] MEDS: FENOFIBRATE 43 MG CAPSULE PO SCH (08:44)
[2017-03-26] MEDS: HEPARIN 5,000 UNIT/ML VIAL SQ SCH (08:44)
[2017-03-26] MEDS: LOSARTAN 50 MG TABLET PO SCH (08:44)
[2017-03-26] MEDS: ASPIRIN 81 MG TAB.CHEW PO SCH (08:45)
[2017-03-26] MEDS: amLODIPine 10 MG TABLET PO SCH (08:45)
[2017-03-26] MEDS: HYDROCHLOROTHIAZIDE 25 MG TABLET PO SCH (08:45)
[2017-03-26] MEDS: CELECOXIB 200 MG CAPSULE PO SCH ×2 (08:45→08:48)
[2017-03-26] MEDS: DOCUSATE SODIUM 100 MG CAPSULE PO SCH (08:45)
[2017-03-26] MEDS ORDERED: fentaNYL 75 MCG PATCH TOPICAL SCH (11:45)
--- NOTE | 2017-03-26 13:33 | Discharge Summary ---
Medical - DS: Prov Patient information: Note initiated : 03/26/17 at 1:19 pm Service Date, if different from initiated Date: [] Patient: Cesar Nassar 71 y/o M admitted on 03/21/17 for Weakness. Date of admission: 03/21/17 17:18 Discharge date: 03/26/17 Primary care physician: Annabelle Lee DO Admitting clinician: Giulia Hughes Consults: 03/23/17 16:05 Consult to Physician [CONS] Routine Comment: to remove stitches on left foot. Consulting Provider: Ayaan Young Reason For Exam: Physician to Consult Discharging clinician: Jodi Watson Medical - DS: Meds - Discharge Medications Prescriptions: Celecoxib [Celebrex] 200 mg PO DAILY #30 cap fentaNYL [Duragesic] 75 mcg TOPICAL Q72H #10 patch Lactobacillus Acidophilus [Probiotic] 1 capsule PO TID #90 capsule Nafcillin 2 gm IV Q4H #222 vial Rifampin 300 mg PO BID@0700,2000 #60 cap Active and Home Medications: Home Medications Ascorbate Calcium [Vitamin C] 500 mg PO QDAY 04/23/15 [History Confirmed Last Taken 03/03/17 09:00] Aspirin [Ecotrin] 81 mg PO QDAY 04/23/15 [History Confirmed 03/21/17 Last Taken 03/20/17 08:00] Fenofibrate,Micronized [Fenofibrate] 134 mg PO QDAY 04/23/15 [History Confirmed 03/21/17 Last Taken 03/20/17 08:00] Losartan/Hydrochlorothiazide [Losartan-Hctz 100-25 mg Tab] 1 each PO QDAY [History Confirmed 03/21/17 Last Taken 03/20/17 08:00] Rosuvastatin Calcium [Crestor] 5 mg PO HS 04/23/15 [History Confirmed 03/21/17 Last Taken 03/20/17 21:00] amitriptyline 10 mg tablet 20 mg PO HS tab 02/08/17 [History Confirmed Last Taken 03/18/17 21:00] amlodipine 10 mg tablet 10 mg PO QDAY 02/08/17 [History Confirmed 03/21/17 Last Taken 03/20/17 08:00] ipratropium-albuterol 18 mcg-103 mcg/actuation aerosol inhaler 1 spray INHALATION PRN PRN 02/08/17 [History Confirmed 03/21/17 Last Taken Unknown] Acetaminophen [Tylenol] 1,000 mg PO Q6 #240 tab 03/11/17 [Rx Confirmed 03/21/17 Last Taken 03/20/17 19:45] Lidocaine [Lidoderm] 1 patch TOPICAL DAILY@1000 #30 patch 03/11/17 [Rx Confirmed 03/21/17 Last Taken 03/17/17 15:00] methocarbamol 750 mg tablet 750 mg PO TID PRN #60 tab 03/15/17 [Rx Confirmed Last Taken 03/21/17 14:30] HYDROmorphone HCL [Hydromorphone HCl] 4 mg PO Q4H PRN 03/21/17 [History Confirmed 03/21/17 Last Taken 03/21/17 14:30] Celecoxib [Celebrex] 200 mg PO DAILY #30 cap 03/26/17 [Rx Last Taken Unknown] Lactobacillus Acidophilus [Probiotic] 1 capsule PO TID #90 capsule 03/26/17 [Rx Last Taken Unknown] Nafcillin 2 gm IV Q4H #222 vial 03/26/17 [Rx Last Taken Unknown] Rifampin 300 mg PO BID@0700,2000 #60 cap 03/26/17 [Rx Last Taken Unknown] fentaNYL [Duragesic] 75 mcg TOPICAL Q72H #10 patch 03/26/17 [Rx Last Taken Unknown] Medical - DS: Hosp Hospital course: Mr. Nassar is a 71 year old Male with h/o vertebral osteomyelitis/ discitis, possible abscess, presents to the Er for worsening b ack pain x 1 day The patient was recently discharged from this facility after being diagnosed with vertebral osteomyelitis, diskitis, the patient had MSSA bacteremia as well as MSSA aspirate from vertebral bx, the patient was placed on Anceph 2gms q8hrs via cad pump. As he did not have any neurological complications surgery was not contemplated but Dr Sol did follow the patient on a regular basis. The patient pain control had always been an issue, and the patient was needing IV pain medications during the hospital stay, he was eventually discharged on po Dilaudid, methocarbamol. He was seen outpatient by his PCP and spine surgery ,and the patient was feeling he was stable. His pain regime was changed by his PCP, he is also on valium now for muscle relaxation, and anxiety. He was placed on fentanyl patch and Dilaudid po cut to 2mg q4hrs prn. Yesterday the patient noted an increase in his pain, overnight he notes he was not feeling well, has some chills and feels cold. He is more tired and fatigued and therefore presented to the hospital for further management. In the ER his lab work up initially was well, his MRI shows worsening of osteomyelitis/ phelgom since admission. It seems his CRP is also trending up, the patient ESR is pending. I reviewed his Case with Dr Sol who continues to believe that he is a non operative candidate and needs medical management. He will be admitted to the hospital for ongoing vertebral osteomyelitis as well as inadequate pain control. The patient denies any other complaints, he has some constipation and belly fullness, he admits to juliette lower extermity weakness, no sensory loss. mar 22 patient seen examined no acute overnight events pain better esr, crp still high today compared to yesterday on iv nafcillin, continue same reviewed case with ID, consider adding rifampin Reviewed with patient risk of using rifampin, he is ok with using same. Mar 23 patient seen examined no acute overnight issues patient pain worse this AM, but on oral meds and prn IV muscle relaxant CRP down slightly today, esr remains elevated > 120 continue IV abx for now, if trend is not downward , then will have to revisit the idea of decreasing the infectious burden. Mar 24 Patient complaining of fairly severe back pain. Worst pain occurs after physical therapy, then takes quite some time to get it back under control. 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 No fever or chills. Inflammatory markers improving. Tolerating rifampin. March 25 More comfortable today. Was requesting frequent IV as well as by mouth breakthrough doses, however would be somnolent. Discussed with patient the difference in goals of pain in elimination and pain control. Overall he does appear more comfortable today, had been sitting up in the chair for a while, walked with physical therapy in the halls. 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 scheduled dose, otherwise rely on when necessary's for breakthrough. Celebrex a been added yesterday, that may be helping. CRP continues to trend down. March 26 Worsening pain overnight. Received extra oral breakthrough dose. This morning complaining that his pain is worse with certain movements, however he appears to have tolerable planed level when he is positioned in bed or in a chair. Discussed with him and his , it's unrealistic to expect total pain relief with exertion. Is also unrealistic to expect 0 pain while at rest. Our goal is to find a tolerable amount of pain. Patient is having some loose stools, has been receiving bowel care and previously been having some constipation. Family is concerned it was secondary to celecoxib, though that is not a known complication or side effect. In summary: Patient 71-year-old male with known MSSA discitis and osteomyelitis admitted with recurring pain. He also had recurrent elevation of inflammatory markers. He had been on cefazolin. Repeat MRI showed persistent inflammatory change. Dr. Hughes, who admitted the patient, discussed with Dr. Sol for orthopedic /spinal surgery, did not feel there was an organized abscess or need for surgical intervention. Dr. Hughes also discussed the case with infectious disease in [place]. They recommended adding rifampin. In addition cefazolin was changed to nafcillin. Over the next few days, the patient's overall pain did improve. His C-reactive protein was 21 at readmission, is down to 10 at discharge. His erythrocyte sedimentation rate did remain elevated. As noted pain management was a challenge. The patient often complained of 10/ 10 pain, though this appeared to be pain he is experiencing with certain movements. He did require breakthrough oral doses during the day, thus at the time of discharge his fentanyl patch was increased to 75 g per hour. He'll continue with when necessary hydromorphone for breakthrough. Celebrex, 200 mg daily was also added to his regimen as an adjunct for pain control. Prescriptions provided for this. In regards to his MSSA osteomyelitis and discitis, he'll be discharged on nafcillin, 2 g every 4 hours via CADD pump as well as rifampin twice a day. He' ll require antibiotics through May 03, which be 6 weeks after the change in antibiotic. Discharge diagnosis: Vertebral osteomyelitis/discitis from MSSA - Time Spent with Patient Total time spent providing and/or coordinating discharge services: Greater than 30 minutes Medical - DS: Exam - Constitutional Vitals: Vital Signs Temp Pulse Resp BP BP Pulse Ox 03/26/17 12:23 98.3 F 96 H 16 135/77 93 03/26/17 11:33 98.3 F 16 135/79 93 03/26/17 06:55 99 F 16 126/72 92 03/26/17 04:00 98.5 F 85 16 123/76 93 03/26/17 00:35 97.9 F 91 H 16 127/73 92 03/25/17 20:00 97.7 F 86 12 130/60 92 Intake and Output 03/25/17 03/26/17 03/26/17 21:59 05:59 13:59 Intake Total 100 / 100 650 / 650 100 / 100 Output Total 550 / 550 Balance 100 / 100 100 / 100 100 / 100 Intake: IV 100 / 100 50 / 50 100 / 100 Nafcillin 2 gm In Dextrose 5% 100 / 100 50 / 50 100 / 100 in Water 50 ml @ 100 mls/hr IV Q4H [facility] Rx#:[id number] Oral 600 / 600 Output: Void Amount 550 / 550 Other: # Voids 1 1 # Bowel Movements 1 1 1 Weight 181 lb Additional comments: General: Laying in bed, appears fairly comfortable at the time of my exam Chest: Respirations unlabored, no rales Cardiovascular: Regular Abdomen: Active bowel sounds, nontender Neuro: Alert, oriented, or extremities intact. Medical - DS: Data Procedures and tests throughout hospitalization: MRI Lumbar Spine Impression: Worsening discitis and osteomyelitis at L2 and L3 and worsening phlegmon surrounding the spine at this level, extending into the adjacent psoas muscles. Stable moderately severe spinal canal stenosis at L3-4 due to degenerative changes Labs on day of discharge: Labs from last 24 hours 03/26/17 03/26/17 03/26/17 04:00 04:00 04:00 WBC RBC Hgb Hct MCV MCH MCHC RDW Plt Count MPV Gran % Lymph % (Auto) Forrest % (Auto) Eos % (Auto) Baso % (Auto) Gran # Lymph # (Auto) Forrest # (Auto) Eos # (Auto) Baso # (Auto) ESR > 120 H Sodium 129 L Potassium 3.5 Chloride 89 L Carbon Dioxide 27 Anion Gap 13.0 BUN 6 L Creatinine 0.8 GFR Calculation 90 Glucose 110 H Uric Acid 2.4 L Calcium 9.4 Phosphorus 3.5 Magnesium 1.6 Total Bilirubin 0.3 Direct Bilirubin < 0.2 GGT 89 H AST 39 H ALT 20 Alkaline Phosphatase 111 Lactate Dehydrogenase 160 C-Reactive Protein 10.4 H Total Protein 6.8 Albumin 3.0 L Globulin 3.8 H Albumin/Globulin Ratio 0.8 L Triglycerides 128 03/26/17 04:00 WBC 8.5 RBC 3.37 L Hgb 10.2 L Hct 29.8 L MCV 88.4 MCH 30.2 MCHC 34.1 RDW 13.3 Plt Count 424 MPV 8.3 Gran % 77.4 Lymph % (Auto) 10.5 L Forrest % (Auto) 7.8 Eos % (Auto) 3.9 Baso % (Auto) 0.4 Gran # 6.5 Lymph # (Auto) 0.9 L Forrest # (Auto) 0.7 Eos # (Auto) 0.3 Baso # (Auto) 0 ESR Sodium Potassium Chloride Carbon Dioxide Anion Gap BUN Creatinine GFR Calculation Glucose Uric Acid Calcium Phosphorus Magnesium Total Bilirubin Direct Bilirubin GGT AST ALT Alkaline Phosphatase Lactate Dehydrogenase C-Reactive Protein Total Protein Albumin Globulin Albumin/Globulin Ratio Triglycerides Preliminary micro results at discharge 03/21/17 17:40 Blood Culture - Preliminary Blood 03/21/17 17:50 Blood Culture - Preliminary Blood Medical - DS: A/P - Patient/Caregiver Discharge Instructions Activity: increase activity as tolerated (use back brace when upright) Diet: Regular Diet Additional Instructions: You have been scheduled for Outpatient Infusions Starting @ 1300 on 03/27/17 To avoid constipation while taking any narcotic pain medication, take an over the counter stool softener/laxative. Call your physician for fevers above 100.5 or pain not controlled by medication. Your prescriptions are with your discharge information. Please call and schedule a 2 week follow up with your primary care physician Prescriptions: Celecoxib [Celebrex] 200 mg PO DAILY #30 cap fentaNYL [Duragesic] 75 mcg TOPICAL Q72H #10 patch Lactobacillus Acidophilus [Probiotic] 1 capsule PO TID #90 capsule Nafcillin 2 gm IV Q4H #222 vial Rifampin 300 mg PO BID@0700,2000 #60 cap Other Amb Orders: Toilet Riser Discharge Order Location: Determined By Patient - Follow up Plan Follow up with: Annabelle Lee DO [Primary Care Provider] - (Please Schedule a 2 Week follow up with your primary Care physician.) Disposition: Home, Self-Care Prognosis: Fair Rehab Potential: Fair Overall status at discharge: patient is not back to baseline
== END 2017-03-26 12:35 | disposition home or self-care (01) | DRG 541 ==
LOC: ED 11:13 → MEDSUR 17:18
PROVIDERS: ADMIT Internal Medicine; ATTEND Internal Medicine

== ENCOUNTER 2017-08-07 09:57 | Inpatient (IN) ==
[~2017-08-07 09:57] MED LIST: ACETAMINOPHEN 500 MG TABLET PO SCH; CELECOXIB 200 MG CAPSULE PO SCH; PREGABALIN 75 MG CAPSULE PO SCH; ceFAZolin 1 GM VIAL IV SCH; oxyCODONE 10 MG TAB.ER.12H PO SCH
[2017-08-07 11:12] LABS: Basophils # (Auto) 0 K/mcL (0.0-0.3); Basophils % (Auto) 0.5 % (0.0-2.0); Eosinophils # (Auto) 0.1 K/mcL (0.0-0.7); Eosinophils % (Auto) 1.8 % (0.0-7.0); Granulocytes % (Auto) 79.5 % (38.0-78.0); Lymphocytes # (Auto) 0.9 K/mcL (1.5-4.8); Lymphocytes % (Auto) 11.2 % (15.5-49.0); Mean Cell Volume 88.2 fL (80.0-100.0); Mean Corpuscular HGB Conc 33.3 g/dL (31.0-36.0); Mean Corpuscular Hemoglobin 29.4 pg (26.0-34.0); Monocytes # (Auto) 0.6 K/mcL (0.1-0.9); Platelet Count 393 K/mcL (140-440); Red Cell Distribution Width 13.1 % (11.5-14.5)
[2017-08-07 11:19] LABS: Appearance,Urine CLEAR; Bilirubin,Urine NEG (NEG); Color,Urine YELLOW; Glucose,Urine (UA) NEGATIVE (NEG); Leukocyte Esterase,Urine NEG /uL (NEG); Protein,Urine NEG (NEG); Specific Gravity,Urine 1.021 (1.000-1.035); Urine Blood NEG mg/dL (<0.03); Urobilinogen,Urine NEG (NEG)
[2017-08-07 11:31] LABS: Blood Urea Nitrogen 18 mg/dl (8-23)
[2017-08-07] MEDS ORDERED: LIDOCAINE HCL/PF 100 MG/5 ML SYRINGE IV ONE (12:45)
[2017-08-07] MEDS ORDERED: ROPIVACAINE HCL/PF 20 ML VIAL IJ ONE (12:45)
[2017-08-07] MEDS ORDERED: DEXAMETHASONE 10 MG/ML VIAL IV ONE (12:45)
[2017-08-07] MEDS ORDERED: fentaNYL 100 MCG/2 ML VIAL IV ONE (12:45)
[2017-08-07] MEDS ORDERED: METOPROLOL TARTRATE 5 MG/5 ML VIAL IV ONE (12:45)
[2017-08-07] MEDS ORDERED: MIDAZOLAM 5 MG/5 ML VIAL IV ONE (12:45)
[2017-08-07] MEDS ORDERED: PROPOFOL 200 MG/20 ML VIAL IV ONE (12:45)
[2017-08-07] MEDS ORDERED: GENTAMICIN SULFATE 800 MG/20 ML VIAL IR ONE (13:13)
[2017-08-07] MEDS ORDERED: FLUMAZENIL 0.1 MG/ML ML IV PRN (13:42)
[2017-08-07] MEDS ORDERED: LACTATED RINGERS 250 ML IV PRN (13:42)
[2017-08-07] MEDS ORDERED: MEPERIDINE 25 MG/ML SYRINGE IV PRN (13:42)
[2017-08-07] MEDS ORDERED: PROMETHAZINE 25 MG/ML VIAL IV PRN (13:42)
[2017-08-07] MEDS ORDERED: ONDANSETRON 4 MG/2 ML VIAL IV PRN ×2 (13:42→14:00)
[2017-08-07] MEDS ORDERED: NALOXONE HCL 0.4 MG/ML VIAL IV PRN (13:42)
[2017-08-07] MEDS ORDERED: IPRATROPIUM/ALBUTEROL 3 ML AMPUL.NEB NEB PRN (13:42)
[2017-08-07] MEDS ORDERED: BENZOCAINE/MENTHOL 1 LOZENGE PO PRN ×2 (13:42→14:00)
[2017-08-07] MEDS ORDERED: diphenhydrAMINE 50 MG/ML VIAL IV PRN (13:42)
[2017-08-07] MEDS ORDERED: LACTATED RINGERS 1,000 ML IV SCH (13:45)
[2017-08-07] MEDS ORDERED: BISACODYL 10 MG SUPP.RECT PR PRN ×2 (14:00→14:39)
[2017-08-07] MEDS ORDERED: VANCOMYCIN 1,000 MG in 0.9 % SODIUM CHLORIDE 250 ML IV SCH (14:00)
[2017-08-07] MEDS ORDERED: FLEETS ADULT ENEMA PR PRN ×2 (14:00→14:39)
[2017-08-07] MEDS ORDERED: oxyCODONE/APAP 5/325MG TABLET PO PRN (14:00)
[2017-08-07] MEDS ORDERED: ACETAMINOPHEN 325 MG TABLET PO PRN ×2 (14:00→14:39)
[2017-08-07] MEDS ORDERED: TEMAZEPAM 15 MG CAPSULE PO PRN ×2 (14:00→14:39)
[2017-08-07] MEDS ORDERED: MAGNESIUM HYDROXIDE 30 ML ORAL.SUSP PO PRN ×2 (14:00→14:39)
[2017-08-07] MEDS ORDERED: TRANEXAMIC ACID 1,000 MG/10 ML VIAL IV ONE (14:00)
[2017-08-07] MEDS ORDERED: POLYETHYLENE GLYCOL 3350 17 GM PACKET PO PRN ×2 (14:00→14:39)
--- NOTE | 2017-08-07 14:00 | Brief Operative Note ---
Date of procedure: 08/07/17 Pre-op diagnosis: left septic knee Post-op diagnosis: same Procedure: left knee poly liner exchange and I and D Grafts/Implants: Yes Anesthesia: FABIAN Surgeon: Chris Waldrop Network Engineer Administrator: Ciro Jhaveri Estimated blood loss (cc): 10 Tourniquet Time (Minutes): 30 Specimens Removed/Pathology: none sent Condition: stable Disposition: PACU
[2017-08-07] MEDS ORDERED: AMOXICILLIN/POTASSIUM CLAV 875 MG TABLET PO SCH (14:15)
[2017-08-07] MEDS: fentaNYL 100 MCG/2 ML VIAL IV PRN ×5 (14:16→14:33)
[2017-08-07] MEDS: HYDROmorphone 2 MG/ML VIAL IV PRN ×2 (14:37→14:47)
--- NOTE | 2017-08-07 14:39 | XRay Report ---
CLINICAL INFORMATION: Postsurgical follow-up TECHNIQUE: AP and lateral left knee COMPARISON: None. FINDINGS: Status post left total knee arthroplasty. Prosthetic compliments are in anatomic positions. There is postsurgical soft tissue and intra-articular gas. There are skin joaquin anteriorly IMPRESSION: Status post left total knee arthroplasty Interpreted and Authenticated by: Arnold Cuellar 08/07/17
--- NOTE | 2017-08-07 14:39 | Operative Note ---
DATE OF OPERATION: 08/07/2017 PREOPERATIVE DIAGNOSIS: Septic left knee. POSTOPERATIVE DIAGNOSIS: Septic left knee. PROCEDURE: Left knee poly liner exchange and I and D of the knee. SURGEON: Chris Waldrop MD MANAGER: Ciro Jhaveri PA-C ANESTHESIA: General LMA anesthesia. COMPLICATIONS: None. DESCRIPTION OF PROCEDURE: The patient was brought to the operating room and put to sleep with general LMA anesthesia. Once asleep, the patient had the left leg sterilely prepped and draped in the usual sterile fashion, and confirmed as the operative site. We made a midline incision and a mid vastus approach performed. We inspected the knee which did reveal synovitis within the knee and bloody fluid, but there was no purulence. Frankly we removed the poly liner and then washed all the metal components using a sponge and Hibiclens, IrriSept solutions. We let the knee soak in this solution after a thorough scrubbing and the synovectomy of the entire joint using a rongeur. We then thoroughly irrigated with 6 liters of irrigation with the last bag having gentamicin. We thoroughly irrigated and closed the mid vastus approach with #1 Stratafix. We did exchange the poly from a 9 to a size 11 poly and removed some spurs off the lateral facet of the patella and any synovial tissue that was impinging. After the substantial irrigation we then closed the mid vastus approach with #2 Stratafix. Skin was closed with Stratafix and adhesive closure. The patient tolerated this well without complication. RBH:constantine Job ID: [id number] Doc ID: [id number] Chris Waldrop MD
[2017-08-07] MEDS: oxyCODONE/APAP 5/325MG TABLET PO PRN ×2 (16:43→20:51)
[2017-08-07] MEDS: VANCOMYCIN 1,000 MG in 0.9 % SODIUM CHLORIDE 250 ML IV SCH (16:54)
[2017-08-07] MEDS: 0.9 % SODIUM CHLORIDE 10 ML SYRINGE IV SCH ×2 (16:55→20:55)
[2017-08-07] MEDS: 0.45 % SODIUM CHLORIDE 1,000 ML IV SCH (16:55)
[2017-08-07] MEDS: AMOXICILLIN/POTASSIUM CLAV 875 MG TABLET PO SCH (18:03)
[2017-08-07] MEDS: KETOROLAC 15 MG/ML VIAL IV SCH ×2 (18:04→23:26)
[2017-08-07] MEDS: SENNOSIDES 1 TABLET PO SCH (20:52)
[2017-08-07] MEDS: ASPIRIN 325 MG ENTERIC COATED TABLET PO SCH (20:52)
[2017-08-07] MEDS: ceFAZolin 1 GM VIAL IV SCH (20:53)
[2017-08-07] MEDS: DOCUSATE SODIUM 100 MG CAPSULE PO SCH (20:53)
[2017-08-07] MEDS ORDERED: SENNOSIDES 1 TABLET PO SCH (21:00)
[2017-08-07] MEDS ORDERED: ASPIRIN 325 MG ENTERIC COATED TABLET PO SCH (21:00)
[2017-08-07] MEDS ORDERED: DOCUSATE SODIUM 100 MG CAPSULE PO SCH (21:00)
[2017-08-08] MEDS: oxyCODONE/APAP 5/325MG TABLET PO PRN ×6 (02:01→20:39)
[2017-08-08] MEDS: 0.45 % SODIUM CHLORIDE 1,000 ML IV SCH (02:02)
[2017-08-08] MEDS: HYDROmorphone 2 MG/ML VIAL IV PRN ×2 (05:06→15:37)
[2017-08-08] MEDS: ceFAZolin 1 GM VIAL IV SCH ×3 (05:06→22:27)
[2017-08-08] MEDS: KETOROLAC 15 MG/ML VIAL IV SCH ×3 (06:16→17:06)
[2017-08-08] MEDS: 0.9 % SODIUM CHLORIDE 10 ML SYRINGE IV SCH ×5 (06:19→22:27)
[2017-08-08] MEDS ORDERED: 0.9 % SODIUM CHLORIDE 10 ML SYRINGE IV PRN (06:26)
[2017-08-08] MEDS ORDERED: CELECOXIB 200 MG CAPSULE PO SCH (07:00)
--- NOTE | 2017-08-08 07:53 | Orthopedic Progress Note ---
Subjective Patient information: Note initiated : 08/08/17 at 7:52 am Service Date, if different from initiated Date: [] Patient: Cesar Nassar 71 y/o M admitted on 08/07/17 for Left Knee Poly Liner Exchange with irrigation and . Chief Complaint: [Pt is stable this morning on post operative day 1 without any significant concerns or complaints. Patients vital signs have remained stable. Patients dressing is dry and is grossly instact from a neurovascular and motor standpoint. Patients 10 point ROS is otherwise negative. ] Objective Vital signs: Vital Signs Temp Pulse Pulse Resp BP BP Pulse Ox 08/08/17 07:07 97.9 F 14 124/80 97 08/08/17 04:00 97.5 F 64 12 127/75 100 08/08/17 00:00 98.6 F 71 12 134/69 99 08/07/17 21:14 97 08/07/17 21:13 97 08/07/17 20:00 98 08/07/17 18:59 98.2 F 75 12 119/71 98 08/07/17 18:03 77 108/64 100 08/07/17 17:03 82 157/88 08/07/17 16:33 71 129/84 97 08/07/17 16:03 78 137/84 97 08/07/17 16:00 97.1 F 16 155/88 94 08/07/17 15:49 72 137/73 97 08/07/17 15:33 87 132/83 95 08/07/17 15:18 69 135/84 96 08/07/17 15:10 97.1 F 16 155/88 94 08/07/17 15:03 85 144/98 98 08/07/17 14:55 97 F 78 18 145/78 98 08/07/17 14:35 79 16 149/82 99 08/07/17 14:20 79 18 146/76 99 08/07/17 14:15 84 20 150/76 99 08/07/17 14:10 83 18 151/76 98 08/07/17 14:05 98.1 F 84 22 141/79 99 08/07/17 10:32 98.0 F 67 16 133/76 99 Intake and Output 08/07/17 08/08/17 08/08/17 21:59 05:59 13:59 Intake Total 750 / 750 300 / 300 Output Total 200 / 200 275 / 275 275 / 275 Balance 550 / 550 25 / 25 -275 / -275 Intake: IV 250 / 250 Vancomycin 1,000 mg In Sodium 250 / 250 Chloride 0.9% 250 ml @ 250 mls/ hr IV Q24H [facility] Rx#:[id number] Oral 500 / 500 300 / 300 Output: Void Amount 200 / 200 275 / 275 275 / 275 Other: Meal Dinner Percent of Meal Consumed 100% Feeding Ability Independent Weight 167 lb Intake & Output: Intake & Output 08/07/17 08/08/17 08/08/17 21:59 05:59 13:59 Intake Total 750 / 750 300 / 300 Output Total 200 / 200 275 / 275 275 / 275 Balance 550 / 550 25 / 25 -275 / -275 Weight 167 lb Intake: IV 250 / 250 Vancomycin 1,000 mg In Sodium 250 / 250 Chloride 0.9% 250 ml @ 250 mls/ hr IV Q24H [facility] Rx#:[id number] Oral 500 / 500 300 / 300 Output: Void Amount 200 / 200 275 / 275 275 / 275 Other: Meal Dinner Percent of Meal Consumed 100% Feeding Ability Independent Incision: Yes healing Incision clean and dry: Yes Dressing: Yes clean Weight bearing status: full Neurological exam IM: Yes motor sensory intact, Yes neurovascular intact Extremities exam IM: Yes Foot pink and warm, Yes neurovascular intact - Labs CBC & BMP: 08/08/17 03:50 08/07/17 10:27 Labs: Orthopedic Labs 08/07/17 10:27 POC PT 15.0 H POC INR 1.3 H APTT 48 H 08/08/17 08/07/17 03:50 10:27 Hgb 12.4 L Hct 31.7 L 37.1 L Assessment and Plan (1) History of infection of total joint prosthesis of knee The patient has been educated regarding dressing care, Physical Therapy recommendations, home exercises, restrictions, and follow up appointments. The patient has had all necessary DME prescribed. The patient has remained relatively stable during their hospital course. Out patient infusion pic line therapy per Dr Waldrop orders. Status: Acute
--- NOTE | 2017-08-08 07:56 | Discharge Summary ---
Ortho Discharge - TKA - Patient Instructions Diet: Regular Diet Activity: activity as tolerated, weight bearing as tolerated Total Knee Protocol: For Total Knee: Start ROM ZEINAB with stationary bike or rocking chair. Work on gaining full extension of knee. Posterior dislocation precautions provided. Hip abductor strengthening and gait training instructions provided. Apply Cryocuff as instructed. Dressing Care: May shower in 2 days - Problem Maintenance (1) History of infection of total joint prosthesis of knee Status: Acute - Follow Up Plan Follow Up Appointments: Chris Waldrop MD [Physician] - 08/22/17 3:00 pm Disposition: Home, Self-Care Prognosis: Good Rehab Potential: Good I certify that the patient requires SNF services: No Overall status at discharge: patient is progressing back to baseline - Orders For Discharge Prescriptions: Aspirin [Ecotrin] 325 mg PO BID #60 tab.ec Docusate Sodium [Colace] 100 mg PO BID #60 cap oxyCODONE/APAP [Percocet 5-325 mg] 1 - 2 tab PO Q4HP PRN #75 tab PRN Reason: Pain Level 3-6
[2017-08-08] MEDS ORDERED: amLODIPine 10 MG TABLET PO SCH (09:00)
[2017-08-08] MEDS: AMOXICILLIN/POTASSIUM CLAV 875 MG TABLET PO SCH ×2 (10:00→17:47)
[2017-08-08] MEDS: amLODIPine 10 MG TABLET PO SCH (10:41)
[2017-08-08] MEDS: DOCUSATE SODIUM 100 MG CAPSULE PO SCH ×2 (10:41→20:39)
[2017-08-08] MEDS: ASPIRIN 325 MG ENTERIC COATED TABLET PO SCH ×2 (10:41→20:39)
[2017-08-08] MEDS: VANCOMYCIN 1,000 MG in 0.9 % SODIUM CHLORIDE 250 ML IV SCH (10:43)
--- NOTE | 2017-08-08 15:11 | Discharge Summary ---
Ortho Discharge - TKA - Patient Instructions Diet: Regular Diet Activity: activity as tolerated, weight bearing as tolerated Total Knee Protocol: For Total Knee: Start ROM ZEINAB with stationary bike or rocking chair. Work on gaining full extension of knee. Posterior dislocation precautions provided. Hip abductor strengthening and gait training instructions provided. Apply Cryocuff as instructed. Dressing Care: Aquacel Ag - leave on for 5 days - Problem Maintenance (1) History of infection of total joint prosthesis of knee Status: Acute - Follow Up Plan Follow Up Appointments: Chris Waldrop MD [Physician] - 08/22/17 3:00 pm Disposition: Home, Self-Care Prognosis: Good Rehab Potential: Good I certify that the patient requires SNF services: No Overall status at discharge: patient is progressing back to baseline - Orders For Discharge Prescriptions: Aspirin [Ecotrin] 325 mg PO BID #60 tab.ec Docusate Sodium [Colace] 100 mg PO BID #60 cap oxyCODONE/APAP [Percocet 5-325 mg] 1 - 2 tab PO Q4HP PRN #75 tab PRN Reason: Pain Level 3-6
--- NOTE | 2017-08-08 15:12 | XRay Report ---
INDICATION: PICC line placement TECHNIQUE: AP chest x-ray,portable semierect COMPARISON: March 22, 2017, March 08, 2017 FINDINGS:Left-sided PICC line with its tip in the superior vena cava. Linear density at the left lung base appears stable and is consistent with scarring. No new pulmonary parenchymal infiltrate or mass. No evidence for congestive heart failure or pulmonary congestion. No acute abnormality. No interval change. IMPRESSION: 1. Left-sided PICC line with its tip in the superior vena cava 2. Left basilar atelectasis or scarring, stable. No new abnormality. Interpreted and Authenticated by: Arnold Cuellar 08/08/17
[2017-08-08] MEDS: SENNOSIDES 1 TABLET PO SCH (20:39)
[2017-08-09] MEDS: oxyCODONE/APAP 5/325MG TABLET PO PRN ×3 (00:33→09:42)
[2017-08-09] MEDS: KETOROLAC 15 MG/ML VIAL IV SCH ×3 (00:33→12:44)
[2017-08-09] MEDS: ceFAZolin 1 GM VIAL IV SCH (05:15)
[2017-08-09] MEDS: 0.9 % SODIUM CHLORIDE 10 ML SYRINGE IV SCH ×2 (05:16→09:50)
[2017-08-09] MEDS: HYDROmorphone 2 MG/ML VIAL IV PRN (05:52)
[2017-08-09] MEDS ORDERED: RIFAMPIN 300 MG CAPSULE PO SCH (07:00)
[2017-08-09] MEDS ORDERED: DIAZEPAM 5 MG TABLET PO PRN (07:05)
--- NOTE | 2017-08-09 07:05 | Orthopedic Progress Note ---
Subjective Patient information: Note initiated : 08/09/17 at 7:04 am Service Date, if different from initiated Date: [] Patient: Cesar Nassar 71 y/o M admitted on 08/07/17 for Left Knee Poly Liner Exchange with irrigation and . Chief Complaint: [minimal pain and doing well] Objective Vital signs: Vital Signs Temp Pulse Resp BP Pulse Ox 08/09/17 04:00 97.8 F 80 16 137/79 94 08/09/17 00:00 97.7 F 78 16 129/70 96 08/08/17 20:00 98.1 F 74 16 123/70 97 08/08/17 16:00 98.3 F 85 14 139/74 94 08/08/17 12:00 98.1 F 87 14 143/76 95 08/08/17 08:00 97 08/08/17 07:07 97.9 F 14 124/80 97 Intake and Output 08/08/17 08/09/17 08/09/17 21:59 05:59 13:59 Intake Total 350 / 350 250 / 250 Output Total 300 / 300 1175 / 1175 150 / 150 Balance 50 / 50 -925 / -925 -150 / -150 Intake: Oral 350 / 350 250 / 250 Output: Void Amount 300 / 300 1175 / 1175 150 / 150 Other: Meal Dinner Percent of Meal Consumed 100% Stool Size Moderate Stool Consistency Soft # Voids 1 # Bowel Movements 1 Weight 169 lb Intake & Output: Intake & Output 08/08/17 08/09/17 08/09/17 21:59 05:59 13:59 Intake Total 350 / 350 250 / 250 Output Total 300 / 300 1175 / 1175 150 / 150 Balance 50 / 50 -925 / -925 -150 / -150 Weight 169 lb Intake: Oral 350 / 350 250 / 250 Output: Void Amount 300 / 300 1175 / 1175 150 / 150 Other: Meal Dinner Percent of Meal Consumed 100% Stool Size Moderate Stool Consistency Soft # Voids 1 # Bowel Movements 1 - Labs CBC & BMP: 08/08/17 03:50 08/07/17 10:27 Labs: Orthopedic Labs 08/07/17 10:27 POC PT 15.0 H POC INR 1.3 H APTT 48 H 08/08/17 08/07/17 03:50 10:27 Hgb 12.4 L Hct 31.7 L 37.1 L
[2017-08-09] MEDS ORDERED: METHOCARBAMOL 750 MG TABLET PO PRN (07:19)
[2017-08-09] MEDS ORDERED: oxyCODONE HCL 5 MG TABLET PO PRN (07:30)
[2017-08-09] MEDS ORDERED: POTASSIUM CHLORIDE 20 MEQ TABLET PO SCH (08:00)
[2017-08-09] MEDS ORDERED: LOSARTAN 50 MG TABLET PO SCH (09:00)
[2017-08-09] MEDS ORDERED: IPRATROPIUM/ALBUTEROL SULFATE 1 PUFF INHALER INH PRN (09:00)
[2017-08-09] MEDS ORDERED: CELECOXIB 200 MG CAPSULE PO SCH (09:00)
[2017-08-09] MEDS ORDERED: VANCOMYCIN 1,500 MG in 0.9 % SODIUM CHLORIDE 500 ML IV SCH (09:00)
[2017-08-09] MEDS ORDERED: HYDROCHLOROTHIAZIDE 25 MG TABLET PO SCH (09:00)
[2017-08-09] MEDS ORDERED: LOSARTAN/HCTZ 100/25 TABLET PO SCH (09:00)
[2017-08-09] MEDS ORDERED: FENOFIBRATE 43 MG CAPSULE PO SCH (09:00)
[2017-08-09] MEDS: amLODIPine 10 MG TABLET PO SCH (09:28)
[2017-08-09] MEDS: AMOXICILLIN/POTASSIUM CLAV 875 MG TABLET PO SCH (09:29)
[2017-08-09] MEDS: DOCUSATE SODIUM 100 MG CAPSULE PO SCH (09:30)
[2017-08-09] MEDS: ASPIRIN 325 MG ENTERIC COATED TABLET PO SCH (09:30)
[2017-08-09] MEDS ORDERED: fentaNYL 50 MCG PATCH TOPICAL SCH (10:00)
[2017-08-09] MEDS ORDERED: Rosuvastatin Calcium [Crestor] 5 MG PO SCH (21:00)
[2017-08-09] MEDS ORDERED: AMITRIPTYLINE 10 MG TABLET PO SCH (21:00)
== END 2017-08-09 13:00 | disposition home or self-care (01) | DRG 468 ==
LOC: SUR 09:57 → MEDSUR 09:58 → EDSTATUS 13:00 → MEDSUR 15:45
PROVIDERS: ADMIT Orthopaedic Surgery; ATTEND Orthopaedic Surgery

== ENCOUNTER 2019-06-10 06:55 | Inpatient (IN) ==
[2019-06-04 17:42] LABS: Appearance,Urine CLOUDY; Bacteria,Urine 0 /hpf (0); Bilirubin,Urine NEG (NEG); Color,Urine YELLOW; Culture Indicated,Urine NO; Glucose,Urine (UA) NEGATIVE (NEG); Ketones,Urine NEG (NEG); Leukocyte Esterase,Urine NEG /uL (NEG); Mucus,Urine FEW /hpf (0); Nitrate,Urine NEG (NEG); Protein,Urine 30 mg/dL (NEG); Specific Gravity,Urine 1.015 (1.000-1.035); Urine Blood NEG mg/dL (<0.03); Urine RBC 5 /hpf (0-1); Urine Squamous Epithelial Cell 0 /hpf (0-4); Urine WBC 0 /hpf (0-4); Urobilinogen,Urine NEG (NEG)
[2019-06-04 19:59] LABS: Blood Urea Nitrogen 13 mg/dl (8-23); Calcium 11.1 mg/dl (8.6-10.4); Carbon Dioxide 30 mmol/L (22-30); Glomerular Filtration Rate 74; Glucose 113 mg/dL (70-105); INR 0.9 (0.9-1.1); Prothrombin Time 12.4 sec (11.9-14.5)
[2019-06-04 20:04] LABS: Chloride 93 mmol/L (96-108)
[2019-06-04 20:07] LABS: Basophils # (Auto) 0.05 K/mcL (0.00-0.30); Basophils % (Auto) 0.7 % (0.0-2.0); Eosinophils # (Auto) 0.15 K/mcL (0.00-0.70); Granulocytes % (Auto) 75.2 % (38.0-78.0); Hemoglobin 14.2 g/dL (13.7-17.5); Lymphocytes # (Auto) 1.05 K/mcL (1.50-4.80); Lymphocytes % (Auto) 13.7 % (15.5-49.0); Mean Corpuscular HGB Conc 34.6 g/dL (31.0-36.0); Mean Platelet Volume 11.5 fL (7.4-10.4); Monocytes # (Auto) 0.64 K/mcL (0.10-0.90); Monocytes % (Auto) 8.4 % (1.0-12.0); Platelet Count 254 K/mcL (140-440); RBC 4.71 M/mcL (4.63-6.08); Red Cell Distribution Width 14.2 % (11.5-14.5); WBC 7.6 K/mcL (4.50-11.00)
[~2019-06-10 06:55] MED LIST changes: +IPRATROPIUM/ALBUTEROL 3 ML AMPUL.NEB NEB PRN; +SCOPOLAMINE 1 PATCH PATCH TOPICAL PRN; -ceFAZolin 1 GM VIAL IV SCH; +ceFAZolin 2 GM in DEXTROSE 5% IN WATER 50 ML IV SCH
[2019-06-10] MEDS ORDERED: fentaNYL 250 MCG/5 ML VIAL IV ONE (09:00)
[2019-06-10] MEDS ORDERED: ROPIVACAINE HCL/PF 20 ML VIAL IJ ONE (09:00)
[2019-06-10] MEDS ORDERED: TRANEXAMIC ACID 1,000 MG/10 ML VIAL IV ONE ×2 (09:00→10:31)
[2019-06-10] MEDS ORDERED: GLYCOPYRROLATE 0.2 MG/ML VIAL IV ONE (09:00)
[2019-06-10] MEDS ORDERED: LIDOCAINE HCL/PF 100 MG/5 ML SYRINGE IV ONE (09:00)
[2019-06-10] MEDS ORDERED: KETAMINE 100 MG/ML ML IV ONE (09:00)
[2019-06-10] MEDS ORDERED: ONDANSETRON 4 MG/2 ML VIAL IV ONE (09:00)
[2019-06-10] MEDS ORDERED: SUCCINYLCHOLINE 20 MG/ML ML IV ONE (09:00)
[2019-06-10] MEDS ORDERED: PROPOFOL 200 MG/20 ML VIAL IV ONE (09:00)
[2019-06-10] MEDS ORDERED: DEXAMETHASONE 10 MG/ML VIAL IV ONE (09:00)
[2019-06-10] MEDS ORDERED: GENTAMICIN SULFATE 800 MG/20 ML VIAL IR ONE (09:35)
[2019-06-10] MEDS ORDERED: MEPERIDINE 25 MG/ML SYRINGE IV PRN (10:23)
[2019-06-10] MEDS ORDERED: LACTATED RINGERS 250 ML IV PRN (10:23)
[2019-06-10] MEDS ORDERED: ONDANSETRON 4 MG/2 ML VIAL IV PRN ×2 (10:23→10:31)
[2019-06-10] MEDS ORDERED: PROMETHAZINE 25 MG/ML VIAL IV PRN (10:23)
[2019-06-10] MEDS ORDERED: ACETAMINOPHEN 1,000 MG/100 ML BOTTLE IV ONE (10:23)
[2019-06-10] MEDS ORDERED: diphenhydrAMINE 50 MG/ML VIAL IV PRN (10:23)
[2019-06-10] MEDS ORDERED: NALOXONE HCL 0.4 MG/ML VIAL IV PRN (10:23)
[2019-06-10] MEDS ORDERED: IPRATROPIUM/ALBUTEROL 3 ML AMPUL.NEB NEB PRN (10:23)
[2019-06-10] MEDS ORDERED: fentaNYL 100 MCG/2 ML VIAL IV PRN (10:23)
[2019-06-10] MEDS ORDERED: LACTATED RINGERS 1,000 ML IV SCH (10:30)
[2019-06-10] MEDS ORDERED: ACETAMINOPHEN 325 MG TABLET PO PRN (10:31)
[2019-06-10] MEDS ORDERED: BISACODYL 10 MG SUPP.RECT PR PRN (10:31)
[2019-06-10] MEDS ORDERED: POLYETHYLENE GLYCOL 3350 17 GM PACKET PO PRN (10:31)
[2019-06-10] MEDS ORDERED: BENZOCAINE/MENTHOL 1 LOZENGE PO PRN (10:31)
[2019-06-10] MEDS ORDERED: HYDROmorphone 2 MG/ML VIAL IV PRN (10:31)
[2019-06-10] MEDS ORDERED: FLEETS ADULT ENEMA PR PRN (10:31)
[2019-06-10] MEDS ORDERED: MAGNESIUM HYDROXIDE 30 ML ORAL.SUSP PO PRN (10:31)
[2019-06-10] MEDS ORDERED: TEMAZEPAM 15 MG CAPSULE PO PRN (10:31)
[2019-06-10] MEDS ORDERED: GABAPENTIN 300 MG CAPSULE PO PRN (10:33)
[2019-06-10] MEDS ORDERED: traMADol 50 MG TABLET PO PRN (10:33)
--- NOTE | 2019-06-10 10:47 | Discharge Summary ---
Ortho Discharge - TSA - Patient Instructions Diet: Regular Diet Activity: activity as tolerated, weight bearing as tolerated Total Shoulder Protocol: Leave immobilizer in place except for bathing and ROM. Abduction pillow. Continue to wear sling until seen by physician. Codman Pendulum : These exercises use momentum produced by your body to move your shoulder joint. Bend your knees and shift your weight to your front leg, then back, allowing your arm to swing in the same directions. Using the same technique, alternately shift your weight between your right and left legs, allowing your arm to swing from side to side. These exercises are also performed in counterclockwise and clockwise circular motions. Typically these exercises are performed several times per day, for a set number repetitions or minutes, such as 20 times in a row or 5 minutes at a time. Dressing Care: May shower in 2 days - Follow Up Plan Follow Up Appointments: Ciro Jhaveri PA-C [Physician Stave Planer Tender] - 06/25/19 1:00 pm Disposition: Home, Self-Care Prognosis: Good Rehab Potential: Good I certify that the patient requires SNF services: No Overall status at discharge: patient is progressing back to baseline - Orders For Discharge Prescriptions: oxyCODONE HCL [Roxicodone] 5 - 10 mg PO Q4HP PRN #60 tab PRN Reason: Pain Prescription Printed Additional Discharge Orders: Physical Therapy at Discharge - TSA Location: None Selected Brace/Splint Location: None Selected
[2019-06-10] MEDS: HYDROcodone/APAP 10/325MG TABLET PO PRN ×3 (12:00→20:26)
[2019-06-10] MEDS: LACTATED RINGERS 1,000 ML IV SCH ×2 (12:00→20:45)
--- NOTE | 2019-06-10 12:02 | XRay Report ---
CLINICAL INFORMATION: Post-Op Total Shoulder COMPARISON: None. FINDINGS: The shoulder prostheses is anatomically aligned. Acromioclavicular joint is normal. No osseous abnormality. Moderate soft tissue gas and swelling seen at the expected IMPRESSION: Negative Interpreted and Authenticated by: Arnold Mays 06/10/19
[2019-06-10] MEDS: 0.9 % SODIUM CHLORIDE 10 ML SYRINGE IV SCH ×2 (13:37→22:02)
[2019-06-10] MEDS: ceFAZolin 1 GM VIAL IV SCH (16:22)
[2019-06-10] MEDS: [UNRECOGNIZED DRUG - OTHER] PO SCH (16:22)
--- NOTE | 2019-06-10 17:14 | Brief Operative Note ---
Date of procedure: 06/10/19 Pre-op diagnosis: Left knee djd Post-op diagnosis: same Procedure: Left tka philippe Grafts/Implants: Yes Anesthesia: GETA Complications: none Surgeon: Chris Waldrop Cargo Tank Mechanic: Ciro Jhaveri Estimated blood loss (cc): 20 Tourniquet Time (Minutes): 45 Specimens Removed/Pathology: none sent Condition: stable Disposition: PACU
[2019-06-10] MEDS ORDERED: ATORVASTATIN 20 MG TABLET PO SCH (21:00)
[2019-06-10] MEDS ORDERED: SENNOSIDES 1 TABLET PO SCH (21:00)
[2019-06-10] MEDS ORDERED: traZODone HCL 50 MG TABLET PO SCH (21:00)
[2019-06-10] MEDS: DOCUSATE SODIUM 100 MG CAPSULE PO SCH (21:05)
[2019-06-11] MEDS: HYDROcodone/APAP 10/325MG TABLET PO PRN ×3 (00:38→09:59)
[2019-06-11] MEDS: ceFAZolin 1 GM VIAL IV SCH (00:39)
[2019-06-11] MEDS: 0.9 % SODIUM CHLORIDE 10 ML SYRINGE IV SCH (06:05)
--- NOTE | 2019-06-11 07:40 | Orthopedic Progress Note ---
Subjective Patient information: Note initiated : 06/11/19 at 7:39 am Service Date, if different from initiated Date: [] Patient: Cesar Nassar 73 y/o M admitted on 06/10/19 for Left Reverse Total Shoulder Arthroplasty with. Chief Complaint: [Pt is stable this morning on post operative day 1 without any significant concerns or complaints. Patients vital signs have remained stable. Patients dressing is dry and is grossly intact from a neur ovascular and motor standpoint. Patients 10 point ROS is otherwise negative. ] Objective Vital signs: Vital Signs Temp Pulse Resp BP Pulse Ox 06/11/19 02:47 98.1 F 71 16 117/62 90 06/10/19 23:37 97.6 F 83 16 131/74 93 06/10/19 19:12 97.9 F 86 16 131/82 92 06/10/19 15:21 67 20 122/76 95 06/10/19 13:10 98.2 F 72 20 118/73 97 06/10/19 12:40 79 18 141/95 94 06/10/19 12:25 71 18 128/74 95 06/10/19 12:10 61 16 128/84 96 06/10/19 11:56 72 16 126/88 95 06/10/19 11:40 97.4 F 73 18 126/80 90 06/10/19 11:20 97.1 F 81 15 154/77 95 06/10/19 11:15 87 13 119/82 96 06/10/19 11:10 67 14 131/83 90 06/10/19 11:05 87 15 132/94 97 06/10/19 11:00 78 16 112/55 98 06/10/19 10:55 80 14 120/71 97 06/10/19 10:50 68 10 L 124/57 97 06/10/19 10:45 69 12 106/65 97 06/10/19 10:42 97.1 F 72 12 109/70 98 Intake and Output 06/10/19 06/11/19 06/11/19 21:59 05:59 13:59 Intake Total 1120 1400 Output Total 350 900 650 Balance 770 500 -650 Intake: IV 1000 Lactated Ringers 1,000 ml @ 100 1000 mls/hr IV .Q10H LUC Rx#: [id number] Oral 1120 400 Output: Void Amount 350 900 650 Other: Meal Dinner Percent of Meal Consumed 100% Feeding Ability Independent Urine Appearance Clear Clear Urine Color Straw Bright Yellow Urine Odor Normal Normal Weight 184 lb 4.8 oz Intake & Output: Intake & Output 06/10/19 06/11/19 06/11/19 21:59 05:59 13:59 Intake Total 1120 1400 Output Total 350 900 650 Balance 770 500 -650 Weight 184 lb 4.8 oz Intake: IV 1000 Lactated Ringers 1,000 ml @ 100 1000 mls/hr IV .Q10H LUC Rx#: [id number] Oral 1120 400 Output: Void Amount 350 900 650 Other: Meal Dinner Percent of Meal Consumed 100% Feeding Ability Independent Urine Appearance Clear Clear Urine Color Straw Bright Yellow Urine Odor Normal Normal Incision: Yes healing Incision clean and dry: Yes Dressing: Yes clean Neurological exam IM: Yes motor sensory intact, Yes neurovascular intact Extremities exam IM: Yes Foot pink and warm, Yes neurovascular intact - Labs CBC & BMP: 06/04/19 16:15 06/04/19 16:15 Labs: Orthopedic Labs 06/04/19 16:15 PT 12.4 INR 0.9 APTT 36 06/04/19 16:15 Hgb 14.2 Hct 41.0 Assessment and Plan (1) History of reverse total replacement of left shoulder joint The patient has been educated regarding dressing care, Physical Therapy recommendations, home exercises, restrictions, and follow up appointments. The patient has had all necessary DME prescribed. The patient has remained relatively stable during their hospital course. Leave Dermabond patch intact until followup Status: Acute
--- NOTE | 2019-06-11 07:54 | Operative Note ---
DATE OF OPERATION: 06/10/2019 PREOPERATIVE DIAGNOSIS: Left shoulder degenerative arthritis with rotator cuff arthropathy. POSTOPERATIVE DIAGNOSIS: Left shoulder degenerative arthritis with rotator cuff arthropathy. PROCEDURE: Left reverse total shoulder using Ira components, biceps tenodesis. 2. Left shoulder lipoma excision. 3. Left elbow foreign body removal, which was glass. SURGEON: Chris Waldrop MD AUTOMOBILE SERVICE WRITER: Ciro Jhaveri PA-C. This provider's expertise and technical skill were required throughout the case. The PA assisted with preoperative coordination, intraoperative retraction, wound closure, dressing and splint application, as well as postoperative documentation and care coordination. ANESTHESIA: General LMA anesthesia. COMPLICATIONS: None. DESCRIPTION OF PROCEDURE: After being brought to the operating room and put to sleep with general LMA anesthesia, we had a timeout performed confirming the left shoulder as the operative site by initials, consent form and x-rays. After being sterilely prepped and draped, we made a deltopectoral approach to the arm. Once this was done, we then made a deltopectoral approach to the shoulder, exposing the shoulder, anterior capsule which was released. The subscap was released and the capsule opened. We subluxed the humeral head anteriorly and identified the biceps tendon which was then released and a biceps tenodesis performed to the pec major and the subpectoral region after roughening of the bone. We placed two [id number] stitches of Ethibond. Once this was well secured, we removed any remnants of the meniscus and made our humeral head cut. The guide was placed and we made the cut at the anatomical neck region. We then removed the ball portion, noting that there was quite a bit of rotator cuff tear from the supraspinatus to the infraspinatus, ending of the teres minor. We irrigated thoroughly and then subluxed the head posteriorly after removing osteophytes. We released the capsule around the glenoid, placed a central pin and then reamed up to the size 40. We then placed a metaglene. The metaglene was secured to the glenoid and a central screw measuring 40 mm. We then placed three peripheral screws measuring 24, 40 and 28 mm with excellent purchase. I then used released the capsule inferiorly and took this medially about a cm to ensure that there was room for the joint to move. Once we fixed this we placed a 36 mm glenosphere with 2 mm of offset and 2 mm of the eccentricity. We then prepared the humeral side. We broached up to the size 12. We then trialed the size 12 with a standard thickness poly and then we went up 2 mm thicker to make this tension perfectly aligned for the deltoid. We irrigated thoroughly and took the shoulder through full range of motion. We placed a stem with a small amount of cement distally. Once we were able to do this we then placed a +2 mm poly liner, which seemed to fit very nicely. We took the shoulder through full range of motion again-it was very stable throughout all arcs, no impingement. We took some spurs off anteriorly to make sure there was nothing that would impinge. We irrigated thoroughly and then placed stitches in the deltopectoral interval with 2-0 Vicryl and closed the skin with 2-0 Vicryl and 3-0 Monocryl as well as adhesive closure. A second case was performed. We performed a lipoma excision on the lateral deltoid. We did obtain consent for this and we removed a 2 cm x 3 cm lipoma on the lateral aspect of the shoulder. We also did a third procedure where we had already prepped the elbow. A foreign body was removed after a sterile bandage had been placed on the other two sterile wounds. This was a retained foreign body, subcutaneous in this area. This was removed using a small incision over the glass. This was well encapsulated which was then excised in its entirety. We irrigated thoroughly and closed this with 4-0 nylon. A sterile bandage was applied and a Donjoy sling was fitted and given to the patient at the end of the case. CONSTANZA:constantine Job ID: [id number] Doc ID: [id number] Chris Waldrop MD
[2019-06-11] MEDS ORDERED: LOSARTAN 50 MG TABLET PO SCH (09:00)
[2019-06-11] MEDS ORDERED: ASPIRIN 81 MG TAB.CHEW PO SCH (09:00)
[2019-06-11] MEDS ORDERED: LOSARTAN/HCTZ 100/25 TABLET PO SCH (09:00)
[2019-06-11] MEDS ORDERED: HYDROCHLOROTHIAZIDE 25 MG TABLET PO SCH (09:00)
[2019-06-11] MEDS ORDERED: FENOFIBRATE 43 MG CAPSULE PO SCH (09:00)
[2019-06-11] MEDS: DOCUSATE SODIUM 100 MG CAPSULE PO SCH (09:04)
[2019-06-11] MEDS: [UNRECOGNIZED DRUG - OTHER] PO SCH (09:07)
== END 2019-06-11 10:24 | disposition home or self-care (01) | DRG 465 ==
LOC: MEDSUR 06:55
PROVIDERS: ADMIT Orthopaedic Surgery; ATTEND Orthopaedic Surgery

== ENCOUNTER 2022-08-30 10:05 | Inpatient (IN) ==
[2022-08-30] MEDS ORDERED: cefTRIAXone 1 GM VIAL IV ONE (10:13)
[2022-08-30] MEDS ORDERED: 0.9 % SODIUM CHLORIDE 1,000 ML IV ONE (10:13)
--- NOTE | 2022-08-30 10:18 | Emergency Department Note ---
HPI General Chief complaint: Urogenital-Male Stated complaint: Sepsis Time Seen by Provider: 08/30/22 10:08 Mode of arrival: wheelchair History of Present Illness HPI Narrative: Narrative: This is a 76-year-old male presenting the emergency department with concerns of sepsis and A-fib with RVR. The patient's symptoms started on Monday, the third when he had a temperature of greater than 100.4. Think he was seen here 2 days ago diagnosed with acute hemorrhagic cystitis was also in A-fib with RVR at the time they got a CTA of his chest as well as abdomen pelvis which were negative except for Nonobstructing 3 mm left lower pole renal calculus. He was felt to be stable enough to go home they had placed him on metoprolol and azithromycin after giving IV azithromycin here in the emergency department for the urinary tract infection. since he was having hemorrhagic cystitis that it was decided at the time to not place him on anticoagulation at that time but that he would need to follow-up with his primary for further evaluation and treatment of the A-fib. His urine culture grew out Klebsiella oxytoa as well as one of the blood cultures also grew out this Klebsiella. It is a sensitive to ceftriaxone. The patient reports that he was feeling okay last couple days but then this morning he got quite severe rigors and chills. He has not been having fevers at home he has not been complaining of headaches or upper respiratory symptoms new cough any new or worsening shortness of breath chest pain. He has been having some lower abdominal pain as well as some left lower quadrant abdominal pain. He reports that the pain usually just comes on when he urinates. He has been having urinary frequency and urgency and dysuria that came back worse today. He had 1 episode of the diarrhea on Monday but has not had any since. No reporting black or bloody stools. Patient is on a dicloxacillin at baseline since he had some bad Staph aureus infections in the past. Related Data Home Medications Medication Instructions Recorded Confirmed dicloxacillin 500 mg capsule 500 mg PO BID 08/30/22 08/30/22 hydrocodone-chlorpheniramine 5 ml PO Q12HP PRN cough 08/30/22 08/30/22 omeprazole 20 mg capsule,delayed 20 mg PO QHS 08/30/22 08/30/22 release trazodone 100 mg tablet 200 mg PO HS insomnia 08/30/22 08/30/22 Previous Rx's Medication Instructions Recorded methocarbamol 500 mg tablet See Rx Instructions .Route 04/19/22 .COMPLEX #90 tabs tramadol 50 mg tablet 50 mg PO Q4-6H PRN pain #120 tabs 06/02/22 fenofibrate micronized 134 mg 134 mg PO HS #90 caps 06/07/22 capsule irbesartan 150 1 tab PO QDAY #90 tabs 06/29/22 mg-hydrochlorothiazide 12.5 mg tablet rosuvastatin 5 mg tablet 5 mg PO HS cholesterol #90 tabs 07/08/22 azithromycin 250 mg tablet 250 mg PO QDAY 4 days #4 tabs 08/27/22 metoprolol succinate 25 mg 25 mg PO QDAY #30 tabs 08/27/22 tablet,extended release 24 hr Allergies Allergy/AdvReac Type Severity Reaction Status Date / Time lorazepam AdvReac Mild Severe Verified 08/30/22 09:21 agression Review of Systems ROS ROS Narrative: Narrative: All systems ED: reviewed and negative except as stated. [facility] Narrative Patient History Narrative: Narrative: Medical/Surgical/Family History All Active Problems (Updated 08/30/22 @ 13:57 by Pernell Miranda PA-C) Atrial fibrillation with rapid ventricular response (Acute) Hypokalemia (Acute) Bacteremia (Acute) Acute UTI (Acute) Sepsis (Acute) Atrial fibrillation with RVR (Acute) Acute hemorrhagic cystitis (Acute) COPD exacerbation (Acute) GERD (gastroesophageal reflux disease) (Acute) Fatigue (Acute) Nocturnal hypoxia (Chronic) Postnasal drip (Chronic) Dysphagia (Chronic) Dyspnea (Chronic) History of foot surgery (Acute) Chronic cough (Chronic) Cough (Acute) Medicare annual wellness visit, subsequent (Acute) Neuropathy (Chronic) Strain of lumbar region (Acute) Thoracic back pain (Acute) Septic discitis of lumbar region (Acute) Pressure ulcer of foot, stage 2 (Acute) Low back pain (Acute) Pain crisis (Acute) Discitis (Acute) Drug intolerance (Acute) History of malnutrition (Acute) History of infection of total joint prosthesis of knee (Acute) History of reverse total replacement of left shoulder joint (Acute) Hypokalemia (Acute) Hospital discharge follow-up (Acute) Discitis, unspecified, lumbar region (Acute) Osteomyelitis due to Staphylococcus aureus (Acute) Back pain (Acute) Rosacea (Chronic) COPD (chronic obstructive pulmonary disease) (Chronic) Wellness examination (Chronic) History of tobacco abuse (Chronic) Joint pain (Chronic) Hyperlipidemia (Chronic) Hypertension, essential (Chronic) Irregular heart beat (Chronic ~2006) Lung disorder (Chronic) Effusion, right knee (Acute) Medical History Back pain Chronic cough COPD (chronic obstructive pulmonary disease) COPD exacerbation Cough Discitis, unspecified, lumbar region Dysphagia Dyspnea Effusion, right knee Fatigue GERD (gastroesophageal reflux disease) History of tobacco abuse Hyperlipidemia Hypertension, essential Hypokalemia Irregular heart beat (~2006) Joint pain Lung disorder Medicare annual wellness visit, subsequent Neuropathy Nocturnal hypoxia Osteomyelitis due to Staphylococcus aureus Postnasal drip Rosacea Rosacea Sepsis Wellness examination 02/08/17 Surgical History H/O rotator cuff surgery 2007 x2 History of foot surgery multiple History of hernia repair History of total left knee replacement 2011 Hx of appendectomy 2004 S/P herniorrhaphy S/P shoulder joint replacement 04/2019 Dr. Waldrop Status post right partial knee replacement 2016 Family History Father , age 80 Arthritis Diabetes Staph infection Sister Breast cancer Social History Smoking Status: Never smoker Alcohol Intake Frequency: 0-2 drinks per day Substance Use: does not use Exam Narrative Narrative: Narrative: General: Alert, in no acute distress Head: No trauma normocephalic Eyes: PERRLA, EOMs intact no scleral icterus or scleral injection Neck: Full range of motion, no midline tenderness ENT: Moist mucous membranes, uvula is midline. No sign of peritonsillar abscess or Ryne's angina. Cardiovascular: Tachycardia irregularly irregular Respiratory: No rhonchi rales or wheezes, no respiratory distress, poor aeration in upper lung thorpe Abdomen pelvis: Abdomen is soft and nontender to palpation. There is no guarding no rebound tenderness. Negative Valerio sign. No tenderness over McBurney's point. Back: Negative CVA tenderness bilaterally Neuro: Patient is alert and oriented x3 Psych: Normal affect, normal mood Skin: Warm, no rash, normal color Course Vital Signs Vital signs: Vital Signs Temperature 97.7 F 08/30/22 10:14 Pulse Rate 107 H 08/30/22 10:14 Respiratory Rate 20 08/30/22 10:14 Blood Pressure 122/81 08/30/22 10:14 Pulse Oximetry (%) 95 08/30/22 10:14 Oxygen Delivery Method Room Air 08/30/22 10:14 Temperature 97.4 F 08/30/22 15:59 Pulse Rate 94 H 08/30/22 16:15 Respiratory Rate 17 08/30/22 16:15 Blood Pressure 144/91 08/30/22 16:03 Pulse Oximetry (%) 94 08/30/22 16:15 Oxygen Delivery Method Room Air 08/30/22 16:15 MDM MDM Narrative Medical decision making narrative: Narrative: Differential diagnosis: UTI, sepsis, infected left kidney stone, diverticulitis, A-fib with RVR Independent lab ordered and reviewed by me: CBC no leukocytosis anemia or left shift Chem-8 shows mild hypokalemia at 2.9, anion gap is normal at 16, other electrolytes are normal kidney function stable Hepatic panel reviewed no significant derangement Procalcitonin 1.25 UA is consistent with urinary tract infection it is a nitrite positive. No haley blood in the urine, patient reports that it has been dark yellow. Blood cultures x2 pending VBG with lactic acid pH is 7.43 lactic acid is 1.3 ECG shows A-fib with RVR CT of abdomen pelvis without contrast to rule out obstructed left kidney stone IMPRESSION: 1. 3 mm left lower pole renal stone, unchanged since 08/27/2022 2. No hydronephrosis or hydroureter 3. Centrilobular emphysema. Mild pulmonary fibrosis suspected 4. Previous appendectomy Medications ordered: 1 L of saline for possible sepsis and tachycardia 1 g IV Rocephin 40 oral milliequivalents of potassium for mild hypokalemia. Disposition decision making After a liter of fluid the patient's heart rate improved to 95. Still in A-fib without the use of additional rate control medication The patient does not meet SIRS criteria Patient is not septic Patient have positive blood cultures in one of the bottles along with positive urine culture We will admit the patient for bacteremia, UTI and mild hypokalemia and A-fib with RVR\ I spoke with Dr. Griffin the hospitalist who agreed to admit the patient for further evaluation and treatment. Lab Data 08/30/22 10:46 Labs: Lab Results 08/30/22 08/30/22 08/30/22 Range/Units 10:46 10:46 10:46 WBC 7.1 (4.5-11.0) K/mcL RBC 4.70 (4.63-6.08) M/mcL Hgb 15.0 (13.7-17.5) g/dL Hct 43.0 (40.1-51.0) % POC Hct (41-55) MCV 91.5 (80.0-100.0) fL MCH 31.9 (26.0-34.0) pg MCHC 34.9 (31.0-36.0) g/dL RDW 12.2 (11.5-14.5) % Plt Count 131 L (140-440) K/mcL MPV 11.7 (8.8-12.5) fL Immature Gran % (Auto) 0.3 (0.0-0.5) % Neut % (Auto) 94.3 H (38.0-78.0) % Lymph % (Auto) 2.7 L (15.5-49.0) % Gregory % (Auto) 1.7 (1.0-12.0) % Eos % (Auto) 0.7 (0.0-7.0) % Baso % (Auto) 0.3 (0.0-2.0) % Lymph # (Auto) 0.19 L (1.50-4.80) K/mcL Gregory # (Auto) 0.12 (0.10-0.90) K/mcL Eos # (Auto) 0.05 (0.00-0.70) K/mcL Baso # (Auto) 0.02 (0.00-0.30) K/mcL Immature Gran # 0.02 (0.00-0.05) K/mcl Absolute Neutrophils 6.67 (1.80-8.00) K/mcL POC VBG pH (7.32-7.42) POC VBG pCO2 at Temp (41-51) POC VBG pO2 (25-40) POC VBG HCO3 (24-28) POC VBG Total CO2 (25-29) POC Venous O2 Sat (40-70) POC VBG Base Excess (-2-2) VBG Lactic Acid (0.5-2) POC Sodium (133-145) POC Potassium (3.3-5.1) POC Chloride (96-108) POC Total CO2 (22-30) POC Anion Gap (8.0-16.0) POC BUN (6-20) POC Creatinine (0.6-1.2) POC Glucose (70-105) POC WB Ioniz Calcium (1.16-1.32) Magnesium (1.6-2.5) mg/dL Total Bilirubin 0.9 (0.1-1.0) mg/dL Direct Bilirubin 0.4 H (<0.3) mg/dL AST 23 (<40) U/L ALT 16 (<40) U/L Alkaline Phosphatase 89 (39-117) U/L Total Protein 6.4 (5.9-8.4) gm/dL Albumin 3.6 (3.2-5.2) gm/dL Globulin 2.8 (2.2-3.7) gm/dL Procalcitonin 1.25 H (<0.10) ng/mL Urine Color Urine Appearance (Clear) Urine pH (5.0-9.0) Ur Specific [place] (1.000-1.035) Urine Protein (Negative) mg/dL Urine Glucose (UA) (Negative) mg/dL Urine Ketones (Negative) mg/dL Urine Occult Blood (Negative) mg/dL Urine Nitrate (Negative) Urine Bilirubin (Negative) mg/dL Urine Urobilinogen mg/dL Ur Leukocyte Esterase (Negative) /uL Urine RBC (0-3) /hpf Urine WBC (0-4) /hpf Ur Squamous Epith Cells (0-4) /hpf Ur Transition Epith Cell (0-2) /hpf Urine Bacteria (0) /hpf Urine Mucus (None) /hpf Ur Culture Indicated? 08/30/22 08/30/22 08/30/22 Range/Units 10:46 10:54 10:58 WBC (4.5-11.0) K/mcL RBC (4.63-6.08) M/mcL Hgb (13.7-17.5) g/dL Hct (40.1-51.0) % POC Hct 45.0 (41-55) MCV (80.0-100.0) fL MCH (26.0-34.0) pg MCHC (31.0-36.0) g/dL RDW (11.5-14.5) % Plt Count (140-440) K/mcL MPV (8.8-12.5) fL Immature Gran % (Auto) (0.0-0.5) % Neut % (Auto) (38.0-78.0) % Lymph % (Auto) (15.5-49.0) % Gregory % (Auto) (1.0-12.0) % Eos % (Auto) (0.0-7.0) % Baso % (Auto) (0.0-2.0) % Lymph # (Auto) (1.50-4.80) K/mcL Gregory # (Auto) (0.10-0.90) K/mcL Eos # (Auto) (0.00-0.70) K/mcL Baso # (Auto) (0.00-0.30) K/mcL Immature Gran # (0.00-0.05) K/mcl Absolute Neutrophils (1.80-8.00) K/mcL POC VBG pH 7.43 H (7.32-7.42) POC VBG pCO2 at Temp 40.3 L (41-51) POC VBG pO2 27 (25-40) POC VBG HCO3 27.0 (24-28) POC VBG Total CO2 28.0 (25-29) POC Venous O2 Sat 53.0 (40-70) POC VBG Base Excess 3.0 H (-2-2) VBG Lactic Acid 1.3 (0.5-2) POC Sodium 134 (133-145) POC Potassium 2.9 L* (3.3-5.1) POC Chloride 95 L (96-108) POC Total CO2 27.0 (22-30) POC Anion Gap 16.0 (8.0-16.0) POC BUN 15 (6-20) POC Creatinine 0.9 (0.6-1.2) POC Glucose 111 H (70-105) POC WB Ioniz Calcium 1.19 (1.16-1.32) Magnesium 1.7 (1.6-2.5) mg/dL Total Bilirubin (0.1-1.0) mg/dL Direct Bilirubin (<0.3) mg/dL AST (<40) U/L ALT (<40) U/L Alkaline Phosphatase (39-117) U/L Total Protein (5.9-8.4) gm/dL Albumin (3.2-5.2) gm/dL Globulin (2.2-3.7) gm/dL Procalcitonin (<0.10) ng/mL Urine Color Urine Appearance (Clear) Urine pH (5.0-9.0) Ur Specific [place] (1.000-1.035) Urine Protein (Negative) mg/dL Urine Glucose (UA) (Negative) mg/dL Urine Ketones (Negative) mg/dL Urine Occult Blood (Negative) mg/dL Urine Nitrate (Negative) Urine Bilirubin (Negative) mg/dL Urine Urobilinogen mg/dL Ur Leukocyte Esterase (Negative) /uL Urine RBC (0-3) /hpf Urine WBC (0-4) /hpf Ur Squamous Epith Cells (0-4) /hpf Ur Transition Epith Cell (0-2) /hpf Urine Bacteria (0) /hpf Urine Mucus (None) /hpf Ur Culture Indicated? 08/30/22 Range/Units 11:46 WBC (4.5-11.0) K/mcL RBC (4.63-6.08) M/mcL Hgb (13.7-17.5) g/dL Hct (40.1-51.0) % POC Hct (41-55) MCV (80.0-100.0) fL MCH (26.0-34.0) pg MCHC (31.0-36.0) g/dL RDW (11.5-14.5) % Plt Count (140-440) K/mcL MPV (8.8-12.5) fL Immature Gran % (Auto) (0.0-0.5) % Neut % (Auto) (38.0-78.0) % Lymph % (Auto) (15.5-49.0) % Gregory % (Auto) (1.0-12.0) % Eos % (Auto) (0.0-7.0) % Baso % (Auto) (0.0-2.0) % Lymph # (Auto) (1.50-4.80) K/mcL Gregory # (Auto) (0.10-0.90) K/mcL Eos # (Auto) (0.00-0.70) K/mcL Baso # (Auto) (0.00-0.30) K/mcL Immature Gran # (0.00-0.05) K/mcl Absolute Neutrophils (1.80-8.00) K/mcL POC VBG pH (7.32-7.42) POC VBG pCO2 at Temp (41-51) POC VBG pO2 (25-40) POC VBG HCO3 (24-28) POC VBG Total CO2 (25-29) POC Venous O2 Sat (40-70) POC VBG Base Excess (-2-2) VBG Lactic Acid (0.5-2) POC Sodium (133-145) POC Potassium (3.3-5.1) POC Chloride (96-108) POC Total CO2 (22-30) POC Anion Gap (8.0-16.0) POC BUN (6-20) POC Creatinine (0.6-1.2) POC Glucose (70-105) POC WB Ioniz Calcium (1.16-1.32) Magnesium (1.6-2.5) mg/dL Total Bilirubin (0.1-1.0) mg/dL Direct Bilirubin (<0.3) mg/dL AST (<40) U/L ALT (<40) U/L Alkaline Phosphatase (39-117) U/L Total Protein (5.9-8.4) gm/dL Albumin (3.2-5.2) gm/dL Globulin (2.2-3.7) gm/dL Procalcitonin (<0.10) ng/mL Urine Color Yellow Urine Appearance Hazy A (Clear) Urine pH 7.0 (5.0-9.0) Ur Specific [place] 1.015 (1.000-1.035) Urine Protein Negative (Negative) mg/dL Urine Glucose (UA) Negative (Negative) mg/dL Urine Ketones Negative (Negative) mg/dL Urine Occult Blood 0.03 (Negative) mg/dL Urine Nitrate Pos A (Negative) Urine Bilirubin Negative (Negative) mg/dL Urine Urobilinogen Negative mg/dL Ur Leukocyte Esterase 500 A (Negative) /uL Urine RBC 27 H (0-3) /hpf Urine WBC 147 H (0-4) /hpf Ur Squamous Epith Cells < 1 (0-4) /hpf Ur Transition Epith Cell 4 H (0-2) /hpf Urine Bacteria Few A (0) /hpf Urine Mucus Few A (None) /hpf Ur Culture Indicated? yes EKG Data EKG #1: EKG results narrative: ECG shows atrial fibrillation with RVR to 113 beats minute, normal axis, narrow QRS normal QTc. There is no ST segment deviations or hyperacute T waves. Compared to previous ECG done on 08/27/2022 morphology is the same and patient is still in A-fib with RVR. My interpretation is A-fib with RVR Discharge Plan Patient/Caregiver Discharge Instructions Pt seen by ANALYTICS INTERN/PA only: Yes Clinical Impression: Atrial fibrillation with rapid ventricular response, Hypokalemia, Bacteremia, Acute UTI Patient Disposition: Xfer As Inpt ([facility]) Discharge Date/Time: 08/30/22 15:47
[2022-08-30 11:02] LABS: POC Calcium, Ionized 1.19 (1.16-1.32); POC Creatinine 0.9 (0.6-1.2); POC Potassium 2.9 (3.3-5.1)
[2022-08-30] MEDS ORDERED: POTASSIUM CHLORIDE 20 MEQ TABLET PO ONE (11:06)
--- NOTE | 2022-08-30 11:42 | Cat Scan Report ---
INDICATION: LLQ pain,UTI, known L3mm stone. r/o obst stone COMPARISON: This examination dated 08/27/2022 TECHNIQUE: Axial images were obtained through the abdomen and pelvis. Sagittally and coronally reformatted images. FINDINGS: Lung bases:Centrilobular and paraseptal emphysema. There is mild honeycombing at the right lung base. There is mildly prominent reticular abnormality. Pulmonary fibrosis is possible. Liver:Negative to the limits of noncontrast enhanced examination. Liver contour is smooth without evidence for cirrhosis Gallbladder, bilary:No calcified gallstones. No gallbladder wall thickening. No pericholecystic fluid. No dilated bile ducts Spleen:No splenomegaly Pancreas:No pancreatic mass. No peripancreatic abnormality Adrenal glands:Negative Kidneys,ureters,bladder:Negative right kidney. No obstructing or nonobstructing calculi. No detectable mass. No hydronephrosis. 3 mm left lower pole renal calculus, unchanged. There is no hydronephrosis. No detectable renal mass. No hydroureter. No ureteral calculus. No bladder stone. No detectable bladder mass. Gastrointestinal:No colonic mass identified. There is no diverticulitis. No dilated small bowel. No mechanical small bowel obstruction. No bowel wall thickening Negative stomach and duodenum. No focal abnormality. Appendix: The appendix is normal Vascular:There is atherosclerotic calcification of the abdominal aorta. No abdominal aortic aneurysm. Origins of the celiac trunk and superior mesenteric artery appear normal without stenosis Lymphatic:No retroperitoneal adenopathy. No significant mesenteric adenopathy. Mesentery, peritoneum:No free intraperitoneal fluid. No intra-abdominal abscess. No pneumoperitoneum Reproductive:There is prostatic enlargement with mild elevation of the bladder floor Musculoskeletal:No lumbar compression fractures severe degenerative disc disease at T11-12 and L2-3. Sacrum and pelvis are negative. No hip fracture No anterior abdominal wall or inguinal hernia. IMPRESSION: 1. 3 mm left lower pole renal stone, unchanged since 08/27/2022 2. No hydronephrosis or hydroureter 3. Centrilobular emphysema. Mild pulmonary fibrosis suspected 4. Previous appendectomy The exam was performed using radiation dose optimization techniques including, but not limited to, automated exposure control, adjustment of the mA and/or kV according to patient size and use of iterative reconstruction technique. Interpreted and Authenticated by: Arnold Cuellar 08/30/22
[2022-08-30 11:53] LABS: Basophils # (Auto) 0.02 K/mcL (0.00-0.30); Basophils % (Auto) 0.3 % (0.0-2.0); Eosinophils # (Auto) 0.05 K/mcL (0.00-0.70); Eosinophils % (Auto) 0.7 % (0.0-7.0); Lymphocytes # (Auto) 0.19 K/mcL (1.50-4.80); Lymphocytes % (Auto) 2.7 % (15.5-49.0); Mean Cell Volume 91.5 fL (80.0-100.0); Mean Corpuscular HGB Conc 34.9 g/dL (31.0-36.0); Mean Platelet Volume 11.7 fL (8.8-12.5); Monocytes # (Auto) 0.12 K/mcL (0.10-0.90); Monocytes % (Auto) 1.7 % (1.0-12.0); Neutrophils % (Auto) 94.3 % (38.0-78.0); Platelet Count 131 K/mcL (140-440); Red Cell Distribution Width 12.2 % (11.5-14.5); WBC 7.1 K/mcL (4.5-11.0)
[2022-08-30 12:13] LABS: ALT/SGPT 16 U/L (<40); AST/SGOT 23 U/L (<40); Albumin 3.6 gm/dL (3.2-5.2); Alkaline Phosphatase 89 U/L (39-117); Bilirubin,Direct 0.4 mg/dL (<0.3); Bilirubin,Total 0.9 mg/dL (0.1-1.0); Globulin 2.8 gm/dL (2.2-3.7)
[2022-08-30 13:45] LABS: Appearance,Urine HAZY (Clear); Bacteria,Urine FEW /hpf (0); Bilirubin,Urine Negative (Negative); Color,Urine YELLOW; Culture Indicated,Urine yes; Glucose,Urine (UA) Negative (Negative); Ketones,Urine Negative (Negative); Leukocyte Esterase,Urine 500 /uL (Negative); Mucus,Urine FEW /hpf; Nitrate,Urine POS (Negative); Protein,Urine Negative (Negative); Specific Gravity,Urine 1.015 (1.000-1.035); Urine Blood 0.03 mg/dL (Negative); Urine RBC 27 /hpf (0-3); Urine Squamous Epithelial Cell < 1 /hpf (0-4); Urine Transitional Epi Cells 4 /hpf (0-2); Urine WBC 147 /hpf (0-4); Urobilinogen,Urine Negative
[2022-08-30] MEDS: CEFEPIME 1 GM VIAL IV SCH (14:41)
--- NOTE | 2022-08-30 14:44 | Internal Med History&Physical ---
HPI History of Present Illness Patient information: Note initiated : 08/30/22 at 2:29 pm Service Date, if different from initiated Date: [] Patient: Cesar Nassar 76 y/o M admitted on for Sepsis. Chief Complaint: [] History of present illness: The patient is a 76-year-old male with a history of COPD on O2 at nighttime only, chronic cough, history of irregular heartbeat, chronic L2-L3 discitis and osteomyelitis on suppressive therapy with dicloxacillin, hypertension, hyperlipidemia, left knee septic arthritis, chronic back pain, GERD, former smoker who initially presented on 08/27 with fever, chills and was found to have UTi, positive UA and A-fib with RVR. CT of the abdomen showed nonobstructing 3 mm left lower pole renal calculus. CT of the chest was negative for acute pathology. Patient was discharged home on Zithromax and p.o. metoprolol. Patient blood culture and urine culture from 08/27 came back positive for Klebsiella oxytoca not sensitive to azithromycin. He saw his primary care provider and was sent to ER.He reported he had an episode of hematuria few days ago which has since resolved. Patient reports he is having chills, left lower quadrant pain which is intermittent and comes and goes. He reports that the pa in usually just comes on when he urinates. He also reported urinary frequency, urgency and dysuria that has been worsening over the past 2 days. He had an episode of diarrhea on Monday but has not had any since. On presentation heart rate was 97-114, respiratory rate 23, blood pressure stable. Urine and blood culture positive for Klebsiella oxytoca from 08/27. WBC 7.1, hemoglobin 15, lactic acid 1.3, procalcitonin 1.25, normal creatinine, potassium 2.9, UA positive for nitrate, leukocyte esterase, RBC, WBC, bacteria. CT scan abdomen and pelvis with contrast again demonstrated 3 mm left lower pole renal stone, unchanged from 08/27. No hydronephrosis or hydroureter. Blood cultures were ordered and pending. Review of system He reports increased urinary frequency and dysuria, no more hematuria, no melena, no hematochezia. He reports chills but no documented fever. No nausea or vomiting. Left lower abdominal pain which is mild, no CVA pain. Denies any skin rashes. Denies any depression, this denies any joint pain or swelling. Physical examination General: Alert, in no acute distress Head: No trauma normocephalic Eyes: PERRLA, EOMs intact no scleral icterus or scleral injection Neck: Full range of motion, no midline tenderness ENT: Moist mucous membranes, uvula is midline. Cardiovascular: Tachycardia irregularly irregular Respiratory: No rhonchi rales or wheezes, no respiratory distress, poor aeration in upper lung thorpe Abdomen pelvis: Abdomen is soft and nontender to palpation. There is no guarding no rebound tenderness. Negative Valerio sign. No tenderness over McBurney's point. Back: Negative CVA tenderness bilaterally Neuro: Patient is alert and oriented x3 Psych: Normal affect, normal mood Skin: Warm, no rash, normal color Assessment and plan Sepsis, patient presented with tachycardia heart rate 97-114, respiratory rate 23 and confirmed UTI and bacteremia Urinary tract infection, urine culture growing Klebsiella oxytoca. Repeat blood cultures ordered. Urine culture is cooking. Per sensitivity, will give cefepime twice daily. Bacteremia. Blood culture and urine culture positive for Klebsiella oxytoca from 08/27 Left renal stone. 3 mm renal nonobstructing stone. Patient may pass urine stone. Encourage hydration. Will give him IV fluids. Outpatient urology fo llow-up Atrial fibrillation with RVR. Will start on p.o. metoprolol. Will discuss anticoagulation later Hypokalemia. Will replace with p.o. and IV KCl. Will obtain magnesium level COPD. Continue nebulization therapy Chronic hypoxic respiratory failure. On O2 at nighttime L2-L3 discitis and osteomyelitis, continue suppressive therapy with dicloxacillin Hypertension. Continue with antihypertensives Hyperlipidemia. Continue with rosuvastatin and phenol fibrate Insomnia continue trazodone GERD continue with PPI Chronic back pain, continue methocarbamol and tramadol DVT prophylaxis with SCDs Full code Total time taken 45 minutes PFSH PFS All Active Problems (Updated 08/30/22 @ 13:57 by Pernell Miranda PA-C) Atrial fibrillation with rapid ventricular response (Acute) Hypokalemia (Acute) Bacteremia (Acute) Acute UTI (Acute) Sepsis (Acute) Atrial fibrillation with RVR (Acute) Acute hemorrhagic cystitis (Acute) COPD exacerbation (Acute) GERD (gastroesophageal reflux disease) (Acute) Fatigue (Acute) Nocturnal hypoxia (Chronic) Postnasal drip (Chronic) Dysphagia (Chronic) Dyspnea (Chronic) History of foot surgery (Acute) Chronic cough (Chronic) Cough (Acute) Medicare annual wellness visit, subsequent (Acute) Neuropathy (Chronic) Strain of lumbar region (Acute) Thoracic back pain (Acute) Septic discitis of lumbar region (Acute) Pressure ulcer of foot, stage 2 (Acute) Low back pain (Acute) Pain crisis (Acute) Discitis (Acute) Drug intolerance (Acute) History of malnutrition (Acute) History of infection of total joint prosthesis of knee (Acute) History of reverse total replacement of left shoulder joint (Acute) Hypokalemia (Acute) Hospital discharge follow-up (Acute) Discitis, unspecified, lumbar region (Acute) Osteomyelitis due to Staphylococcus aureus (Acute) Back pain (Acute) Rosacea (Chronic) COPD (chronic obstructive pulmonary disease) (Chronic) Wellness examination (Chronic) History of tobacco abuse (Chronic) Joint pain (Chronic) Hyperlipidemia (Chronic) Hypertension, essential (Chronic) Irregular heart beat (Chronic ~2006) Lung disorder (Chronic) Effusion, right knee (Acute) Medical History Back pain Chronic cough COPD (chronic obstructive pulmonary disease) COPD exacerbation Cough Discitis, unspecified, lumbar region Dysphagia Dyspnea Effusion, right knee Fatigue GERD (gastroesophageal reflux disease) History of tobacco abuse Hyperlipidemia Hypertension, essential Hypokalemia Irregular heart beat (~2006) Joint pain Lung disorder Medicare annual wellness visit, subsequent Neuropathy Nocturnal hypoxia Osteomyelitis due to Staphylococcus aureus Postnasal drip Rosacea Rosacea Sepsis Wellness examination 02/08/17 Surgical History H/O rotator cuff surgery 2007 x2 History of foot surgery multiple History of hernia repair History of total left knee replacement 2011 Hx of appendectomy 2005 S/P herniorrhaphy 1969's S/P shoulder joint replacement 04/2019 Dr. Waldrop Status post right partial knee replacement 2015 Family History Father , age 80 Arthritis Diabetes Staph infection Sister Breast cancer Social History marital status: smoking status: Never smoker smoking status start date: 03/27/1968 smoking status stop date: 03/27/98 alcohol intake frequency: 0-2 drinks per day substance use type: does not use MEDS/ALLERGIES Home Medications and Allergies Home Medications Medication Instructions Recorded Confirmed Type methocarbamol 500 mg tablet See Rx Instructions .Route 04/19/22 08/30/22 Rx .COMPLEX #90 tabs tramadol 50 mg tablet 50 mg PO Q4-6H PRN pain #120 tabs 06/02/22 08/30/22 Rx fenofibrate micronized 134 mg 134 mg PO HS #90 caps 06/07/22 08/30/22 Rx capsule irbesartan 150 1 tab PO QDAY #90 tabs 06/29/22 08/30/22 Rx mg-hydrochlorothiazide 12.5 mg tablet rosuvastatin 5 mg tablet 5 mg PO HS cholesterol #90 tabs 07/08/22 08/30/22 Rx azithromycin 250 mg tablet 250 mg PO QDAY 4 days #4 tabs 08/27/22 08/30/22 Rx metoprolol succinate 25 mg 25 mg PO QDAY #30 tabs 08/27/22 08/30/22 Rx tablet,extended release 24 hr dicloxacillin 500 mg capsule 500 mg PO BID 08/30/22 08/30/22 History hydrocodone-chlorpheniramine 5 ml PO Q12HP PRN cough 08/30/22 08/30/22 History omeprazole 20 mg capsule,delayed 20 mg PO QHS 08/30/22 08/30/22 History release trazodone 100 mg tablet 200 mg PO HS insomnia 08/30/22 08/30/22 History Allergies Allergy/AdvReac Type Severity Reaction Status Date / Time lorazepam AdvReac Mild Severe Verified 08/30/22 09:21 agression EXAM Constitutional Vitals: Temp Pulse Resp BP Pulse Ox O2 Del Method 99 F 101 H 23 H 150/99 96 Room Air 08/30/22 11:10 08/30/22 13:16 08/30/22 13:16 08/30/22 13:16 08/30/22 13:16 08/30/22 10:14 DATA Data Completed and Pending Labs: Labs from last 24 hours 08/30/22 08/30/22 08/30/22 11:46 10:58 10:54 WBC RBC Hgb Hct POC Hct 45.0 MCV MCH MCHC RDW Plt Count MPV Immature Gran % (Auto) Neut % (Auto) Lymph % (Auto) [place] % (Auto) Eos % (Auto) Baso % (Auto) Lymph # (Auto) [place] # (Auto) Eos # (Auto) Baso # (Auto) Immature Gran # Absolute Neutrophils POC VBG pH 7.43 H POC VBG pCO2 at Temp 40.3 L POC VBG pO2 27 POC VBG HCO3 27.0 POC VBG Total CO2 28.0 POC Venous O2 Sat 53.0 POC VBG Base Excess 3.0 H VBG Lactic Acid 1.3 POC Sodium 134 POC Potassium 2.9 L* POC Chloride 95 L POC Total CO2 27.0 POC Anion Gap 16.0 POC BUN 15 POC Creatinine 0.9 POC Glucose 111 H POC WB Ioniz Calcium 1.19 Total Bilirubin Direct Bilirubin AST ALT Alkaline Phosphatase Total Protein Albumin Globulin Procalcitonin Urine Color Yellow Urine Appearance Hazy A Urine pH 7.0 Ur Specific [place] 1.015 Urine Protein Negative Urine Glucose (UA) Negative Urine Ketones Negative Urine Occult Blood 0.03 Urine Nitrate Pos A Urine Bilirubin Negative Urine Urobilinogen Negative Ur Leukocyte Esterase 500 A Urine RBC 27 H Urine WBC 147 H Ur Squamous Epith Cells < 1 Ur Transition Epith Cell 4 H Urine Bacteria Few A Urine Mucus Few A Ur Culture Indicated? yes 08/30/22 08/30/22 08/30/22 10:46 10:46 10:46 WBC 7.1 RBC 4.70 Hgb 15.0 Hct 43.0 POC Hct MCV 91.5 MCH 31.9 MCHC 34.9 RDW 12.2 Plt Count 131 L MPV 11.7 Immature Gran % (Auto) 0.3 Neut % (Auto) 94.3 H Lymph % (Auto) 2.7 L [place] % (Auto) 1.7 Eos % (Auto) 0.7 Baso % (Auto) 0.3 Lymph # (Auto) 0.19 L [place] # (Auto) 0.12 Eos # (Auto) 0.05 Baso # (Auto) 0.02 Immature Gran # 0.02 Absolute Neutrophils 6.67 POC VBG pH POC VBG pCO2 at Temp POC VBG pO2 POC VBG HCO3 POC VBG Total CO2 POC Venous O2 Sat POC VBG Base Excess VBG Lactic Acid POC Sodium POC Potassium POC Chloride POC Total CO2 POC Anion Gap POC BUN POC Creatinine POC Glucose POC WB Ioniz Calcium Total Bilirubin 0.9 Direct Bilirubin 0.4 H AST 23 ALT 16 Alkaline Phosphatase 89 Total Protein 6.4 Albumin 3.6 Globulin 2.8 Procalcitonin 1.25 H Urine Color Urine Appearance Urine pH Ur Specific [place] Urine Protein Urine Glucose (UA) Urine Ketones Urine Occult Blood Urine Nitrate Urine Bilirubin Urine Urobilinogen Ur Leukocyte Esterase Urine RBC Urine WBC Ur Squamous Epith Cells Ur Transition Epith Cell Urine Bacteria Urine Mucus Ur Culture Indicated? A/P Time Spent With Patient Time: Total time spent is greater than 50% in coordination of care (as documented) at patient's floor/unit and/or counseling patient:
[2022-08-30] MEDS ORDERED: IPRATROPIUM/ALBUTEROL 3 ML AMPUL.NEB NEB ONE (15:18)
[2022-08-30] MEDS ORDERED: SENNOSIDES 1 TABLET PO PRN (15:54)
[2022-08-30] MEDS ORDERED: [UNRECOGNIZED DRUG - OTHER] PO PRN (15:54)
[2022-08-30] MEDS ORDERED: CHLORPHENIRAMINE PO PRN (15:54)
[2022-08-30] MEDS ORDERED: METHOCARBAMOL 500 MG TABLET PO PRN (15:54)
[2022-08-30] MEDS ORDERED: LACTULOSE 20 GM/30 ML ORAL.SOL PO PRN (15:54)
[2022-08-30] MEDS ORDERED: ACETAMINOPHEN 325 MG TABLET PO PRN (15:54)
[2022-08-30] MEDS ORDERED: HYDROCODONE PO PRN (15:54)
[2022-08-30] MEDS: LACTATED RINGERS 1,000 ML IV SCH (16:12)
[2022-08-30] MEDS: IPRATROPIUM/ALBUTEROL 3 ML AMPUL.NEB NEB SCH ×2 (16:22→21:12)
[2022-08-30] MEDS: BUDESONIDE 0.5 MG/2 ML AMPUL.NEB NEB SCH ×3 (16:39→21:12)
[2022-08-30] MEDS: METOPROLOL TARTRATE 25 MG TABLET PO SCH ×2 (17:17→21:34)
[2022-08-30] MEDS: traMADol 50 MG TABLET PO PRN (21:00)
[2022-08-30] MEDS ORDERED: MAGNESIUM SULFATE 24.36 MEQ in DEXTROSE 5% IN WATER 50 ML IV ONE (21:09)
[2022-08-30] MEDS ORDERED: MAGNESIUM SULFATE 8.12 MEQ/2 ML VIAL ONE (21:28)
[2022-08-30] MEDS: ATORVASTATIN 10 MG TABLET PO SCH (21:34)
[2022-08-30] MEDS: DOCUSATE SODIUM 100 MG CAPSULE PO SCH (21:34)
[2022-08-30] MEDS: FENOFIBRATE 43 MG CAPSULE PO SCH (21:34)
[2022-08-30] MEDS: 0.9 % SODIUM CHLORIDE 10 ML SYRINGE IV SCH (21:48)
[2022-08-31] MEDS: CEFEPIME 1 GM VIAL IV SCH ×3 (00:09→20:49)
[2022-08-31] MEDS: LACTATED RINGERS 1,000 ML IV SCH ×2 (04:00→17:50)
[2022-08-31] MEDS: 0.9 % SODIUM CHLORIDE 10 ML SYRINGE IV SCH ×3 (05:45→20:50)
[2022-08-31] MEDS: ONDANSETRON 4 MG/2 ML VIAL IV PRN ×3 (07:28→18:59)
[2022-08-31] MEDS: IPRATROPIUM/ALBUTEROL 3 ML AMPUL.NEB NEB SCH ×3 (08:03→22:51)
[2022-08-31] MEDS: BUDESONIDE 0.5 MG/2 ML AMPUL.NEB NEB SCH (08:03)
[2022-08-31] MEDS: OMEPRAZOLE 20 MG CAPSULE PO SCH (09:01)
[2022-08-31] MEDS: DOCUSATE SODIUM 100 MG CAPSULE PO SCH ×2 (09:01→20:49)
[2022-08-31] MEDS: METOPROLOL TARTRATE 25 MG TABLET PO SCH ×3 (09:01→20:50)
[2022-08-31] MEDS ORDERED: CALCIUM CARBONATE 500 MG TAB.CHEW CHEWED SCH (12:00)
--- NOTE | 2022-08-31 13:08 | Internal Med Progress Note ---
SUBJECTIVE Subjective Patient information: Note initiated : 08/31/22 at 1:07 pm Service Date, if different from initiated Date: [] Patient: Cesar Nassar 76 y/o M admitted on 08/30/22 for Sepsis. Chief Complaint: [] Additional PMFSH (Level 3 Only): The patient is a 76-year-old male with a history of COPD on O2 at nighttime only, chronic cough, history of irregular heartbeat, chronic L2-L3 discitis and osteomyelitis on suppressive therapy with dicloxacillin, hypertension, hyperlipidemia, left knee septic arthritis, chronic back pain, GERD, former smoker who initially presented on 08/27 with fever, chills and was found to have UTi, positive UA and A-fib with RVR. CT of the abdomen showed nonobstructing 3 mm left lower pole renal calculus. CT of the chest was negative for acute pathology. Patient was discharged home on Zithromax and p.o. metoprolol. Patient blood culture and urine culture from 08/27 came back positive for Klebsiella oxytoca not sensitive to azithromycin. He saw his primary care provider and was sent to ER.He reported he had an episode of hematuria few days ago which has since resolved. Patient reports he is having chills, left lower quadrant pain which is intermittent and comes and goes. He reports that the pain usually just comes on when he urinates. He also reported urinary frequency, urgency and dysuria that has been worsening over the past 2 days. He had an episode of diarrhea on Monday but has not had any since. On presentation heart rate was 97-114, respiratory rate 23, blood pressure stabl e. Urine and blood culture positive for Klebsiella oxytoca from 08/27. WBC 7.1, hemoglobin 15, lactic acid 1.3, procalcitonin 1.25, normal creatinine, potassium 2.9, UA positive for nitrate, leukocyte esterase, RBC, WBC, bacteria. CT scan abdomen and pelvis with contrast again demonstrated 3 mm left lower pole renal stone, unchanged from 08/27. No hydronephrosis or hydroureter. Blood cultures were ordered and pending. 08/31. No fever overnight, tachycardia is improving. Leukocytosis remains absent. He is tolerating antibiotics. Lab work from this morning not available Review of system No urinary frequency no dysuria, no more hematuria, no melena, no hematochezia. No reported fever. no nausea or vomiting. Left lower abdominal pain which is mild, no CVA pain. Denies any skin rashes. Denies any depression, this denies any joint pain or swelling. Urine culture pending. Heart rate 115-120 this morning however has not received his metoprolol yet. Discussed anticoagulation, he elected for Eliquis Physical examination General: Alert, in no acute distress Head: No trauma normocephalic Eyes: PERRLA, EOMs intact no scleral icterus or scleral injection Neck: Full range of motion, no midline tenderness ENT: Moist mucous membranes, uvula is midline. Cardiovascular: Tachycardia irregularly irregular Respiratory: No rhonchi rales or wheezes, no respiratory distress, poor aeration in upper lung thorpe Abdomen pelvis: Abdomen is soft and nontender to palpation. There is no guarding no rebound tenderness. Negative Valerio sign. No tenderness over McBurney's point. Back: Negative CVA tenderness bilaterally Neuro: Patient is alert and oriented x3 Psych: Normal affect, normal mood Skin: Warm, no rash, normal color Assessment and plan Sepsis, patient presented with tachycardia heart rate 97-114, respiratory rate 23 and confirmed UTI and bacteremia Urinary tract infection, urine culture growing Klebsiella oxytoca. Repeat blood cultures and urine culture pending. Per sensitivity, will give cefepime twice daily. Bacteremia. Blood culture and urine culture positive for Klebsiella oxytoca fro m 6/3 Left renal stone. 3 mm renal nonobstructing stone. Patient may pass urine stone. Encourage hydration. Will give him IV fluids. Outpatient urology follow-up Atrial fibrillation with RVR.On p.o. metoprolol. Discussed anticoagulation, he elected for Eliquis. Hypokalemia. This was replaced, will recheck Hypomagnesemia. This was replaced. We will recheck COPD. Continue nebulization therapy Chronic hypoxic respiratory failure. On O2 at nighttime L2-L3 discitis and osteomyelitis, continue suppressive therapy with dicloxacillin Hypertension. Continue with antihypertensives Hyperlipidemia. Continue with rosuvastatin and phenol fibrate Insomnia continue trazodone GERD continue with PPI Chronic back pain, continue methocarbamol and tramadol DVT prophylaxis with SCDs Full code Total time taken 45 minutes Constitutional Vitals: Vital Signs Temp Pulse Resp BP Pulse Ox O2 Del Method O2 Flow Rate 97.5 F 79 14 130/97 95 Room Air 0 08/31/22 12:01 08/31/22 12:01 08/31/22 12:01 08/31/22 12:01 08/31/22 12:01 08/31/22 12:01 08/31/22 08:05 Period Temp Pulse Resp BP Sys/Cote Pulse Ox O2 Del Method O2 Flow Rate Last 24 Hr 96.8 F-99 F 75-114 12-27 120-155/66-104 89-100 Room Air-Room Air 0-0 Intake and Output 08/31/22 08/31/22 08/31/22 03:59 11:59 19:59 Intake Total 656 1285 Output Total 425 425 Balance 231 860 Weight 83.688 kg 83.688 kg Patient Weight 09/01/22 03:59 Weight 83.688 kg Intake & Output: Intake & Output 08/31/22 08/31/22 08/31/22 03:59 11:59 19:59 Intake Total 656 1285 Output Total 425 425 Balance 231 860 Weight 83.688 kg 83.688 kg Intake: IV 56 885 Lactated Ringers 1,000 ml @ 75 885 mls/hr IV .[id number] [facility] Rx#: [id number] Magnesium Sulfate 24.36 Meq In 56 Dextrose 5% in Water 50 ml @ 19 mls/hr IV ONCE ONE Rx#: [id number] Oral 600 400 Output: Void Amount 425 425 Other: Meal Breakfast Percent of Meal Consumed 25% Feeding Ability Independent Urine Appearance Clear Clear Urine Color Yellow Yellow Pale Urine Odor Normal Normal Stool Size Moderate Stool Color Brown Stool Consistency Formed # Bowel Movements 1 # of times incontinent of 0 Bowels OBJ DATA Labs 08/30/22 10:46 Labs: Abnormal Lab Results 08/30/22 08/30/22 08/30/22 11:46 10:58 10:54 Plt Count Neut % (Auto) Lymph % (Auto) Lymph # (Auto) POC VBG pH 7.43 H POC VBG pCO2 at Temp 40.3 L POC VBG Base Excess 3.0 H POC Potassium 2.9 L* POC Chloride 95 L POC Glucose 111 H Direct Bilirubin Procalcitonin Urine Appearance Hazy A Urine Nitrate Pos A Ur Leukocyte Esterase 500 A Urine RBC 27 H Urine WBC 147 H Ur Transition Epith Cell 4 H Urine Bacteria Few A Urine Mucus Few A 0608/30/22 08/30/22 10:46 10:46 10:46 Plt Count 131 L Neut % (Auto) 94.3 H Lymph % (Auto) 2.7 L Lymph # (Auto) 0.19 L POC VBG pH POC VBG pCO2 at Temp POC VBG Base Excess POC Potassium POC Chloride POC Glucose Direct Bilirubin 0.4 H Procalcitonin 1.25 H Urine Appearance Urine Nitrate Ur Leukocyte Esterase Urine RBC Urine WBC Ur Transition Epith Cell Urine Bacteria Urine Mucus Meds: Medications Acetaminophen (Acetaminophen 325 Mg Tablet) 650 mg PO Q6HP PRN; Protocol PRN Reason: Per Pain Protocol/Fever > 101 Last Admin: 08/31/22 02:18 Dose: 650 mg Albuterol/Ipratropium (Ipratropium/Albuterol 3 Ml Ampul.Neb) 3 ml NEB QID [facility] Last Admin: 08/31/22 08:03 Dose: 3 ml Atorvastatin Calcium (Atorvastatin 10 Mg Tablet) 10 mg PO [facility] Last Admin: 08/30/22 21:34 Dose: 10 mg Budesonide (Budesonide 0.5 Mg/2 Ml Ampul.Neb) 0.5 mg NEB Q12 [facility] Last Admin: 08/31/22 08:03 Dose: 0.5 mg Calcium Carbonate/Glycine (Calcium Carbonate 500 Mg Tab.Chew) 500 mg CHEWED TIDCC [facility] Last Admin: 08/31/22 12:10 Dose: 500 mg Cefepime HCl (Cefepime 1 Gm Vial) 1 gm IV Q12H [facility]; Protocol Last Admin: 08/31/22 09:01 Dose: 1 gm Docusate Sodium (Docusate Sodium 100 Mg Capsule) 100 mg PO BID [facility] Last Admin: 08/31/22 09:01 Dose: Not Given Fenofibrate (Fenofibrate 43 Mg Capsule) 129 mg PO HS [facility] Last Admin: 08/30/22 21:34 Dose: 129 mg Lactated Ringer's (Lactated Ringers) 1,000 mls @ 75 mls/hr IV .[id number] [facility] Last Admin: 08/31/22 04:00 Dose: 75 mls/hr Lactulose (Lactulose 20 Gm/30 Ml Oral.Belkis) 10 gm PO DAILYP PRN PRN Reason: Constipation Methocarbamol (Methocarbamol 500 Mg Tablet) 500 mg PO TIDP PRN PRN Reason: Muscle Spasm Metoprolol Tartrate (Metoprolol Tartrate 25 Mg Tablet) 12.5 mg PO TID [facility] Last Admin: 08/31/22 09:01 Dose: 12.5 mg Omeprazole (Omeprazole 20 Mg Capsule) 20 mg PO QDAY [facility] Last Admin: 08/31/22 09:01 Dose: 20 mg Ondansetron HCl (Ondansetron 4 Mg/2 Ml Vial) 4 mg IV Q4HP PRN; Protocol PRN Reason: Nausea And Vomiting Last Admin: 08/31/22 12:10 Dose: 4 mg Senna (Sennosides 1 Tablet) 2 tab PO HSP PRN PRN Reason: Constipation Sodium Chloride (0.9 % Sodium Chloride 10 Ml Syringe) 10 ml IV Q8 [facility] Last Admin: 08/31/22 05:45 Dose: Not Given Tramadol HCl (Tramadol 50 Mg Tablet) 50 mg PO Q4-6HP PRN PRN Reason: Pain Last Admin: 08/30/22 21:00 Dose: 50 mg Trazodone HCl (Trazodone Hcl 100 Mg Tablet) 100 mg PO [facility] A/P Time Spent With Patient Time: Total time spent is greater than 50% in coordination of care (as documented) at patient's floor/unit and/or counseling patient: QUALITY VTE Deep Vein Thrombosis/Pulmonary Embolism Present on Admission: No
[2022-08-31] MEDS ORDERED: LOPERAMIDE 2 MG CAPSULE PO PRN (13:47)
[2022-08-31] MEDS ORDERED: CALCIUM CARBONATE 500 MG TAB.CHEW CHEWED PRN (14:22)
[2022-08-31] MEDS: traMADol 50 MG TABLET PO PRN ×2 (15:13→18:57)
[2022-08-31 15:16] LABS: ALT/SGPT 24 U/L (<40); AST/SGOT 35 U/L (<40); Albumin 3.5 gm/dL (3.2-5.2); Albumin/Globulin Ratio 1.3 (1.0-2.3); Alkaline Phosphatase 65 U/L (39-117); Bilirubin,Total 0.4 mg/dL (0.1-1.0); Blood Urea Nitrogen 10 mg/dL (8-23); Calcium 9.4 mg/dL (8.6-10.4); Carbon Dioxide 27 mmol/L (22-30); Chloride 95 mmol/L (96-108); Globulin 2.8 gm/dL (2.2-3.7); Glomerular Filtration Rate 86; Glucose 135 mg/dL (70-105)
[2022-08-31] MEDS ORDERED: IPRATROPIUM/ALBUTEROL 3 ML AMPUL.NEB NEB PRN (20:36)
[2022-08-31] MEDS: ATORVASTATIN 10 MG TABLET PO SCH (20:49)
[2022-08-31] MEDS: FENOFIBRATE 43 MG CAPSULE PO SCH (20:49)
[2022-08-31] MEDS: LACTOBACILLUS 1 CAPSULE PO SCH (20:49)
[2022-08-31] MEDS ORDERED: traZODone HCL 100 MG TABLET PO SCH (21:00)
[2022-08-31] MEDS ORDERED: guaiFENesin/CODEINE 10 ML UDC PO PRN (21:10)
[2022-08-31] MEDS ORDERED: [UNRECOGNIZED DRUG - OTHER] PO PRN (21:11)
[2022-08-31] MEDS: guaiFENesin 600 MG TAB.SR.12H PO SCH (21:21)
[2022-09-01] MEDS: traMADol 50 MG TABLET PO PRN ×3 (02:56→13:18)
[2022-09-01] MEDS: 0.9 % SODIUM CHLORIDE 10 ML SYRINGE IV SCH ×2 (05:13→13:18)
[2022-09-01] MEDS: LACTOBACILLUS 1 CAPSULE PO SCH (09:11)
[2022-09-01] MEDS: DOCUSATE SODIUM 100 MG CAPSULE PO SCH (09:11)
[2022-09-01] MEDS: METOPROLOL TARTRATE 25 MG TABLET PO SCH (09:11)
[2022-09-01] MEDS: guaiFENesin 600 MG TAB.SR.12H PO SCH (09:12)
[2022-09-01] MEDS: OMEPRAZOLE 20 MG CAPSULE PO SCH (09:12)
[2022-09-01] MEDS: CEFEPIME 1 GM VIAL IV SCH (09:12)
[2022-09-01 09:16] LABS: Basophils # (Auto) 0.04 K/mcL (0.00-0.30); Basophils % (Auto) 0.6 % (0.0-2.0); Eosinophils % (Auto) 2.8 % (0.0-7.0); Hematocrit 40.6 % (40.1-51.0); Hemoglobin 14.3 g/dL (13.7-17.5); Lymphocytes # (Auto) 0.97 K/mcL (1.50-4.80); Lymphocytes % (Auto) 13.8 % (15.5-49.0); Mean Cell Volume 90.8 fL (80.0-100.0); Mean Corpuscular HGB Conc 35.2 g/dL (31.0-36.0); Monocytes # (Auto) 0.69 K/mcL (0.10-0.90); Monocytes % (Auto) 9.8 % (1.0-12.0); Platelet Count 180 K/mcL (140-440); RBC 4.47 M/mcL (4.63-6.08); Red Cell Distribution Width 12.4 % (11.5-14.5)
[2022-09-01 09:52] LABS: ALT/SGPT 25 U/L (<40); AST/SGOT 29 U/L (<40); Albumin 3.5 gm/dL (3.2-5.2); Albumin/Globulin Ratio 1.3 (1.0-2.3); Alkaline Phosphatase 65 U/L (39-117); Bilirubin,Total 0.4 mg/dL (0.1-1.0); Blood Urea Nitrogen 7 mg/dL (8-23); Calcium 9.3 mg/dL (8.6-10.4); Carbon Dioxide 27 mmol/L (22-30); Chloride 96 mmol/L (96-108); Globulin 2.6 gm/dL (2.2-3.7); Glomerular Filtration Rate 97; Glucose 104 mg/dL (70-105)
[2022-09-01] MEDS ORDERED: APIXABAN 5 MG TABLET PO SCH (11:00)
--- NOTE | 2022-09-01 14:08 | Discharge Summary ---
Discharge Provider Provider IMPORTANT FOLLOW-UP INFORMATION FOR PCP: Patient information: Note initiated : 09/01/22 at 2:06 pm Service Date, if different from initiated Date: [] Patient: Cesar Nassar 76 y/o M admitted on 08/30/22 for Sepsis. Chief Complaint: [] Date of admission: 08/30/22 15:47 Discharge date: 09/01/22 Consults: 08/30/22 Consult to Physician [CONS] Stat Comment: Consulting Provider: Rafael Griffin Reason For Exam: Physician to Consult COURSE Hospital Course Hospital course: The patient is a 76-year-old male with a history of COPD on O2 at nighttime only, chronic cough, history of irregular heartbeat, chronic L2-L3 discitis and osteomyelitis on suppressive therapy with dicloxacillin, hypertension, hyperlipidemia, left knee septic arthritis, chronic back pain, GERD, former smoker who initially presented on 08/27 with fever, chills and was found to have UTI, positive UA and A-fib with RVR. CT of the abdomen showed nonobstructing 3 mm left lower pole renal calculus. CT of the chest was negative for acute pathology. Patient was discharged home on Zithromax and p.o. metoprolol. Patient blood culture and urine culture from 08/27 came back positive for Klebsiella oxytoca not sensitive to azithromycin. He saw his primary care provider and was sent to ER. He reported he had an episode of hematuria few days ago which has since resolved. Patient reported having chills, left lower quadrant pain which was intermittent and comes and goes. He also reported urinary frequency, urgency and dysuria that had been worsening over the past 2 days. He had an episode of diarrhea on Monday but has not had any since. On presentation heart rate was 97-114, respiratory rate 23, blood pressure stable. Urine and blood culture positive for Klebsiella oxytoca from 08/27. WBC 7.1, hemoglobin 15, lactic acid 1.3, procalcitonin 1.25, normal creatinine, potassium 2.9, UA positive for nitrate, leukocyte esterase, RBC, WBC, bacteria. CT scan abdomen and pelvis with contrast again demonstrated 3 mm left lower pole renal stone, unchanged from 08/27. No hydronephrosis or hydroureter. Repeat blood cultures were ordered. Blood culture and urine culture from 08/27 grew Klebsiella oxytoca. Per available sensitivity data patient received cefepime twice daily. Blood cultures from 08/30 negative after 48 hours, urine culture again grew Klebsiella oxytoca with similar sensitivities. Patient sepsis resolved, tachycardia improved. He remained afebrile. Patient will be transition to cefdinir 300 mg twice daily per blood culture sensitivities from 08/27. Recommend he follow-up with urology as an outpatient for his nonobstructing renal stone. Encouraged him to keep himself well-hydrated. A-fib rate controlled on metoprolol, anticoagulation was discussed and patient elected for Eliquis. Echocardiogram was completed which showed normal left ventricle systolic function EF 60-65%, moderate biatrial enlargement no significant valvular dysfunction. Discharge diagnoses Sepsis, patient presented with tachycardia heart rate 97-114, respiratory rate 23 and confirmed UTI and bacteremia Urinary tract infection, urine culture with Klebsiella oxytoca. Patient receive d cefepime and will be transition to cefdinir upon discharge per sensitivity data from 08/27 to complete a total of 10-day course Bacteremia. Blood culture and urine culture positive for Klebsiella oxytoca from 08/27. Blood cultures from 08/30 negative after 48 hours. Left renal stone. 3 mm renal nonobstructing stone. Patient may pass urine stone. Encourage adequate hydration. Outpatient urology follow-up Atrial fibrillation with RVR.On p.o. metoprolol. Discussed anticoagulation, he elected for Eliquis. Hypokalemia. Corrected Hypomagnesemia. Replaced COPD. Continue nebulization therapy Chronic hypoxic respiratory failure. On O2 at nighttime L2-L3 discitis and osteomyelitis, continue suppressive therapy with dicloxacillin Hypertension. Continue with antihypertensives Hyperlipidemia. Continue with rosuvastatin and phenol fibrate Insomnia continue trazodone GERD continue with PPI Chronic back pain, continue methocarbamol and tramadol Full code Physical examination General: Alert, in no acute distress Head: No trauma normocephalic Eyes: PERRLA, EOMs intact no scleral icterus or scleral injection Neck: Full range of motion, no midline tenderness ENT: Moist mucous membranes, uvula is midline. Cardiovascular: S1 and S2, no murmurs heard Respiratory: Chest is clear bilaterally Abdomen pelvis: Abdomen is soft and nontender Back: Negative CVA tenderness bilaterally Neuro: Patient is alert and oriented x3 Psych: Normal affect, normal mood Skin: Warm, no rash, normal color Total time taken 45 minutes Discharge diagnosis: Sepsis, Klebsiella bacteremia, UTI, A-fib Time Spent with Patient Time attestation: Total time spent providing and/or coordinating discharge services: Time spent: Greater than 30 minutes EXAM Constitutional Vitals: Temp Pulse Resp BP Pulse Ox O2 Del Method O2 Flow Rate 98.2 F 87 18 154/107 96 Room Air 0 09/01/22 08:01 09/01/22 07:33 09/01/22 10:01 09/01/22 10:01 09/01/22 10:01 09/01/22 10:01 08/31/22 08:05 Discharge Data Data Completed and Pending Labs on day of discharge: Labs from last 24 hours 09/01/22 09/01/22 08/31/22 08:20 08:20 14:11 WBC 7.0 RBC 4.47 L Hgb 14.3 Hct 40.6 MCV 90.8 MCH 32.0 MCHC 35.2 RDW 12.4 Plt Count 180 MPV 12.0 Immature Gran % (Auto) 1.0 H Neut % (Auto) 72.0 Lymph % (Auto) 13.8 L Barry % (Auto) 9.8 Eos % (Auto) 2.8 Baso % (Auto) 0.6 Lymph # (Auto) 0.97 L Barry # (Auto) 0.69 Eos # (Auto) 0.20 Baso # (Auto) 0.04 Immature Gran # 0.07 H Absolute Neutrophils 5.06 Sodium 133 132 L Potassium 3.3 3.4 Chloride 96 95 L Carbon Dioxide 27 27 Anion Gap 10.0 10.0 BUN 7 L 10 Creatinine 0.6 L 0.8 GFR Calculation 97 86 Glucose 104 135 H Calcium 9.3 9.4 Magnesium 1.9 Total Bilirubin 0.4 0.4 AST 29 35 ALT 25 24 Alkaline Phosphatase 65 65 Total Protein 6.1 6.3 Albumin 3.5 3.5 Globulin 2.6 2.8 Albumin/Globulin Ratio 1.3 1.3 Preliminary micro results at discharge 08/30/22 11:46 Urine Culture - Preliminary Urine - Clean Void Mid-Stream Klebsiella oxytoca 08/30/22 10:52 Blood Culture - Preliminary Blood 08/30/22 10:46 Blood Culture - Preliminary Blood Discharge Plan Patient/Caregiver Discharge Instructions Activity: resume usual activities as tolerated Diet: Cardiac Instructions: Metoprolol (By mouth), Apixaban (By mouth), Urinary Tract Infection in Men (DC), Tachycardia (GEN) Prescriptions: New Eliquis 5 mg Tablet 5 mg PO BID Qty: 60 0RF guaifenesin [Mucus Relief ER] 600 mg Tablet Extended Release 12hr 1,200 mg PO BID 7 Days Qty: 28 0RF [facility] 10 billion cell -200 mg Capsule, Sprinkle 1 cap PO BID Qty: 20 0RF metoprolol tartrate 25 mg Tablet 37.5 mg PO DAILY Qty: 90 0RF cefdinir 300 mg capsule 300 mg PO BID Qty: 20 0RF Continued methocarbamol 500 mg tablet See Rx Instructions .ROUTE .COMPLEX Qty: 90 2RF Dose Instruction: TAKE ONE TABLET BY MOUTH THREE TIMES DAILY Rx Instructions: TAKE ONE TABLET BY MOUTH THREE TIMES DAILY tramadol 50 mg tablet 50 mg PO Q4-6H PRN (Reason: pain) Qty: 120 3RF fenofibrate micronized 134 mg capsule 134 mg PO HS Qty: 90 0RF irbesartan-hydrochlorothiazide 150-12.5 mg tablet 1 tab PO QDAY Qty: 90 0RF rosuvastatin 5 mg tablet 5 mg PO HS Qty: 90 0RF metoprolol succinate 25 mg tablet extended release 24 hr 25 mg PO QDAY Qty: 30 0RF hydrocodone 10 mg-chlorpheniramine 8 mg/5 mL oral susp extend.rel 12hr 10-8 mg/5 mL 5 ml PO Q12HP PRN (Reason: cough) omeprazole 20 mg capsule,delayed release(DR/EC) 20 mg PO QHS dicloxacillin 500 mg capsule 500 mg PO BID trazodone 100 mg tablet 200 mg PO HS Discontinued azithromycin 250 mg tablet 250 mg PO QDAY 4 Days Qty: 4 0RF Rx Instructions: start on day 2 of therapy Follow Up Plan Follow up with: Annabelle Lee DO [Physician] - (Your primary care physician will contact you to schedule an appointment.) Rafael Griffin MD [Physician] - Patient Disposition: Home, Self-Care Overall status at discharge: patient is back to baseline Discharge Orders: Discharge Order (Routine); Ordered 09/01/22 Ordered By: Rafael Griffin QUALITY VTE Deep Vein Thrombosis/Pulmonary Embolism Present on Admission: No
[2022-09-01] MEDS ORDERED: guaiFENesin/CODEINE 10 ML UDC PO SCH (21:00)
--- NOTE | 2022-09-03 11:27 | EKG ---
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
[2022-09-27] MEDS ORDERED: MEPOLIZUMAB SUB-Q SCH (09:00)
[2022-09-27] MEDS ORDERED: [UNRECOGNIZED DRUG - OTHER] SUB-Q SCH (09:00)
== END 2022-09-01 15:40 | disposition home or self-care (01) | DRG 872 ==
LOC: ED 10:05 → ICU 15:47
PROVIDERS: ADMIT Internal Medicine; ATTEND Internal Medicine